=== PATIENT | female | born 1970 | race Two or more races ===

== ENCOUNTER 2021-06-11 07:43 | Outpatient (REF) | payer OTHER, SELFPAY ==
--- NOTE | 2021-06-11 | EMG_ITS ---
Left tibial and peroneal motor studies were performed. Left superficial, peroneal and sural sensory studies were performed and tibial H-reflex was obtained. Paraspinal muscles were tested with a needle. IMPRESSION: Mild peripheral neuropathy affecting sensory nerves. MD MUNA Valentine/BETO / [id number]
== END 2021-06-11 07:44 | disposition home or self-care (01) ==
LOC: HO.NEURO 07:43
PROVIDERS: Visit Provider Emergency Medicine
DX: G62.9 Polyneuropathy, unspecified (principal)
CPT/HCPCS: 95860; 95886; 95909

== ENCOUNTER 2021-08-11 07:55 | Outpatient (REF) | payer OTHER, SELFPAY ==
--- NOTE | ~2021-08-11 | MM_ITS ---
EXAMINATION: MM SCREENING DIGITAL BREAST TOMOSYNTHESIS, BILATERAL CLINICAL INFORMATION: Screening. Asymptomatic. The lifetime risk of breast cancer based on the Tyrer-Cuzick Model is 4.3%. COMPARISON: Mammography: April 03, 2019 and studies dating back to September 26, 2012 TECHNIQUE: Digital breast tomosynthesis is performed in both the craniocaudal and mediolateral oblique views along with computer-aided detection (CAD). Synthesized 2D images are generated from the tomosynthesis. FINDINGS: The breasts are heterogeneously dense, which may obscure small masses (ACR BI-RADS breast composition Category c). There are no significant masses, abnormal calcifications, or other abnormalities. MM/MM tomosynthesis screening BI IMPRESSION: There are no significant changes from prior study. ASSESSMENT: BI-RADS 1: Negative RECOMMENDATION: Routine annual mammography screening. This patient's information was entered into a reminder system with a target due date for their next mammogram.
== END 2021-08-11 07:56 | disposition home or self-care (01) ==
LOC: HO.MAMMO 07:55
PROVIDERS: PCP Family Medicine; Visit Provider Family Medicine
DX: Z12.31 Encounter for screening mammogram for malignant neoplasm of breast (principal)
CPT/HCPCS: 77063; 77067

== ENCOUNTER 2022-08-16 07:49 | Outpatient (REF) | payer OTHER, SELFPAY ==
--- NOTE | ~2022-08-16 | MM_ITS ---
EXAMINATION: MM SCREENING DIGITAL BREAST TOMOSYNTHESIS, BILATERAL CLINICAL INFORMATION: Screening. Asymptomatic. The lifetime risk of breast cancer based on the Tyrer-Cuzick Model is 4%. COMPARISON: Mammography: 08/11/2021, 04/03/2019, 03/21/2018 TECHNIQUE: Digital breast tomosynthesis is performed in both the craniocaudal and mediolateral oblique views along with computer-aided detection (CAD). Synthesized 2D images are generated from the tomosynthesis. FINDINGS: The breasts are heterogeneously dense, which may obscure small masses (ACR BI-RADS breast composition Category c). There is a fibronodular parenchymal pattern is similar to prior studies. No interval mass or developing density or architectural abnormality. Numerous bilateral round and some rim calcifications are present. The axilla and skin contours are unremarkable. There are no significant changes. MM/MM tomosynthesis screening BI IMPRESSION: No mammographic evidence of malignancy. ASSESSMENT: BI-RADS 2: Benign RECOMMENDATION: Routine annual mammography screening. This patient's information was entered into a reminder system with a target due date for their next mammogram.
== END 2022-08-16 07:50 | disposition home or self-care (01) ==
LOC: HO.MAMMO 07:49
PROVIDERS: PCP Family Medicine; Visit Provider Family Medicine
DX: Z12.31 Encounter for screening mammogram for malignant neoplasm of breast (principal)
CPT/HCPCS: 77063; 77067

== ENCOUNTER 2023-03-07 09:13 | Outpatient (REF) | payer OTHER, SELFPAY ==
[2023-03-09 13:49] LABS: TSpotTB Invalid (Negative)
== END 2023-03-07 09:14 | disposition home or self-care (01) ==
LOC: HO.LAB 09:13
PROVIDERS: PCP Family Medicine; Visit Provider Internal Medicine
DX: Z00.00 Encounter for general adult medical examination without abnormal findings (principal); Z11.1 Encounter for screening for respiratory tuberculosis
CPT/HCPCS: 36415; 86481

== ENCOUNTER 2023-03-11 10:23 | Outpatient (REF) | payer OTHER, SELFPAY ==
[2023-03-13 21:48] LABS: TSpotTB Invalid (Negative)
== END 2023-03-11 10:24 | disposition home or self-care (01) ==
LOC: HO.LAB 10:23
PROVIDERS: PCP Family Medicine; Visit Provider Internal Medicine
DX: Z00.00 Encounter for general adult medical examination without abnormal findings (principal)
CPT/HCPCS: 36415; 86481

== ENCOUNTER 2023-08-01 18:48 | Emergency (ER) | payer OTHER, SELFPAY ==
[2023-08-01 19:23] VITALS: BP 148/73; PULSE 82; RESP 18; TEMP 36.9; O2SAT 98; BMI 30.9
--- NOTE | 2023-08-01 19:24 | ED_ITS ---
HPI - General Adult General Chief complaint: Abdominal Pain Stated complaint: abd pain x1 wk Time Seen by Provider: 08/01/23 21:40 Source: patient and ensemble member Mode of arrival: ambulatory History of Present Illness HPI narrative: 53-year-old female who presents with 1 week of left upper abdominal discomfort that is not been associated with any traumatic injury, no fevers/chills/nausea/vomiting/obstipation patient has continued to have regular bowel movements. She denies any new cough or shortness of breath. Related Data Allergies Allergy/AdvReac Type Severity Reaction Status Date / Time No Known Allergies Allergy Verified 08/01/23 19:27 [No Known Allergies*] Review of Systems 2 Review of Systems: Pertinent positives and negatives as stated in HPI [facility] Past Medical History Source: nursing notes reviewed Social History Social History Alcohol intake: current Alcohol intake frequency: holidays/special occasions only Smoked in Last 30 Days: No Use of substances other than those prescribed or required for medical reasons: No Advance Directives: No Advance Directives Information Provided: No Physical Exam ED Vital Signs: Vital Signs - 24 hr 08/01/23 19:23 08/01/23 22:23 Temperature 98.4 F 98.1 F Pulse Rate 82 68 Respiratory Rate 18 16 Blood Pressure 148/73 H 123/79 Pulse Oximetry 98 99 Oxygen Delivery Method Room Air Room Air BMI result Body Mass Index 30.9 VITAL SIGNS: Reviewed. GENERAL: Well developed, well nourished, in no acute distress. HEAD: Normocephalic/atraumatic EYES: PERRLA, EOMI EARS: Ext canals without abnormality NOSE: Nares patent bilateral OROPHARYNX: no oral lesions noted, posterior pharynx clear NECK: Supple, no adenopathy LUNGS: Normal breath sounds. No adventitious sounds or accessory muscle use. SpO2<99> CARDIOVASCULAR: Regular rate and rhythm without noted murmurs ABDOMEN: Soft, minimal tenderness on palpation over area of concern, non- distended with bowel sounds. MUSCULOSKELETAL: No tenderness, deformities, or effusions noted on gross inspection. EXTREMITIES: No cyanosis, clubbing or edema. SKIN: Inspection of the skin reveals no rashes NEUROLOGIC: Alert and oriented x 4. Strength and sensation to light touch were grossly intact x 4. Course Course Course Narrative: This is a rapid medical exam: Additional HPI, GLADIS, PE not included below will be deferred to primary provider. Patient is a 53-year-old [place]de[place] speaking female presenting to the emergency department with LUQ abdominal pain for the past week. Denies fever. Reports nausea without vomiting. Took ibuprofen yesterday. Plan: labs, UA Medical Decision Making Medical Decision Making [facility] Narrative: 43-year-old female with history and clinical presentation, DDX: Musculoskeletal, gastritis, history and clinical exam not consistent with bowel obstruction/cholecystitis/pancreatitis. I reviewed all investigations and hematologic indices are grossly within normal limits as they do not demonstrate any leukocytosis/left shift, no anemia or thrombocytopenia. Chemistry indices do not demonstrate any electrolyte or liver enzyme abnormalities, no SAMANTHA and lipase is within normal limits. My interpretation is this is either musculoskeletal in nature but possibility of mild gastritis. I discussed all results and findings with the patient at bedside and she was recommended to start taking an antacid that is available [id number]. She does have follow-up appoint with her primary care provider on 08/23. Differential Diagnosis Differential Diagnoses: The differential diagnosis associated with the presentation includes Please see the discussion above Admission/Observation Consideration of admission/observation: Escalation of care including admission/observation considered Please see the discussion above Lab Data [facility] Lab Attestation statement: I reviewed the patient's lab results. Please see the discussion above 08/01/23 20:13 08/01/23 20:13 Labs: Lab Results 08/01/23 08/01/23 08/01/23 Range/Units 20:13 20:13 20:14 WBC 10.5 (4.8-10.8) X10*3/uL RBC 5.17 (4.20-5.50) X10*6/uL Hgb 14.9 (12.0-16.0) g/dl Hct 44.6 (37.0-47.0) % MCV 86.3 (80.0-98.0) fL MCH 28.8 (27.0-33.0) pg MCHC 33.4 (31.0-35.0) g/dl RDW 13.8 (11.0-16.0) % Plt Count 296 (160-400) X10*3/uL MPV 10.0 (9.4-12.3) fL Immature Gran % (Auto) 0.4 (0.0-0.4) % Neut % (Auto) 57.7 (45-73) % Lymph % (Auto) 34.9 (20-40) % Boyle % (Auto) 5.0 (2-11) % Eos % (Auto) 1.5 (0-4) % Baso % (Auto) 0.5 (0-2) % Lymph # (Auto) 3.7 (1.2-4.9) X10*3/uL Boyle # (Auto) 0.5 (0.1-1.2) X10*3/uL Eos # (Auto) 0.2 (0.0-0.4) X10*3/uL Baso # (Auto) 0.1 (0.0-0.2) X10*3/uL Abs Immat Gran (auto) 0.04 H (0.00-0.03) X10*3/uL Absolute Neuts (auto) 6.1 (2.0-8.3) x10*3/uL Absolute Nucleated RBC 0.000 (0.0-0.012) X10*3/uL Nucleated RBC % (auto) 0.0 (0.0-0.2) /100WBC Sodium 138 (135-145) mmol/L Potassium 4.0 (3.3-5.1) mmol/L Chloride 104 (96-108) mmol/L Carbon Dioxide 25 (22-29) mmol/L Anion Gap 13 (12-20) BUN 17 H (9-16) mg/dL Creatinine 1.22 (0.5-1.4) mg/dL Estim Creat Clear Calc 58.5 Estimated GFR 46 Random Glucose 244 H (60-115) mg/dL Calcium 9.8 (8.4-10.2) mg/dL Total Bilirubin 0.3 (0.0-1.0) mg/dL AST 19 (5-31) U/L ALT 19 (0-31) U/L Alkaline Phosphatase 97 (39-117) U/L Total Protein 8.0 (6.5-8.0) g/dL Albumin 4.3 (3.5-5.0) g/dL Lipase 64 (8-78) U/L Urine Color Yellow Urine Appearance Clear Urine pH 6.0 (5.0-9.0) Ur Specific [place] <= 1.005 (1.005-1.025) Urine Protein Negative (Neg-Trace) mg/dL Urine Glucose (UA) Negative (Negative) mg/dL Urine Ketones Negative (Negative) mg/dL Urine Blood Negative (Negative) Urine Nitrite Negative (Negative) Ur Leukocyte Esterase Small (1+) H (Negative) Urine RBC 0-2 (0-2) /HPF Urine WBC 6-10 H (0-5) /HPF Ur Squamous Epith Cells 3-5 (0-2) /HPF Urine Bacteria Trace (None Seen) Hyaline Casts 0-2 (0-2) /LPF External Record Review External record reviewed: Outpatient record and Prior outpatient labs Chronic Conditions Patient?s care impacted by: Diabetes Discharge Plan Discharge Clinical Impression: Abdominal discomfort, Musculoskeletal pain, Gastritis Patient Disposition: Home, Self-Care Instructions: Gastritis (ED), Diet for Stomach Ulcers and Gastritis (ED), Musculoskeletal Pain (ED) Additional Instructions: 1. Reanudar todos los medicamentos caseros seg?n lo recetado. 2. Tylenol 1000 mg, por v?a oral, cada 6 horas seg?n sea necesario para controlar el dolor. No exceda los 4000 mg en 24 horas. 3. Ibuprofeno 400 mg, por v?a oral con leche o comida, cada 6 horas seg?n sea necesario para controlar el dolor. 4. Recomiendo medicamentos para el control del ?cido de venta barbara maris Pepcid/Zantac o puedes usar Tums o Rolaids. 5. Por favor acuda a acosta kadeem programada con acosta m?dico de atenci?n primaria. Regrese a la sepideh de emergencias si los s?ntomas empeoran. 1. Resume all home medications as prescribed. 2. Tylenol 1000 mg, orally, every 6 hours as needed for pain control. Do not exceed 4000 mg within 24 hours. 3. Ibuprofen 400 mg, orally with milk or food, every 6 hours as needed for pain control. 4. I recommend ruxe-pks-hitgzyw acid control medications such as Pepcid/Zantac or you could use Tums or Rolaids. 5. Please keep your scheduled appointment with your primary care doctor. Return to the ER for worsening symptoms. Referrals: [facility] [Primary Care Provider] - Print Language: [place] Verdean
[2023-08-01 20:21] LABS: MANUAL DIFF FLAG NO
[2023-08-01 20:22] LABS: Basophils Absolute Auto 0.1 X10*3/uL (0.0-0.2); Basophils Percent Auto 0.5 % (0-2); Eosinophils Absolute Auto 0.2 X10*3/uL (0.0-0.4); Eosinophils Percent Auto 1.5 % (0-4); Hematocrit 44.6 % (37.0-47.0); Hemoglobin 14.9 g/dl (12.0-16.0); Imm Gran Abs Auto 0.04 X10*3/uL (0.00-0.03); Imm Gran Pct Auto 0.4 % (0.0-0.4); Lymphocytes Absolute Auto 3.7 X10*3/uL (1.2-4.9); Lymphocytes Percent Auto 34.9 % (20-40); Mean Corpuscular HGB Conc 33.4 g/dl (31.0-35.0); Mean Corpuscular Hemoglobin 28.8 pg (27.0-33.0); Mean Corpuscular Volume 86.3 fL (80.0-98.0); Monocytes Absolute Auto 0.5 X10*3/uL (0.1-1.2); Neutrophils Absolute Auto 6.1 x10*3/uL (2.0-8.3); Neutrophils Percent Auto 57.7 % (45-73); Platelet Count 296 X10*3/uL (160-400); Red Blood Count 5.17 X10*6/uL (4.20-5.50); Red Cell Distribution Width 13.8 % (11.0-16.0); White Blood Count 10.5 X10*3/uL (4.8-10.8)
[2023-08-01 20:23] LABS: Appearance Urine Clear; Color Urine Yellow; Glucose Urine UA Negative (Negative); Leukocyte Esterase Urine Small (1+) (Negative); Nitrite Urine Negative (Negative); Specific Gravity - Urine <= 1.005 (1.005-1.025); UMIC TRIGGER UACC YES; Urine Blood Negative (Negative); Urine Ketones Negative (Negative); Urine Protein Negative (Neg-Trace)
[2023-08-01 20:28] LABS: Bacteria Urine Trace (None Seen); Hyaline Casts Urine 0-2 /LPF (0-2); RBC Urine 0-2 /HPF (0-2); UACC Culture Trigger YES
[2023-08-01 20:36] LABS: Alanine Aminotransferase 19 U/L (0-31); Albumin Level 4.3 g/dL (3.5-5.0); Alkaline Phosphatase 97 U/L (39-117); Anion Gap 13 (12-20); Aspartate Amino Transferase 19 U/L (5-31); Bilirubin Total 0.3 mg/dL (0.0-1.0); Blood Urea Nitrogen 17 mg/dL (9-16); Calcium 9.8 mg/dL (8.4-10.2); Carbon Dioxide 25 mmol/L (22-29); Chloride 104 mmol/L (96-108); Creatinine Clr Calc Pharmacy 58.5; Estimated Glomerular Filt Rate 46; Glucose Random 244 mg/dL (60-115); Lipase 64 U/L (8-78); Sodium 138 mmol/L (135-145)
[2023-08-01 22:23] VITALS: BP 123/79; PULSE 68; RESP 16; TEMP 36.7; O2SAT 99
== END 2023-08-02 03:22 | disposition home or self-care (01) ==
PROVIDERS: Registered Nurse Emergency; Emergency Provider Student in an Organized Health Care Education/Training Program
DX: R10.12 Left upper quadrant pain (principal); K29.70 Gastritis, unspecified, without bleeding; M79.10 Myalgia, unspecified site; Z79.899 Other long term (current) drug therapy
CPT/HCPCS: 36415; 80053; 81001; 83690; 85025; 87086; 99283; 99284

== ENCOUNTER 2023-08-22 07:55 | Outpatient (REF) | payer OTHER, SELFPAY ==
--- NOTE | ~2023-08-22 | MM_ITS ---
EXAMINATION: MM SCREENING DIGITAL BREAST TOMOSYNTHESIS, BILATERAL CLINICAL INFORMATION: Screening. Asymptomatic. COMPARISON: Mammography: 08/15/2022, 08/11/2021, 04/03/2019, 03/21/2018 TECHNIQUE: Digital breast tomosynthesis is performed in both the craniocaudal and mediolateral oblique views along with computer-aided detection (CAD). Synthesized 2D images are generated from the tomosynthesis. FINDINGS: The breasts are heterogeneously dense, which may obscure small masses (ACR BI-RADS breast composition Category c). Once again, there are benign type scattered calcifications in both breasts with no aggressive changes. No suspicious grouping noted. They appear unchanged from prior exams. Heterogeneously dense parenchyma once again has a somewhat fibronodular appearance, which is unchanged. The overall pattern is stable. There are no suspicious masses or areas of architectural distortion in either breast. MM/MM tomosynthesis screening BI IMPRESSION: No mammographic evidence of malignancy. Stable examination. Stable benign findings including bilateral breast calcifications without any aggressive changes. ASSESSMENT: BI-RADS BI-RADS 2 - Benign Findings RECOMMENDATION: Routine annual mammography screening. 1 year F/U This examination should not preclude the clinical evaluation of a suspicious palpable abnormality. This patient's information was entered into a reminder system with a target due date for their next mammogram.
== END 2023-08-22 07:56 | disposition home or self-care (01) ==
LOC: HO.MAMMO 07:55
PROVIDERS: PCP Family Medicine; Visit Provider Family Medicine
DX: Z12.31 Encounter for screening mammogram for malignant neoplasm of breast (principal)
CPT/HCPCS: 77063; 77067

== ENCOUNTER → 2023-08-22 08:00 | Outpatient (BNV) | payer OTHER, SELFPAY | PROVIDERS: PCP Family Medicine; Visit Provider Radiology Diagnostic Radiology | DX: Z12.31 Encounter for screening mammogram for malignant neoplasm of breast (principal) | CPT/HCPCS: 77063; 77067 ==

== ENCOUNTER 2023-08-23 12:00 | Outpatient (REF) | payer OTHER, SELFPAY ==
[2023-08-23 13:04] LABS: MANUAL DIFF FLAG NO
[2023-08-23 13:12] LABS: Basophils Percent Auto 0.5 % (0-2); Eosinophils Absolute Auto 0.1 X10*3/uL (0.0-0.4); Eosinophils Percent Auto 1.3 % (0-4); Hemoglobin 15.3 g/dl (12.0-16.0); Imm Gran Abs Auto 0.02 X10*3/uL (0.00-0.03); Imm Gran Pct Auto 0.3 % (0.0-0.4); Lymphocytes Absolute Auto 2.6 X10*3/uL (1.2-4.9); Mean Corpuscular HGB Conc 33.3 g/dl (31.0-35.0); Mean Corpuscular Hemoglobin 28.8 pg (27.0-33.0); Mean Corpuscular Volume 86.6 fL (80.0-98.0); Mean Platelet Volume 9.9 fL (9.4-12.3); Monocytes Absolute Auto 0.5 X10*3/uL (0.1-1.2); Monocytes Percent Auto 6.1 % (2-11); Neutrophils Absolute Auto 4.4 x10*3/uL (2.0-8.3); Neutrophils Percent Auto 57.8 % (45-73); Platelet Count 361 X10*3/uL (160-400); Red Blood Count 5.31 X10*6/uL (4.20-5.50); Red Cell Distribution Width 13.7 % (11.0-16.0); White Blood Count 7.7 X10*3/uL (4.8-10.8)
[2023-08-23 14:05] LABS: Creatinine Urine 184.34 mg/dL; Microalbum/Creatinine Ratio Ur 61.8 ug/mg cr (<30)
[2023-08-23 14:08] LABS: Cholesterol 163 mg/dL (<200); HDL Cholesterol 36 mg/dL (>40); LDL Cholesterol Calculated 86 mg/dL (<100); Triglycerides 208 mg/dL (<150)
[2023-08-23 14:09] LABS: Alanine Aminotransferase 21 U/L (0-31); Albumin Level 4.2 g/dL (3.5-5.0); Alkaline Phosphatase 104 U/L (39-117); Anion Gap 13 (12-20); Aspartate Amino Transferase 23 U/L (5-31); Bilirubin Total 0.3 mg/dL (0.0-1.0); Blood Urea Nitrogen 15 mg/dL (9-16); Calcium 9.2 mg/dL (8.4-10.2); Carbon Dioxide 26 mmol/L (22-29); Chloride 104 mmol/L (96-108); Estimated Glomerular Filt Rate 59; Glucose Random 248 mg/dL (60-115); Potassium 3.9 mmol/L (3.3-5.1); Sodium 139 mmol/L (135-145); Total Protein 8.2 g/dL (6.5-8.0)
[2023-08-23 14:20] LABS: TSH reflex Free T4 2.77 uIU/mL (0.32-4.0)
[2023-08-23 14:28] LABS: Folate 15.4 ng/mL (> or = 4.0); Vitamin B12 549 pg/mL (200-900)
[2023-08-23 14:51] LABS: Reflex LDLD? No
== END 2023-08-23 12:01 | disposition home or self-care (01) ==
LOC: HO.HHCL 12:00
PROVIDERS: Visit Provider Family Medicine
DX: E11.69 Type 2 diabetes mellitus with other specified complication (principal); E03.9 Hypothyroidism, unspecified; R10.12 Left upper quadrant pain
CPT/HCPCS: 36415; 80053; 80061; 82043; 82570; 82607; 82746; 84443; 85025

== ENCOUNTER 2023-09-20 08:19 | Outpatient (REF) | payer OTHER, SELFPAY ==
--- NOTE | ~2023-09-20 | CT_ITS ---
EXAMINATION: CT ABDOMEN WITHOUT CONTRAST CLINICAL INFORMATION: Left upper quadrant pain, hydroureter COMPARISON: From 07/27/2008 TECHNIQUE: Contiguous axial thin section helical images of the abdomen were performed without contrast. The data set was reformatted in the coronal and sagittal planes and reviewed on an independent workstation. This CT examination was performed using dose optimization techniques as appropriate, variously including the following: *Automated exposure control *Adjustment of mA and/or kV according to patient size (this includes techniques or standardized protocols for targeted exams where dose is matched to indication/reason for exam; i.e. extremities or head) *Use of iterative reconstruction technique DLP: 372 mGy-cm FINDINGS: LUNG BASES: Clear LIVER, GALLBLADDER, BILIARY TREE: Liver is of low attenuation due to hepatic steatosis without intrahepatic masses or ductal dilatation gallbladder is unremarkable PANCREAS: There are no pancreatic masses or ductal dilatation. SPLEEN: There is unremarkable ADRENAL GLANDS AND KIDNEYS: Adrenal glands are normal. Right kidney replaced by large cystic mass measured approximately 23 x 20 x 15.3 cm with dilated ureter. BOWEL LOOPS: Visualized loops of bowel and stomach are normal LYMPH NODES: Normal. VASCULAR: Unremarkable. BONES: Unremarkable CT/CT abdomen wo IV con IMPRESSION: No interval change in an appearance of replaced by cystic masses right kidney and hepatic steatosis. No abnormal findings in the left upper outer quadrant, to explain pain Fleischner guidelines were followed.
== END 2023-09-20 08:20 | disposition home or self-care (01) ==
LOC: HO.CT 08:19
PROVIDERS: Visit Provider Family Medicine
DX: R10.12 Left upper quadrant pain (principal); N28.9 Disorder of kidney and ureter, unspecified; N13.4 Hydroureter
CPT/HCPCS: 74150

== ENCOUNTER 2023-10-03 14:52 | Outpatient (AMB) | payer OTHER, SELFPAY ==
--- NOTE | 2023-10-03 15:01 | MHC.OFFVIS ---
Intake Intake Visit Reasons: Hydroureter Intake Note: New Patient presents for initial visit for hydroureter Urology Medications: none Blood Thinner: none Wild Animal Caretaker Required: Yes Wild Animal Caretaker Name: MONE MILLERIKER Accompanied by: Self / Same As Patient Allergies No Known Allergies [No Known Allergies*] Allergy (Verified 10/03/23 15:33) Medication List - Last Reconciled 10/03/23 by KASHIF Elizabeth- calcium carbonate-vitamin D3 600 mg-5 mcg (200 unit) tabs PO dulaglutide (Trulicity) 0.75 mg subcut QWEEK gabapentin mg PO levothyroxine 125 mcg PO DAILY losartan 25 mg PO DAILY metformin ER 1,000 mg PO BID omega 2-qya-ypo-fish oil 300 mg (120 mg- 180mg)-1,000 mg caps PO pioglitazone 45 mg PO DAILY pravastatin 80 mg PO DAILY HPI HPI Comments History of Present Illness Details Luh is a very pleasant 53-year-old Kyrgyz-speaking female patient of Dr. Trevino. She has a past medical history of dyslipidemia, type 2 diabetes, hypothyroidism, hypertension, and nonfunctioning kidney. She presents to the office today as a new patient for right-sided cystic mass on recent CT. In discussion with the patient today she reports to be doing and feeling well. She reports having followed up with her PCP for left upper quadrant pain she had been experiencing at which time a CT of the abdomen and pelvis without contrast was ordered. These results reviewed with the patient today. Adrenal glands are normal. Right kidney replaced by large cystic mass measuring approximately 23 x 20 x 15.3 cm. No interval change in appearance of replaced by cystic masses right kidney and hepatic stenosis. Patient reports having followed up with Urology in the past regarding her nonfunctioning kidney as well as cystic mass however states follow up was many years ago. In review of patient's chart it appears last CT urogram was approximately in 2007. Discussed obtaining more recent imaging for further assessment evaluation. Patient is agreeable. She otherwise denies any bothersome urinary issues or concerns at this time. She denies urinary urgency, urinary frequency, incontinence, nocturia, hematuria, dysuria, foul smelling urine, changes to urinary stream, flank pain, fever, and or chills. She is happy with her current voiding parameters. She discusses left-sided upper quadrant pain she had been experiencing has since subsided. In office urinalysis results reviewed with the patient today. She otherwise offers no other issues or concerns at this time. [facility] Medical History (Updated 10/03/23 @ 20:46 by SALVADOR Elizabeth) Dyslipidemia Type 2 diabetes mellitus Hypothyroidism Non-functioning kidney Hypertension Left upper quadrant pain Social History Alcohol intake: current Alcohol intake frequency: holidays/special occasions only Review of Systems Const Reports as per HPI Eyes Reports no additional complaints ENT Reports no additional complaints Card Reports as per HPI Resp Reports no additional complaints GI Reports as per HPI Reports as per HPI Musc Reports no additional complaints Neuro Reports no additional complaints Psych Reports no additional complaints Endo Reports as per HPI Demond/Lymph Reports no additional complaints Aller/Immun Reports no additional complaints Physical Exam Const General: cooperative, healthy appearing, comfortable, no acute distress, well developed, alert and awake Nutritional Appearance: overweight Orientation/consciousness: patient oriented x3 Limitations: no limitations HEENT Head: Yes normal to inspection, Yes normocephalic and Yes atraumatic Ears: hearing grossly normal bilaterally Eyes General: appearance normal, both eyes and all related structures Neck Neck: Yes normal visual inspection and Yes trachea midline Chest Chest palpation & inspection: normal inspection of the chest Resp Effort & Inspection: normal respiratory effort and able to speak in complete sentences Cardio Rate: regular rate GI Inspection: Yes normal to inspection General: Yes no CVA tenderness Back/Spine/Pelvis Back: no CVA tenderness Skin General skin exam: no rashes or lesions noted Neuro General: patient oriented x3 Extrem General: Yes normal to inspection Psych Appearance: grossly normal and well kempt Mental Status: mental status grossly normal Speech and movement: Normal speech and movement present and Clear speech present Affect: normal affect Attitude: cooperative Thought process: Normal thought process present Thought content: Normal thought content present Insight: Fair insight present (Psych) Judgement: Fair judgement present (Psych) Results AMB Urinalysis, Automated UA Leukoctes 0 He/uL Last Edit by Katelyn Baumann on 10/03/23 15:19 UA Nitrite Negative Last Edit by Katelyn Baumann on 10/03/23 15:19 UA Urobilinogen 0.2 mg/dL Last Edit by Katelyn Baumann on 10/03/23 15:19 UA Protein 0 mg/dL Last Edit by Katelyn Baumann on 10/03/23 15:19 UA pH 6.0 Last Edit by Katelyn Baumann on 10/03/23 15:19 UA Blood 0 Donte/uL Last Edit by Katelyn Baumann on 10/03/23 15:19 UA Specific [place] 1.015 Last Edit by Katelyn Baumann on 10/03/23 15:19 UA Ketone Negative Last Edit by Katelyn Baumann on 10/03/23 15:19 UA Bilirubin 0 mg/dL Last Edit by Katelyn Baumann on 10/03/23 15:19 UA Glucose 0 mg/dL Last Edit by Katelyn Baumann on 10/03/23 15:19 Results Reviewed Results Reviewed: Laboratory Last Values Urine pH (Auto) 6.0 10/03/23 15:18 Specific [place] (Auto) 1.015 10/03/23 15:18 Urine Protein (Auto) 0 mg/dL 10/03/23 15:18 Glucose (UA)(Auto) 0 mg/dL 10/03/23 15:18 Urine Ketones (Auto) Negative 10/03/23 15:18 Urine Blood (Auto) 0 Donte/uL 10/03/23 15:18 Urine Nitrite (Auto) Negative 10/03/23 15:18 Urine Bilirubin (Auto) 0 mg/dL 10/03/23 15:18 Urine Urobilinogen (Auto) 0.2 mg/dL 10/03/23 15:18 Leukocyte Esterase (Auto) 0 He/uL 10/03/23 15:18 Date of Service: 09/20/23 EXAMINATION: CT ABDOMEN WITHOUT CONTRAST FINDINGS: LUNG BASES: Clear LIVER, GALLBLADDER, BILIARY TREE: Liver is of low attenuation due to hepatic steatosis without intrahepatic masses or ductal dilatation gallbladder is unremarkable PANCREAS: There are no pancreatic masses or ductal dilatation. SPLEEN: There is unremarkable ADRENAL GLANDS AND KIDNEYS: Adrenal glands are normal. Right kidney replaced by large cystic mass measured approximately 23 x 20 x 15.3 cm with dilated ureter. BOWEL LOOPS: Visualized loops of bowel and stomach are normal LYMPH NODES: Normal. VASCULAR: Unremarkable. BONES: Unremarkable CT/CT abdomen wo IV con IMPRESSION: No interval change in an appearance of replaced by cystic masses right kidney and hepatic steatosis. No abnormal findings in the left upper outer quadrant, to explain pain. Assessment & Plan Assessment & Plan (1) Right renal mass: Code(s): N28.89 - Other specified disorders of kidney and ureter (2) Non-functioning kidney: Code(s): N28.9 - Disorder of kidney and ureter, unspecified Plan In office urinalysis results reviewed with the patient today; as noted above. Recent CT results reviewed with the patient today; as noted above. Will obtain CT renal mass protocol for further assessment evaluation. BUN and creatinine ordered for imaging Patient denies any bothersome urinary issues at this time. Patient reports be happy with current voiding parameters. Educated and encouraged on the importance of drinking plenty of water daily. Follow-up in 1-2 months with imaging to be completed prior; or sooner with any issues, concerns, and or questions. Orders: Orders Creatinine Today N28.89 - Other specified disorders of kidney and ureter AMB Urinalysis Automated Today Z13.9 - Encounter for screening, unspecified CT abdomen pelvis wo/w IV con Today N28.89 - Other specified disorders of kidney and ureter Blood Urea Nitrogen Today N28.89 - Other specified disorders of kidney and ureter Patient Instructions: The patient had an opportunity to ask questions regarding the treatment plan. All questions were answered. Physical exam, labs, and imaging were discussed and reviewed in detail. As well as risks, benefits, and discussion of treatment choices. No major barriers to understanding were identified. The patient expressed understanding and agreement with the above treatment plan. The patient was made aware they should contact our office by phone for worsening of their current condition, the appearance of new symptoms, or with any questions or concerns. Compliance is encouraged with any medications and follow up testing that is ordered. It is a privilege to be allowed the opportunity to participate in? your urological care.? Again, if you have any questions or concerns If you have any questions or concerns please do not hesitate to contact me. The office is [phone]. This note is constructed using voice recognition software. While every effort has been made to ensure accuracy compact assembler errors may have been included. Yours sincerely, SALVADOR Elizabeth Coding Level of Care Code New Pt Level 3 (88478) Diagnoses Right renal mass N28.89 Non-functioning kidney N28.9
== END 2023-10-03 15:40 | disposition home or self-care (01) ==
PROVIDERS: PCP Family Medicine; Visit Provider Nurse Practitioner Family
DX: N28.89 Other specified disorders of kidney and ureter (principal); N28.9 Disorder of kidney and ureter, unspecified
CPT/HCPCS: 99203

== ENCOUNTER → 2023-10-03 14:52 | Outpatient (BNVA) | payer OTHER, SELFPAY | PROVIDERS: PCP Family Medicine; Visit Provider Nurse Practitioner Family | DX: N28.89 Other specified disorders of kidney and ureter (principal); N28.9 Disorder of kidney and ureter, unspecified | CPT/HCPCS: 81003; 99202 ==

== ENCOUNTER 2023-10-17 11:16 | Outpatient (REF) | payer OTHER, SELFPAY ==
[2023-10-17 14:27] LABS: Blood Urea Nitrogen 15 mg/dL (9-16); Estimated Glomerular Filt Rate > 60
== END 2023-10-17 11:17 | disposition home or self-care (01) ==
LOC: HO.HHCL 11:16
PROVIDERS: Visit Provider Nurse Practitioner Family
DX: N28.89 Other specified disorders of kidney and ureter (principal)
CPT/HCPCS: 36415; 82565; 84520

== ENCOUNTER 2023-10-18 15:42 | Outpatient (REF) | payer OTHER, SELFPAY ==
--- NOTE | ~2023-10-18 | CT_ITS ---
EXAMINATION: CT ABDOMEN AND PELVIS WITHOUT AND WITH CONTRAST CLINICAL INFORMATION: Cystic mass in the right kidney, follow-up COMPARISON: 09/20/2023 TECHNIQUE: Multidetector volumetric imaging was performed of the abdomen and pelvis before and after the IV administration of 85 mL of Omnipaque 300 intravenous contrast. Sagittal and coronal reformatted images were obtained on the technologist's workstation. This CT examination was performed using dose optimization techniques as appropriate, variously including the following: *Automated exposure control *Adjustment of mA and/or kV according to patient size (this includes techniques or standardized protocols for targeted exams where dose is matched to indication/reason for exam; i.e. extremities or head) *Use of iterative reconstruction technique DLP: 864 mGy-cm FINDINGS: LUNG BASES: The visualized lung bases are unremarkable. LIVER, GALLBLADDER, AND BILIARY TREE: The liver is normal in size, shape, and of low attenuation. No focal hepatic lesion or biliary ductal dilatation is present. The gallbladder is unremarkable with no evidence of radiopaque gallstones, gallbladder wall thickening, or obvious pericholecystic inflammatory changes. PANCREAS: Unremarkable SPLEEN: Unremarkable ADRENAL GLANDS: Unremarkable KIDNEYS AND URETERS: Left kidney is unremarkable. Right kidney replaced by cystic mass with thin septations, measured 21 x 21 x 15.4 cm unchanged since previous study. There is mass effect on the liver and right side of the colon. BLADDER: Unremarkable GASTROINTESTINAL TRACT: The small and large bowel are unremarkable. The appendix is unremarkable. ABDOMINAL WALL: No significant hernia is appreciated. LYMPH NODES: Normal VASCULAR: Unremarkable PELVIC VISCERA: Uterus is surgically absent. OSSEOUS STRUCTURES: Unremarkable CT/CT abdomen pelvis wo/w IV con IMPRESSION: No interval change in appearance of massively replaced by fluid right kidney with thin septations. Hepatic steatosis Fleischner guidelines were followed.
[2023-10-18] MEDS: iohexoL 350 MG/ML 100 ML INFUS..BTL IV (16:29)
== END 2023-10-18 15:43 | disposition home or self-care (01) ==
LOC: HO.CT 15:42
PROVIDERS: PCP Family Medicine; Visit Provider Nurse Practitioner Family
DX: N28.89 Other specified disorders of kidney and ureter (principal)
CPT/HCPCS: 74178; Q9967

== ENCOUNTER 2023-11-07 09:39 | Outpatient (AMB) | payer OTHER, SELFPAY ==
--- NOTE | 2023-11-07 09:42 | A.OFFVIS_ITS ---
Intake Intake Visit Reasons: 5w/CT(set) Intake Note: Patient presents for follow up visit for hydroureter/ct scan (imaging 10/18/23) Urology Medications: none Blood Thinner: none Lumber Yard Worker Required: Yes Lumber Yard Worker Name: MONE WADEIKER Accompanied by: Self / Same As Patient Allergies No Known Allergies [No Known Allergies*] Allergy (Verified 11/07/23 19:07) Medication List - Last Reconciled 11/07/23 by KASHIF Elizabeth- calcium carbonate-vitamin D3 600 mg-5 mcg (200 unit) tabs PO dulaglutide (Trulicity) mg subcut dulaglutide (Trulicity) 0.75 mg subcut QWEEK gabapentin mg PO levothyroxine 125 mcg PO DAILY losartan 25 mg PO DAILY metformin ER 1,000 mg PO BID omega 0-upl-zqc-fish oil 300 mg (120 mg- 180mg)-1,000 mg caps PO pioglitazone 45 mg PO DAILY pravastatin 80 mg PO DAILY HPI HPI Comments History of Present Illness Details Luh is a very pleasant 53-year-old [place]wandan-speaking female patient of Dr. Trevino. She has a past medical history of dyslipidemia, type 2 diabetes, hypothyroidism, hypertension, and nonfunctioning kidney. She presents to the office today for a follow up. Of note, patient was seen approximately 1 month ago as a new patient for right-sided cystic mass on recent as a new patient for right-sided cystic mass on recent CT KUB thus a CT urogram was ordered for further assessment evaluation. These results were reviewed with the patient today. Left kidney is unremarkable. Right kidney replaced by cystic mass with thin septations measuring 21 x 21 x 15.4 cm unchanged since previous studies. There is mass effect on the liver and right side of the colon. The bladder is unremarkable. In discussion with the patient today she reports to be doing and feeling well. Discussed CT findings as noted above as well as reviewed previous imaging dating back to 2018. It appears cystic mass has been stable. Discussed obtaining nuclear renal scan for further assessment evaluation. However, patient reports previously undergoing this exam and is already aware that she has a right nonfunctioning kidney. Discussed at length affects of nonfunctioning kidney she otherwise denies any bothersome urinary issues. She otherwise denies any bothersome urinary issues or concerns at this time. She denies urinary urgency, urinary frequency, incontinence, nocturia, hematuria, dysuria, foul smelling urine, changes to urinary stream, flank pain, fever, and or chills. She is happy with her current voiding parameters. In office urinalysis results reviewed with the patient today. She otherwise offers no o ther issues or concerns at this time. BUN: 08/20--17, 08/20--15, and 10/20--15 CREATNINE: 08/20--1.22, 08/20--0.98, and 10/20 0.87 PFSH Medical History Dyslipidemia Type 2 diabetes mellitus Hypothyroidism Non-functioning kidney Hypertension Left upper quadrant pain Social History Alcohol intake: current Alcohol intake frequency: holidays/special occasions only Review of Systems Const Reports as per HPI Eyes Reports no additional complaints ENT Reports no additional complaints Card Reports as per HPI Resp Reports no additional complaints GI Reports as per HPI Reports as per HPI Musc Reports no additional complaints Neuro Reports no additional complaints Psych Reports no additional complaints Endo Reports as per HPI Demond/Lymph Reports no additional complaints Aller/Immun Reports no additional complaints Physical Exam Const General: cooperative, healthy appearing, comfortable, no acute distress, well developed, alert and awake Nutritional Appearance: overweight Orientation/consciousness: patient oriented x3 Limitations: no limitations HEENT Head: Yes normal to inspection, Yes normocephalic and Yes atraumatic Ears: hearing grossly normal bilaterally Eyes General: appearance normal, both eyes and all related structures Neck Neck: Yes normal visual inspection and Yes trachea midline Chest Chest palpation & inspection: normal inspection of the chest Resp Effort & Inspection: normal respiratory effort and able to speak in complete sentences Cardio Rate: regular rate GI Inspection: Yes normal to inspection General: Yes no CVA tenderness Back/Spine/Pelvis Back: no CVA tenderness Skin General skin exam: no rashes or lesions noted Neuro General: patient oriented x3 Extrem General: Yes normal to inspection Psych Appearance: grossly normal and well kempt Mental Status: mental status grossly normal Speech and movement: Normal speech and movement present and Clear speech present Affect: normal affect Attitude: cooperative Thought process: Normal thought process present Thought content: Normal thought content present Insight: Fair insight present (Psych) Judgement: Fair judgement present (Psych) Results AMB Urinalysis, Automated UA Leukoctes 0 He/uL Last Edit by [employer] on 11/07/23 10:01 UA Nitrite Negative Last Edit by [employer] on 11/07/23 10:01 UA Urobilinogen 0.2 mg/dL Last Edit by [employer] on 11/07/23 10:01 UA Protein 15 mg/dL Last Edit by [employer] on 11/07/23 10:01 UA pH 6.0 Last Edit by [employer] on 11/07/23 10:01 UA Blood 0 Donte/uL Last Edit by [employer] on 11/07/23 10:01 UA Specific [place] 1.020 Last Edit by [employer] on 11/07/23 10:01 UA Ketone Negative Last Edit by [employer] on 11/07/23 10:01 UA Bilirubin 0 mg/dL Last Edit by [employer] on 11/07/23 10:01 UA Glucose 100 mg/dL Last Edit by [employer] on 11/07/23 10:01 Results Reviewed Results Reviewed: Laboratory Last Values Urine pH (Auto) 6.0 11/07/23 09:43 Specific [place] (Auto) 1.020 11/07/23 09:43 Urine Protein (Auto) 15 mg/dL 11/07/23 09:43 Glucose (UA)(Auto) 100 mg/dL 11/07/23 09:43 Urine Ketones (Auto) Negative 11/07/23 09:43 Urine Blood (Auto) 0 Donte/uL 11/07/23 09:43 Urine Nitrite (Auto) Negative 11/07/23 09:43 Urine Bilirubin (Auto) 0 mg/dL 11/07/23 09:43 Urine Urobilinogen (Auto) 0.2 mg/dL 11/07/23 09:43 Leukocyte Esterase (Auto) 0 He/uL 11/07/23 09:43 Date of Service: 10/18/23 EXAMINATION: CT ABDOMEN AND PELVIS WITHOUT AND WITH CONTRAST FINDINGS: LUNG BASES: The visualized lung bases are unremarkable. LIVER, GALLBLADDER, AND BILIARY TREE: The liver is normal in size, shape, and of low attenuation. No focal hepatic lesion or biliary ductal dilatation is present. The gallbladder is unremarkable with no evidence of radiopaque gallstones, gallbladder wall thickening, or obvious pericholecystic inflammatory changes. PANCREAS: Unremarkable SPLEEN: Unremarkable ADRENAL GLANDS: Unremarkable KIDNEYS AND URETERS: Left kidney is unremarkable. Right kidney replaced by cystic mass with thin septations, measured 21 x 21 x 15.4 cm unchanged since previous study. There is mass effect on the liver and right side of the colon. BLADDER: Unremarkable GASTROINTESTINAL TRACT: The small and large bowel are unremarkable. The appendix is unremarkable. ABDOMINAL WALL: No significant hernia is appreciated. LYMPH NODES: Normal VASCULAR: Unremarkable PELVIC VISCERA: Uterus is surgically absent. OSSEOUS STRUCTURES: Unremarkable IMPRESSION: No interval change in appearance of massively replaced by fluid right kidney with thin septations. Hepatic steatosis Fleischner guidelines were followed. Assessment & Plan Assessment & Plan (1) Right renal mass: Code(s): N28.89 - Other specified disorders of kidney and ureter (2) Non-functioning kidney: Code(s): N28.9 - Disorder of kidney and ureter, unspecified Plan In office urinalysis results reviewed with the patient today; as noted above. Recent CT urogram results reviewed with the patient today; as noted above. Patient denies any bothersome urinary issues at this time. Patient reports be happy with current voiding parameters. Educated and encouraged on the importance of drinking plenty of water daily. Discussed surveillance monitoring Discussed and stressed the importance of avoiding NSAIDs as well as managing diabetes as patient only has 1 functioning kidney as well as for overall health and well-being. Will obtain renal ultrasound in 1 year. Follow-up in 1 year with imaging to be completed prior; or sooner with any issues, concerns, and or questions. Orders: Orders AMB Urinalysis Automated Today Z13.9 - Encounter for screening, unspecified Patient Instructions: The patient had an opportunity to ask questions regarding the treatment plan. All questions were answered. Physical exam, labs, and imaging were discussed and reviewed in detail. As well as risks, benefits, and discussion of treatment choices. No major barriers to understanding were identified. The patient expressed understanding and agreement with the above treatment plan. The patient was made aware they should contact our office by phone for worsening of their current condition, the appearance of new symptoms, or with any questions or concerns. Compliance is encouraged with any medications and follow up testing that is ordered. It is a privilege to be allowed the opportunity to participate in? your urological care.? Again, if you have any questions or concerns If you have any questions or concerns please do not hesitate to contact me. The office is [phone]. This note is constructed using voice recognition software. While every effort has been made to ensure accuracy airplane flight attendant errors may have been included. Yours sincerely, SALVADOR Elizabeth Coding Level of Care Code Est Pt Level 3 (89017) Diagnoses Right renal mass N28.89 Non-functioning kidney N28.9
== END 2023-11-07 10:16 | disposition home or self-care (01) ==
PROVIDERS: PCP Family Medicine; Visit Provider Nurse Practitioner Family
DX: N28.89 Other specified disorders of kidney and ureter (principal); N28.9 Disorder of kidney and ureter, unspecified; Z13.9 Encounter for screening, unspecified
CPT/HCPCS: 99213

== ENCOUNTER → 2023-11-07 09:39 | Outpatient (BNVA) | payer OTHER, SELFPAY | PROVIDERS: PCP Family Medicine; Visit Provider Nurse Practitioner Family | DX: N28.89 Other specified disorders of kidney and ureter (principal); N28.9 Disorder of kidney and ureter, unspecified | CPT/HCPCS: 81003; 99212 ==

== ENCOUNTER 2024-08-13 12:27 | Outpatient (REF) | payer OTHER, SELFPAY ==
[2024-08-13 14:42] LABS: Creatinine Urine 81.79 mg/dL; Microalbum/Creatinine Ratio Ur 23.2 ug/mg cr (<30)
[2024-08-13 15:05] LABS: Folate 12.7 ng/mL (> or = 4.0); Vitamin B12 318 pg/mL (200-900)
[2024-08-13 15:19] LABS: Alanine Aminotransferase 12 U/L (0-31); Albumin Level 4.2 g/dL (3.5-5.0); Alkaline Phosphatase 106 U/L (39-117); Anion Gap 14 (12-20); Aspartate Amino Transferase 17 U/L (5-31); Bilirubin Total 0.3 mg/dL (0.0-1.0); Blood Urea Nitrogen 18 mg/dL (9-16); Calcium 9.5 mg/dL (8.4-10.2); Carbon Dioxide 23 mmol/L (22-29); Chloride 107 mmol/L (96-108); Cholesterol 158 mg/dL (<200); Estimated Glomerular Filt Rate > 60; Glucose Random 144 mg/dL (60-115); HDL Cholesterol 38 mg/dL (>40); LDL Cholesterol Calculated 66 mg/dL (<100); Potassium 4.2 mmol/L (3.3-5.1); Sodium 140 mmol/L (135-145); Total Protein 7.6 g/dL (6.5-8.0); Triglycerides 273 mg/dL (<150)
[2024-08-13 15:21] LABS: Reflex LDLD? No
[2024-08-13 15:32] LABS: Free T4 (Free Thyroxine) 0.93 ng/dL (0.71-1.85); Thyroid Stimulating Hormone 3.26 uIU/mL (0.32-4.0); Vitamin D 25-OH Total 16.8 ng/mL (>30)
== END 2024-08-13 12:28 | disposition home or self-care (01) ==
LOC: HO.HHCL 12:27
PROVIDERS: Visit Provider Family Medicine
DX: E11.69 Type 2 diabetes mellitus with other specified complication (principal)
CPT/HCPCS: 36415; 80053; 80061; 82043; 82306; 82570; 82607; 82746; 84439; 84443

== ENCOUNTER 2024-08-27 07:30 | Outpatient (REF) | payer OTHER, SELFPAY ==
--- NOTE | ~2024-08-27 | MM_ITS ---
EXAMINATION: MM SCREENING DIGITAL BREAST TOMOSYNTHESIS, BILATERAL CLINICAL INFORMATION: Screening. Asymptomatic. COMPARISON: Mammography: Comparison is made with available priors TECHNIQUE: Digital breast mammography with tomosynthesis is performed in both the craniocaudal and mediolateral oblique views along with computer-aided detection (CAD). FINDINGS: The breasts are heterogeneously dense, which may obscure small masses (ACR BI-RADS breast composition Category c). There are no significant masses, abnormal calcifications, or other abnormalities. MM/MM tomosynthesis screening BI IMPRESSION: No mammographic evidence of malignancy. ASSESSMENT: BI-RADS BI-RADS 1 - Negative RECOMMENDATION: Routine annual mammography screening. 1 year F/U This examination should not preclude the clinical evaluation of a suspicious palpable abnormality. This patient's information was entered into a reminder system with a target due date for their next mammogram. Electronically signed by: Eli Chandra DO 09/06/2024 06:35 PM EDT
== END 2024-08-27 07:31 | disposition home or self-care (01) ==
LOC: HO.MAMMO 07:30
PROVIDERS: PCP Family Medicine; Visit Provider Family Medicine
DX: Z12.31 Encounter for screening mammogram for malignant neoplasm of breast (principal)
CPT/HCPCS: 77063; 77067

== ENCOUNTER → 2024-08-27 07:45 | Outpatient (BNV) | payer OTHER, SELFPAY | PROVIDERS: PCP Family Medicine; Visit Provider Internal Medicine | DX: Z12.31 Encounter for screening mammogram for malignant neoplasm of breast (principal) | CPT/HCPCS: 77063; 77067 ==

== ENCOUNTER 2024-11-19 09:21 | Outpatient (REF) | payer OTHER, SELFPAY ==
[2024-11-19 12:19] LABS: Alanine Aminotransferase 16 U/L (0-31); Albumin Level 4.3 g/dL (3.5-5.0); Alkaline Phosphatase 87 U/L (39-117); Aspartate Amino Transferase 31 U/L (5-31); Bilirubin Direct 0.1 mg/dL (0.0-0.5); Bilirubin Total 0.3 mg/dL (0.0-1.0); Cholesterol 156 mg/dL (<200); HDL Cholesterol 42 mg/dL (>40); LDL Cholesterol Calculated 55 mg/dL (<100); Total Protein 8.1 g/dL (6.5-8.0); Triglycerides 296 mg/dL (<150)
[2024-11-19 12:36] LABS: Estimated Average Glucose 166 mg/dL; Hemoglobin A1C 220.9425 umol/L; Hemoglobin A1c % 7.4 % (<6.0); Total Hemoglobin (HGBA1C) 3828.0542 umol/L
== END 2024-11-19 09:22 | disposition home or self-care (01) ==
LOC: HO.HHCL 09:21
PROVIDERS: Visit Provider Family Medicine
DX: E11.69 Type 2 diabetes mellitus with other specified complication (principal)
CPT/HCPCS: 36415; 80061; 80076; 83036

== ENCOUNTER 2024-12-10 12:37 | Outpatient (REF) | payer OTHER, SELFPAY ==
--- NOTE | ~2024-12-10 | US_ITS ---
CLINICAL HISTORY: N28.9 - Disorder of kidney and ureter, unspecified US Renal Comparison: None Findings: Right kidney : 30.1 cm length. Diffuse cystic replacement Left kidney: normal in size and echotexture, 12.7 cm length. No hydronephrosis of either kidney. Normal color Doppler IMPRESSION: Diffuse cystic replacement and enlargement of the right kidney. Left kidney appears within normal limits. This document has been electronically signed by: Timi Nieves MD on 12/11/2024 13:06:36
== END 2024-12-10 12:38 | disposition home or self-care (01) ==
LOC: HO.US 12:37
PROVIDERS: PCP Family Medicine; Visit Provider Nurse Practitioner Family
DX: N28.9 Disorder of kidney and ureter, unspecified (principal); N28.89 Other specified disorders of kidney and ureter
CPT/HCPCS: 76775

== ENCOUNTER → 2024-12-10 12:39 | Outpatient (BNV) | payer OTHER, SELFPAY | PROVIDERS: PCP Family Medicine; Visit Provider Radiology Vascular & Interventional Radiology | DX: N28.9 Disorder of kidney and ureter, unspecified (principal) | CPT/HCPCS: 76775 ==

== ENCOUNTER 2025-04-15 10:27 | Outpatient (REF) | payer OTHER, SELFPAY ==
--- NOTE | ~2025-04-15 | XR_ITS ---
EXAMINATION: XR KNEE, RIGHT CLINICAL INFORMATION: bilateral knee pain, fell few months ago COMPARISON: None available. TECHNIQUE: Four views of the right knee. FINDINGS: No fracture, dislocation, or suspicious bone lesion. Normal bone mineralization. Normal alignment. Minimal osteoarthrosis noted in the medial and patellofemoral compartments. Minimal spurring of the tibial spines. No significant joint effusion. Soft tissues appear normal. XR/XR knee RT 3V IMPRESSION: 1. No acute bony abnormalities. 2. Minimal osteoarthrosis medial and patellofemoral compartments. Electronically signed by: Srikanth Don MD 04/15/2025 01:23 PM EDT
--- NOTE | ~2025-04-15 | XR_ITS ---
EXAMINATION: XR KNEE, LEFT CLINICAL INFORMATION: bilateral knee pain, left worse than right, fell few months ago COMPARISON: None available. TECHNIQUE: Four views of the left knee. FINDINGS: No fracture, dislocation, or suspicious bone lesion. Normal bone mineralization. Normal alignment. Minimal osteoarthrosis noted in the medial and patellofemoral compartments. Minimal spurring of the tibial spines. No significant joint effusion. Soft tissues appear normal. XR/XR knee LT 3V IMPRESSION: 1. No acute bony abnormalities. 2. Minimal osteoarthrosis medial and patellofemoral compartments. Electronically signed by: Srikanth Don MD 04/15/2025 01:24 PM EDT
--- OUTSIDE RECORDS SUMMARY | 2025-04-15 11:02 | XMS_ITS | Encounter Summary ---
Author Organization [employer] Address [address] [facility] [address] [place] [address] Care Team Providers Care Manual Winder Name Role Phone Mariluz Trevino MD Primary Care Provider [phone] Samy Baez PharmD Unavailable [phone] Encounter Details Date Type Department Care Team (Late st Contact Info) Description 05/10/2024 Abstract [facility] [address] [place], [place] [phone] Mariluz Trevino MD [address] [place], [place] [phone] Social History Tobacco Use Types Packs/Day Years Used Date Smoking Tobacco: Never Smokeless Tobacco: Never Depression Answer Date Recorded Patient Health Questionnaire-9 Score 0 11/08/2023 Patient Health Questionnaire-9 Score 0 11/08/2023 Last PHQ-9: Questionnaire Data Not on file 1 01/09/2023 Housing Stability Answer Date Recorded What is your housing situation today? I have caio simms 02/07/[address] you li ve. Do you have problems with any of the following? I am not sure 02/07/2024 Food Insecurity Answer Date Recorded Within the past 12 months, y ou worried that your food would run out before you got money to buy more: Never True 11/08/2023 Within the past 12 months,th e food you bought just didn't last and you didn't have enough money to get more: Never True 10/2023 Transportation Answer Date Recorded In the past 12 months, has l ack of transportation kept you from medical appts, meetings, work or from getting things needed for daily living? No 11/08/2023 Utilities Answer Date Recorded In the past 12 months, has t he electric, gas, oil or water company threatened to shut off services in your home? No 11/08/2023 Depression Answer Date Recorded Patient Health Questionnaire-2 Score 0 11/08/2023 Comments Unknown Sex and Gender Information Value Date Recorded Sex Assigned at Female 09/27/2022 10:16 AM EDT Legal Sex Female 10:16 AM EDT Gender Identity Female 09/27/2022 10:16 AM EDT Sexual Orientation Straight 09/27/2022 10 :16 AM EDT documented as of this encounter Plan of Treatment Upcoming Encounters Date Type Department Care Team (Late st Contact Info) Description 07/01/2025 9:00 AM EDT Medication Management [facility] [address] [place], [place] [phone] Samy Baez, Eulogio [address] [place] [address] documented as of this encounter Procedures Procedure Name Priority Date/Time Associated Diagnosis Comments COLONOSCOPY Routine 06/05/2019 documented in this encounter Results * Colonoscopy (06/05/2019) Colonoscopy Normal Normal 06/05/2019 Historical Provider HEALTH MAINTENANCE Final Result documented in this encounter Visit Diagnoses Not on filedocumented in this encounter Additional Health Concerns Assessment Noted Time PHQ-9 Depression Total Score: 0 11/08/20 23 1:24 PM EST documented as of this encounter Care Teams Manual Winder Relationship Specialty Start Date End Date Mariluz Trevino MD [address] [place] [address] [phone] PCP - General Family Medicine 11/09/12 Samy Baez, PharmD [address] [place] [address] [phone] Pharmacist Internal Medicine 07/20/24 documented as of this encounter
--- OUTSIDE RECORDS SUMMARY | 2025-04-15 11:02 | XMS_ITS | Encounter Summary ---
Author Organization [employer] Address [address] [facility] 7[address] [place] [address] Care Team Providers Care Loader Unloader Name Role Phone Mariluz Trevino MD Primary Care Provider [phone] Samy Baez PharmD Unavailable [phone] Encounter Details Date Type Department Care Team (Latest Contact Info) Description 01/11/2022 Abstract [facility] CONVERSIONS Dental, Provider, DDS Social History Tobacco Use Types Packs/Day Years Used Date Smoking Tobacco: Never Assessed Comments Unknown Sex and Gender Information Value Date Recorded Sex Assigned at Female 09/27/2022 10:16 AM EDT Legal Sex Female 10:16 AM EDT Gender Identity Female 09/27/2022 10:16 AM EDT Sexual Orientation Straight 09/27/2022 10 :16 AM EDT documented as of this encounter Plan of Treatment Upcoming Encounters Date Type Department Care Team ( st Contact Info) Description 07/01/2025 9:00 AM EDT Medication Management [facility] [address] [place] [address] Samy Baez, PharmD [address] [place] [address] documented as of this encounter Visit Diagnoses Not on filedocumented in this encounter Care Teams Loader Unloader Relationship Specialty Start Date End Date Mariluz Trevino MD [address] [place] [address] PCP - General Family Medicine 11/09/12 Samy Baez, PharmD [address] [place] [phone] Pharmacist Internal Medicine 07/20/24 documented as of this encounter
--- OUTSIDE RECORDS SUMMARY | 2025-04-15 11:02 | XMS_ITS | Encounter Summary ---
Author Organization [employer] Address [address] [facility] 7t [place] [address] Care Team Providers Care Hr Analyst Name Role Phone Mariluz Trevino MD Primary Care Provider [phone] Samy Baez PharmD Unavailable [phone] Encounter Details Date Type Department Care Team (Late st Contact Info) Description 01/24/2023 Orders Only [facility] MED & PEDS [address] [place], [place] [phone] Allyssa Jefferson LPN Social History Tobacco Use Types Packs/Day Years [...] Description 07/01/2025 9:00 AM EDT Medication Management [facility] MEDICINE [address] [place] [address] Samy Baez, PharmD [address] [place] [address] documented as of this encounter Visit Diagnoses Not on filedocumented in this encounter Care Teams Hr Analyst Relationship Specialty Start Date End Date Mariluz Trevino MD [address] [place] [address] PCP - General Family Medicine 11/09/12 BaezSamy PharmD [address] [place] [phone] Pharmacist Internal Medicine 07/20/24 documented as of this encounter
--- OUTSIDE RECORDS SUMMARY | 2025-04-15 11:02 | XMS_ITS | Encounter Summary ---
Author Organization [employer] Address [address] [facility] [address] [place] [address] Care Team Providers Care Events Manager Name Role Phone Mariluz Trevino MD Primary Care Provider [phone] Samy Baez PharmD Unavailable [phone] Encounter Details Date Type Department Care Team (Late st Contact Info) Description 02/21/2023 Orders Only [facility] MED [facility] PEDS [address] [place], [place] [phone] Allyssa Jefferson LPN Social History Tobacco Use [...] Description 07/01/2025 9:00 AM EDT Medication Management [facility] [address] [place] [address] Samy Baez, PharmD [address] [place] [address] documented as of this encounter Visit Diagnoses Not on filedocumented in this encounter Care Teams Events Manager Relationship Specialty Start Date End Date Mariluz Trevino MD [address] [place] [address] PCP - General Family Medicine 11/09/12 BaezSamy PharmD [address] [place] [phone] Pharmacist Internal Medicine 07/20/24 documented as of this encounter
--- OUTSIDE RECORDS SUMMARY | 2025-04-15 11:02 | XMS_ITS | Encounter Summary ---
Author Organization [employer] Address [address] [facility] [address] [place] [address] Care Team Providers Care Cotton Grader Name Role Phone Mariluz Trevino MD Primary Care Provider [phone] Samy Baez PharmD Unavailable [phone] Encounter Details Date Type Department Care Team (Latest Contact Info) Description 08/24/2019 Abstract [facility] CONVERSIONS Dental, Provider, DDS Social History Tobacco [...] Description 07/01/2025 9:00 AM EDT Medication Management [facility] MEDICINE [address] [place] [address] Samy Baez, PharmD [address] [place] [address] documented as of this encounter Visit Diagnoses Not on filedocumented in this encounter Care Teams Cotton Grader Relationship Specialty Start Date End Date Mariluz Trevino MD [address] [place] [address] PCP - General Family Medicine 11/09/12 Samy Baez, PharmD [address] [place] [phone] Pharmacist Internal Medicine 07/20/24 documented as of this encounter
--- OUTSIDE RECORDS SUMMARY | 2025-04-15 11:02 | XMS_ITS | Encounter Summary ---
Author Organization [employer] Address [address] [facility] [address] [place] [address] Care Team Providers Care Barrel Stave Inspector Name Role Phone Mariluz Trevino MD Primary Care Provider [phone] Samy Baez PharmD Unavailable [phone] Reason for Referral * Consultation (Routine) - Pending Review Specialty Diagnoses / Procedures Referred By Contac t Referred To Contact Pharmacy Diagnoses Type 2 diabetes mellitus with other specified complication, without long-term current use of insulin (CMS/HCC) Primary hypertension Mariluz Trevino MD [address] [place] [address] Phone: tel: fax: Referral ID Status Reason Start Date Expiration Date Visits Requested Visits Authorized [id number] Pending Review Consult and Treat 05/14/2024 05/14/2025 1 1 Encounter Details Date Type Department Care Team (Late st Contact Info) Description 05/14/2024 Orders Only [facility] [address] [place], [place] [phone] Mariluz Trevino MD [address] [place], [place] [phone] Type 2 diabetes mellitus with other specified complication, without long-term current use of insulin (CMS/HCC) (Primary Dx); Primary hypertension Social History Tobacco Use Types Packs/Day Years [...] Description 07/01/2025 9:00 AM EDT Medication Management [facility] [address] [place] [address] Samy Baez, PharmD [address] [place] [address] Scheduled Referrals Name Type Priority Associated Diagnoses Orde r Schedule Referral to Pharmacy CDTM Outpatient Referral Routine Type 2 diabetes mellitus with other specified complication, without long-term current use of insulin (CMS/HCC) Primary hypertension Ordered: 05/14/2024 documented as of this encounter Visit Diagnoses Diagnosis Type 2 diabetes mellitus with other specified complication, without long-term current use of insulin (CMS/HCC)- Primary Primary hypertension Unspecified essential hypertension documented in this encounter Additional Health Concerns Assessment Noted Time PHQ-9 Depression Total Score: 0 11/08/20 23 1:24 PM EST documented as of this encounter Care Teams Barrel Stave Inspector Relationship Specialty Start Date End Date Mariluz Trevino MD [address] [place] [address] PCP - General Family Medicine 11/09/12 Samy Baez, Eulogio [address] [place] [address] Pharmacist Internal Medicine 07/20/24 documented as of this encounter
--- OUTSIDE RECORDS SUMMARY | 2025-04-15 11:02 | XMS_ITS | Encounter Summary ---
Author Organization [employer] Address [address] [facility] 7t [place] [address] Care Team Providers Care Cardiac Nurse Practitioner Name Role Phone Mariluz Trevino MD Primary Care Provider [phone] Samy Baez PharmD Unavailable [phone] Encounter Details Date Type Department Care Team (Late Contact Info) Description 03/22/[address] [facility] MEDICINE [address] [place] [address] [phone] Mariluz Trevino MD [address] [place] [address] [phone] Type 2 diabetes mellitus with other specified complication, without long-term current use of insulin ([facility]) (Primary Dx); Acquired hypothyroidism; Dyslipidemia; Primary hypertension Social History Tobacco Use Types [...] Encounters Date Type Department Care Team (Late Contact Info) Description 07/01/2025 9:00 AM EDT Medication Management [facility] MEDICINE [address] [place] [address] [phone] Samy Baez, PharmD [address] [place], [place] [phone] Scheduled Orders Name Type Priority Associated Diagnoses Orde r Schedule Vitamin B12/Folate, Serum Panel Lab Routine Type 2 diabetes mellitus with other specified complication, without long-term current use of insulin ([facility]) Acquired hypothyroidism Dyslipidemia Primary hypertension Expected: 03/22/2023 (Approximate), Expires: 03/22/2024 Albumin, Random Urine W/Creatinine Lab Routine Type 2 diabetes mellitus with other specified complication, without long-term current use of insulin (CMS/HCC) Acquired hypothyroidism Dyslipidemia Primary hypertension Expected: 03/22/2023 (Approximate), Expires: 03/22/2024 Hemoglobin A1c Lab Routine Type 2 diabetes mellitus with other specified complication, without long-term current use of insulin ([facility]) Acquired hypothyroidism Dyslipidemia Primary hypertension Expected: 03/22/2023 (Approximate), Expires: 03/22/2024 Comprehensive Metabolic Panel Lab Routine Type 2 diabetes mellitus with other specified complication, without long-term current use of insulin ([facility]) Acquired hypothyroidism Dyslipidemia Primary hypertension Expected: 03/22/2023 (Approximate), Expires: 03/22/2024 Lipid Panel with Reflex to Direct LDL Lab Routine Type 2 diabetes mellitus with other specified complication, without long-term current use of insulin ([facility]) Acquired hypothyroidism Dyslipidemia Primary hypertension Expected: 03/22/2023 (Approximate), Expires: 03/22/2024 TSH W/Reflex to FT4 Lab Routine Type 2 diabetes mellitus with other specified complication, without long-term current use of insulin ([facility]) Acquired hypothyroidism Dyslipidemia Primary hypertension Expected: 03/22/2023 (Approximate), Expires: 03/22/2024 documented as of this encounter Visit Diagnoses Diagnosis Type 2 diabetes mellitus with other specified complication, without long-term current use of insulin ([facility])- Primary Acquired hypothyroidism Unspecified hypothyroidism Dyslipidemia Other and unspecified hyperlipidemia Primary hypertension Unspecified essential hypertension documented in this encounter Care Teams Cardiac Nurse Practitioner Relationship Specialty Start Date End Date Mariluz Trevino MD [address] [place] [address] PCP - General Family Medicine 11/09/12 Samy Baez PharmD [address] [place] [address] Pharmacist Internal Medicine 07/20/24 documented as of this encounter
--- OUTSIDE RECORDS SUMMARY | 2025-04-15 11:03 | XMS_ITS | Encounter Summary ---
Author Organization [employer] Address [address] [facility] 7[address] [place] [address] Care Team Providers Care Turpentine Distiller Name Role Phone Mariluz Trevino MD Primary Care Provider [phone] Samy Baez PharmD Unavailable [phone] Reason for Visit * Reason Onset Date Comments Appointment Request 02/06/2025 Encounter Details Date Type Department Care Team ([facility] st Contact Info) Description 02/06/2025 Telephone [facility] MEDICINE [address] [place], [place] [phone] Mariluz Trevino MD [address] [place], [place] [phone] Appointment Request Social History Tobacco Use Types Packs/Day Years Used Date Smoking Tobacco: Never Passive Smoke Exposure: Never Smokeless Tobacco: Never Depression Answer Date [...] AM EDT documented as of this encounter Miscellaneous Notes * Telephone Encounter - Lashonda Sanderson - 02/06/2025 3:13 PM EDT Tc from pt requesting reschedule 01/28 appt. Appt notes: RV med / dm2 / htn documented in this encounter Plan of Treatment Upcoming Encounters Date Type Department Care Team (Late st Contact Info) Description 07/01/2025 9:00 AM EDT Medication Management [facility] MEDICINE [address] [place] [address] Samy Baez PharmD [address] [place] [address] documented as of this encounter Goals Goal Patient Goal Type Associated Problems Recent Progress Patient-Stated? Author Blood Pressure < 140/90 Blood Pressure 140/86(2024 9:36 AM EDT) No Samy Baez, PharmElzbieta Hemoglobin A1c < 7 Result Component 7.4( 9:24 AM EDT) No Samy Baez PharmD documented as of this encounter Visit Diagnoses Not on filedocumented in this encounter Additional Health Concerns Assessment Noted Time PHQ-9 Depression Total Score: 0 11/08/20 23 1:24 PM EST documented as of this encounter Care Teams Turpentine Distiller Relationship Specialty Start Date End Date Mariluz Trevino MD [address] [place] [address] PCP - General Family Medicine 11/09/12 Samy Baez, PharmD [address] [place] [address] [place] [address] Pharmacist Internal Medicine 07/20/24 documented as of this encounter
--- OUTSIDE RECORDS SUMMARY | 2025-04-15 11:03 | XMS_ITS | Encounter Summary ---
Author Organization [employer] Address [address] [facility] 7t [place] [address] Care Team Providers Care Route Sales Driver Name Role Phone Mariluz Trevino MD Primary Care Provider [phone] Samy Baez PharmD Unavailable [phone] Encounter Details Date Type Department Care Team (Latest Contact Info) Description 04/15/2025 Travel Social History Tobacco Use Types Packs/Day Years Used Date Smoking Tobacco: Never Passive Smoke Exposure: Never Smokeless Tobacco: Never Depression Answer Date Recorded Patient Health Questionnaire-9 Score 0 04/15/2025 Patient Health Questionnaire-9 Score 0 04/15/2025 Last PHQ-9: Questionnaire Data Not on file 0 04/15/2025 Housing Stability Answer Date Recorded What is your housing situation today? I have caio simms 04/08/[address] you li ve. Do you have problems with any of the following? None of the above 04/08/2025 Food Insecurity Answer Date Recorded Within the past 12 months, y ou worried that your food would run out before you got money to buy more: Never True 04/08/2025 Within the past 12 months,th e food you bought just didn't last and you didn't have enough money to get more: Never True 10/2025 Transportation Answer Date Recorded In the past 12 months, has l ack of transportation kept you from medical appts, meetings, work or from getting things needed for daily living? No 04/08/2025 Utilities Answer Date Recorded In the past 12 months, has t he electric, gas, oil or water company threatened to shut off services in your home? No 04/08/2025 Depression Answer Date Recorded Patient Health Questionnaire-2 Score 0 04/15/2025 Internet Access Answer Date Recorded Internet Access Q1 Yes 04/08/2025 Internet Access Q2 Not on file 04/08/2025 Comments Unknown Sex and Gender Information Value Date Recorded Sex Assigned at Female 09/27/2022 10:16 AM EDT Legal Sex Female 10:16 AM EDT Gender Identity Female 09/27/2022 10:16 AM EDT Sexual Orientation Straight 09/27/2022 10 :16 AM EDT documented as of this encounter Functional Status * Over the past 2 weeks, how often have you been bothered by any of the following problems? Question Answer Date of Assessment Author Patient Health Questionnaire -2 Score 0 04/15/2025 9:36 AM Miroslava Epperson [place] * Little interest or pleasure in doing things Answer Date of Assessment Author Not at all 04/15/2025 9:36 AM Love Epperson [place] * Feeling down, depressed, or hopeless Answer Date of Assessment Author Not at all 04/15/2025 9:36 AM Love Epperson [place] * Trouble falling or staying asleep, or sleeping too much Answer Date of Assessment Author Not at all 04/15/2025 9:36 AM Love Epperson MA * Feeling tired or having little energy Answer Date of Assessment Author Not at all 04/15/2025 9:36 AM Love Epperson [place] * Poor appetite or overeating Answer Date of Assessment Author Not at all 04/15/2025 9:36 AM Love Epperson MA * Feeling bad about yourself - or that you are a failure or have let yourself or your family down Answer Date of Assessment Author Not at all 04/15/2025 9:36 AM Love Epperson [place] * Trouble concentrating on things, such as reading the newspaper or watching television Answer Date of Assessment Author Not at all 04/15/2025 9:36 AM Love Epperson [place] * Moving or speaking so slowly that other people could have noticed? Or the opposite - being so fidgety or restless that you have been moving around a lot more than usual. Answer Date of Assessment Author Not at all 04/15/2025 9:36 AM Love Epperson MA * Thoughts that you would be better off or hurting yourself in some way Answer Date of Assessment Author Not at all 04/15/2025 9:36 AM Love Epperson MA * Patient Health Questionnaire-9 Score Answer Date of Assessment Author 0 04/15/2025 9:36 AM Love Epperson MA * Over the last 2 weeks, how often have you been bothered by any of the following problems? Question Answer Date of Assessment Author Feeling nervous, anxious, or on edge 0 04/15/2025 9:36 AM EDT Miroslava Robert MA Not being able to stop or control worrying 0 04/15/2025 9:36 AM GARYT Miroslava Robert MA Worrying too much about different things 0 04/15/2025 9:36 AM EDT Miroslava Robert MA Trouble relaxing 0 04/15/2025 9:36 AM EDT Love Gordon MA Being so restless that it is hard to sit still 0 04/15/2025 9:36 AM GARYT Miroslava Robert MA Becoming easily annoyed or irritable 0 04/15/2025 9:36 AM GARYT Miroslava Robert MA Feeling afraid as if somethi ng awful might happen 0 04/15/2025 9:36 AM GARYT Miroslava Robert MA MARIELOS-7 Total Score 0 04/15/2025 9:36 AM Love Epperson MA documented as of this encounter Plan of Treatment Upcoming Encounters Date Type Department Care Team (Late st Contact Info) Description 07/01/2025 9:00 AM EDT Medication Management [facility] MEDICINE [address] [place] [address] Samy Baez PharmD [address] [place] [address] documented as of this encounter Goals Goal Patient Goal Type Associated Problems Recent Progress Patient-Stated? Author Blood Pressure < 140/90 Blood Pressure 140/86(2024 9:36 AM EDT) No Samy Baez PharmD Hemoglobin A1c < 7 Result Component 7.4( 9:24 AM EDT) No Baez, Samy, PharmD documented as of this encounter Visit Diagnoses Not on filedocumented in this encounter Additional Health Concerns Assessment Noted Time PHQ-9 Depression Total Score: 0 04/15/20 25 9:36 AM EDT documented as of this encounter Care Teams Route Sales Driver Relationship Specialty Start Date End Date Mariluz Trevino MD [address] [place] [address] PCP - General Family Medicine 11/09/12 Samy Baez, PharmD [address] [place] [address] Pharmacist Internal Medicine 07/20/24 documented as of this encounter
--- OUTSIDE RECORDS SUMMARY | 2025-04-15 11:03 | XMS_ITS | Encounter Summary ---
Author Organization [employer] Address [address] [facility] [address] [place] [address] Care Team Providers Care Radio Script Writer Name Role Phone Marliuz Trevino MD Primary Care Provider [phone] Samy Baez PharmD Unavailable Reason for Referral * Consultation (Routine) - Pending Review Specialty Diagnoses / Procedures Referred By Contac t Referred To Contact Pharmacy Diagnoses Type 2 diabetes mellitus with other specified complication, without long-term current use of insulin (CMS/HCC) Primary hypertension Mariluz Trevino MD [address] [place] [address] Phone: tel: fax: Referral ID Status Reason Start Date Expiration Date Visits Requested Visits Authorized [id number] Pending Review Consult and Treat 4 10/09/2025 6 6 Encounter Details Date Type Department Care Team (Late st Contact Info) Description 10/09/2024 Orders Only [facility] MEDICINE [address] [place], [place] [phone] Mariluz Trevino MD [address] [place], [place] [phone] Type 2 diabetes mellitus with other specified [...] Description 07/01/2025 9:00 AM EDT Medication Management [facility] MEDICINE [address] [place] [address] Samy Baez, PharmD [address] [place] [address] Scheduled Referrals Name Type Priority Associated Diagnoses Orde r Schedule Referral to Pharmacy CDTM Outpatient Referral Routine Type 2 diabetes mellitus with other specified complication, without long-term current use of insulin ([facility]) Primary hypertension Ordered: 10/09/2024 documented as of this encounter Goals Goal Patient Goal Type Associated Problems Recent Progress Patient-Stated? Author Blood Pressure < 140/90 Blood Pressure 140/86(2024 9:36 AM EDT) No Samy Baez, PharmD Hemoglobin A1c < 7 Result Component 7.4( 5 9:24 AM EDT) No Samy Baez PharmD documented as of this encounter Visit Diagnoses Diagnosis Type 2 diabetes mellitus with other specified complication, without long-term current use of insulin ([facility])- Primary Primary hypertension Unspecified essential hypertension documented in this encounter Additional Health Concerns Assessment Noted Time PHQ-9 Depression Total Score: 0 11/08/20 23 1:24 PM EST documented as of this encounter Care Teams Radio Script Writer Relationship Specialty Start Date End Date Mariluz Trevino MD [address] [place] [address] PCP - General Family Medicine 11/09/12 Samy Baez, Eulogio [address] [place] [id number] Pharmacist Internal Medicine 07/20/24 documented as of this encounter
--- OUTSIDE RECORDS SUMMARY | 2025-04-15 11:03 | XMS_ITS | Clinical Summary ---
Author Organization [employer] Address [address] [place] [address] Care Team Providers Care Director Data Name Role Phone Mariluz Trevino MD Primary Care Provider [phone] Samy Baez PharmD Unavailable [phone] Allergies No known active allergies Medications Blood Glucose Monitoring Suppl (FreeStyle Lite) w/Device kit 1 Dose in the morning. 1 kit 1 02/07/20 24 Active atorvastatin (Lipitor) 10 MG tablet Take 1 tablet (10 mg) by mouth Once per day. 30 tablet 11 08/20/20 24 025 Active cholecalcifero l (Vitamin D-3) 25 MCG (1000 UT) tablet Take 1 tablet (25 mcg) by mouth Once per day. 90 tablet 3 08/26/20 24 Active Calcium + Vitamin D3 600-5 MG-MCG tablet TAKE 1 TABLET BY MOUTH TWICE DAILY IN THE MORNING AND IN THE EVENING 180 tablet 3 10/31/20 24 Active aspirin (Aspirin Adult Low Dose) 81 MG EC tabletIndicati ons:Type 2 diabetes mellitus with other specified complication, without long-term current use of insulin (CMS/HCC) Take 1 tablet by mouth daily 90 tablet 1 11/05/20 24 Active losartan (Cozaar) 25 MG tablet TAKE 1 TABLET BY MOUTH EVERY MORNING 90 tablet 1 11/22/20 24 Active metFORMIN XR (Glucophage-XR ) 500 MG 24 hr tabletIndicati ons:Type 2 diabetes mellitus with hyperglycemia, with long-term current use of insulin (CMS/HCC) TAKE 2 TABLETS BY MOUTH TWICE DAILY IN THE MORNING AND EVENING 360 tablet 1 11/22/20 24 Active levothyroxine (Synthroid, Levoxyl) 125 MCG tablet TAKE 1 TABLET BY MOUTH EVERY MORNING 90 tablet 1 11/22/20 24 Active gabapentin (Neurontin) 100 MG capsuleIndicat ions:Neuropath ic pain TAKE 1 CAPSULE BY MOUTH TWICE DAILY IN THE MORNING AND AT BEDTIME 60 capsule 5 01/31/20 25 Active pioglitazone (Actos) 45 MG tabletIndicati ons:Type 2 diabetes mellitus with other specified complication, without long-term current use of insulin (CMS/HCC) TAKE 1 TABLET BY MOUTH EVERY MORNING 90 tablet 1 02/28/20 25 Active glucose blood (FREESTYLE LITE) test stripIndicatio ns:Type 2 diabetes mellitus with other specified complication, without long-term current use of insulin (CMS/HCC) Use to check blood sugar once daily 50 each 11 04/01/20 25 Active FreeStyle lancetsIndicat ions:Type 2 diabetes mellitus with other specified complication, without long-term current use of insulin (CMS/HCC) 1 each by Other route Once per day. 100 each 3 04/01/20 25 Active Tirzepatide (Mounjaro) 5 MG/0.5ML solution auto-injectorI ndications:Typ e 2 diabetes mellitus with other specified complication, without long-term current use of insulin (CMS/HCC) Inject 5 mg under the skin 1 (one) time per week. 2 mL 04/01/20 25 Active FreeStyle lancets 1 each by Other route in the morning. Check blood glucose 100 each 02/07/20 24 025 Discontinued(Re order (will not trigger notification to Pharmacy)) FREESTYLE LITE test strip Check blood glucose 100 each 02/07/20 24 025 Discontinued(Re order (will not trigger notification to Pharmacy)) Semaglutide, 2 MG/DOSE, (Ozempic, 2 MG/DOSE,) 8 MG/3ML solution pen-injectorIn dications:Type 2 diabetes mellitus with other specified complication, without long-term current use of insulin (CMS/[facility]) Inject 0.75 mL (2 mg) under the skin 1 (one) time per week. 3 mL 5 11/26/20 24 025 Discontinued(Al ternate therapy) Active Problems Problem Noted Date Diagnosed Date Metabolic dysfunction-associ ated steatotic liver disease (MASLD) 08/19/2024 Assessment & Plan (08/19/2024 7:00 AM EDT): - CT scan in Oct 2023 showed hepatic steatosis - Last liver test: 08/13/24 - FIB4 index 0.75, cirrhosis less likely - Last US / elastography - not ordered since low FIB4 index - GI: [facility] seen for colonoscopy only - continue working on lifestyle modifications - continue surveillance study (currently periodic lab, consider when FIB4 index > 1.44 Disorder of kidney and ureter 05/29/2018 Vitamin D deficiency 05/29/2018 Assessment & Plan (08/26/2024 11:25 AM EDT): - currently vitamin D and calcium supplementation - will check lab Hydroureter 04/05/2017 Assessment & Plan (08/25/2023 8:23 AM EDT): - Previously seen by Urologist, Dr. Winchester, pt requests a new referral to a new urologist - Refer to Urology for follow-up evaluation and a h/o Hydroureter - Most recent renal US 04/10/19 showed an enlarged R kidney essentially replaced with cysts Non-functioning kidney 04/05/2017 Assessment & Plan (05/08/2024 12:23 PM EDT): - following with [facility] urology, last seen on 11/07/23 - right side is replaced with cysts and non-functional - compensated by left kidney - protect left kidney - consider SGLT-2 inhibitor Assessment & Plan (02/07/2024 5:44 AM EDT): - following with [facility] urology, last seen on 11/07/23 - right side is replaced with cysts and non-functional - compensated by left kidney - protect left kidney Assessment & Plan (11/13/2023 5:54 PM EST): - following with [facility] urology, last seen on 10/14/23 - right side is replaced with cysts and non-functional - compensated by left kidney - protect left kidney Assessment & Plan (08/25/2023 8:23 AM EDT): - right side is likely non-functional per urologist - compensated by left kidney Type 2 diabetes mellitus 04/05/2017 Assessment & Plan (08/26/2024 11:20 AM EDT): - A1C 8.0% improving, with some hypoglycemic episodes. - Continue metformin (ER)1000 mg twice daily. - Continue Actos 45 mg daily. Plan to taper off. - Continue Semaglutide 1 mg weekly. Consider increasing as we taper down Actos. - Consider SGLT-2 inhibitor, and/or increase semaglutide and lower pioglitazone - Treatment Hx: Switched dulaglutide to semaglutide in April 2024 - Improve adherence with medications and SMBG - Work on lifestyle modifications. DM Health Care Maintenance: - Last eye exam: 01/09/24 [facility]. No diabetes mellitus retniopathy. 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 - Last foot exam: 08/23/23 High-risk. Impaired sensation. - Last microalbumin test: 08/13/24 UACR 23.2, known microalbuminuria, improved from 61.8 in 2022 - Last lipid profile: 08/13/24 - Last dental exam: Assessment & Plan (05/08/2024 12:26 PM EDT): - A1C 10.7%, worsening glycemic control, 9.8% on 02/07/24 - Continue metformin (ER)1000 mg twice daily. - Continue Actos 45 mg daily. Plan to taper off. - Increased Trulicity 4.5 mg wkly, but she has not been able to get it for last 1 month due to shortage. - Switch to Semaglutide 1 mg weekly - Consider SGLT-2 inhibitor - Improve adherence with medbox. - Work on lifestyle modifications. DM Health Care Maintenance: - Last eye exam: 01/09/24 [facility]. No diabetes mellitus retniopathy. 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 - Last foot exam: 08/23/23 High-risk. Impaired sensation. - Last microalbumin test: 08/23/23 UACR 61.8 microalbuminuria - Last lipid profile: 08/23/23 TC 163; TG 208; HDL 36; LDL 86 - Last dental exam: Assessment & Plan (02/08/2024 10:57 PM EDT): - A1C 9.8% on 02/07/24, no improvement from 9.7% on 11/08/23 - Continue metformin (ER)1000 mg twice daily. - Continue Actos 45 mg daily. - Increase Trulicity 4.5 mg wkly - Consider SGLT-2 inhibitor - Improve adherence with medbox. - Work on lifestyle modifications. DM Health Care Maintenance: - Last eye exam: 09/04/19. Mild nonproliferative diabetic retinopathy of R eye. No retinopathy on L eye. Sent referral to update eye exam. - Last foot exam: 08/23/23 High-risk. Impaired sensation. - Last microalbumin test: 08/23/23 UACR 61.8 microalbuminuria - Last lipid profile: 08/23/23 TC 163; TG 208; HDL 36; LDL 86 - Last dental exam: 2014 Immunizations: - Influenza - she declined for this season - Pneumovax Oct 2015 - Hep B - Completed Assessment & Plan (11/13/2023 5:52 PM EST): - A1C 9.7% on 11/08/23, no improvement from 9.6% on 07/30/23 - Continue metformin (ER)1000 mg twice daily. - Continue Actos 45 mg daily. - Increase Trulicity to 3.0 mg wkly - Consider SGLT-2 inhibitor - Improve adherence with medbox. - Work on lifestyle modifications. DM Health Care Maintenance: - Last eye exam: 09/04/19. Mild nonproliferative diabetic retinopathy of R eye. No retinopathy on L eye. Sent referral to update eye exam. - Last foot exam: 08/23/23 High-risk. Impaired sensation. - Last microalbumin test: 08/23/23 UACR 61.8 microalbuminuria - Last lipid profile: 08/23/23 TC 163; TG 208; HDL 36; LDL 86 - Last dental exam: 2014 Immunizations: - Influenza - she declined for this season - Pneumovax - Oct 2015 - Hep B - Completed Assessment & Plan (08/25/2023 8:24 AM EDT): - A1C 9.6% on 07/30/23, increased from 6.3% in March 2021. - Continue metformin (ER)1000 mg twice daily. - Continue Actos 45 mg daily. - Increase Trulicity to 1.5 mg wkly - Consider SGLT-2 inhibitor - Improve adherence with medbox. - Work on lifestyle modifications. DM Health Care Maintenance: - Last eye exam: 09/04/19. Mild nonproliferative diabetic retinopathy of R eye. No retinopathy on L eye. Sent referral to update eye exam. - Last foot exam: 08/23/23 High-risk. Impaired sensation. - Last microalbumin test: 09/23/20 UACR 45 microalbuminuria - Last lipid profile: 09/23/20, marked hypertriglyceridemia - Last dental exam: 2014 Immunizations: - Influenza - Dec 2014, she declined for this season - Pneumovax - Oct 2015 - Hep B - Completed Hypertension 10/30/2015 Assessment & Plan (08/19/2024 7:27 AM EDT): -Goal BP < 140/90 per JNC-8 and < 130/80 per ACC/AHA guideline (Treatment threshold >= 130/80) -BP borderline, questionable medication adherence and on-going pain -Continue working on lifestyle modifications -Recommended self-monitoring BP. -Continue current medications: Losartan 25 mg daily -Microalbuminuria and non-functioning R kidney -Follow up in 3 mo, sooner if any problem arises Assessment & Plan (05/08/2024 12:23 PM EDT): -Goal BP < 140/90 per JNC-8 and < 130/80 per ACC/AHA guideline (Treatment threshold >= 130/80) -BP borderline, questionable medication adherence and on-going pain -Continue working on lifestyle modifications -Recommended self-monitoring BP. -Continue current medications: Losartan 25 mg daily -Microalbuminuria and non-functioning R kidney -Follow up in 3 mo, sooner if any problem arises Assessment & Plan (02/08/2024 10:44 PM EDT): -Goal BP < 140/90 per JNC-8 and < 130/80 per ACC/AHA guideline (Treatment threshold >= 130/80) -BP not at goal, questionable medication adherence and on-going pain -Continue working on lifestyle modifications -Recommended self-monitoring BP. -Continue current medications: Losartan 25 mg daily -Microalbuminuria and non-functioning R kidney -Follow up in 3 mo, sooner if any problem arises Assessment & Plan (11/13/2023 5:55 PM EST): -Goal BP < 140/90 per JNC-8 and < 130/80 per ACC/AHA guideline (Treatment threshold >= 130/80) -BP not at goal, questionable medication adherence and on-going pain -Continue working on lifestyle modifications -Recommended self-monitoring BP. -Continue current medications: Losartan 25 mg daily -Microalbuminuria and non-functioning R kidney -Follow up in 3 mo, sooner if any problem arises Assessment & Plan (08/25/2023 8:21 AM EDT): -Goal BP < 140/90 per JNC-8 and < 130/80 per ACC/AHA guideline (Treatment threshold >= 130/80) -BP not at goal, questionable medication adherence and on-going pain -Continue working on lifestyle modifications -Recommended self-monitoring BP. -Continue current medications: Losartan 25 mg daily -Treatment Hx: May need to consider about pt's severe hydroureter -Follow up in 3 mo, sooner if any problem arises Hypothyroidism 10/30/2015 Assessment & Plan (08/19/2024 7:27 AM EDT): - Most recent thyroid function test: 08/13/24 TSH 3.26 - Current replacement: levothyroxine 125 mcg daily - Emphasized the importance of adherence and being honest about her adherence for safety. Assessment & Plan (05/08/2024 5:56 AM EDT): - Most recent thyroid function test: 08/23/23 TSH 2.77 - Current replacement: levothyroxine 125 mcg daily - Emphasized the importance of adherence and being honest about her adherence for safety. Assessment & Plan (02/08/2024 10:58 PM EDT): - Most recent thyroid function test: 08/23/23 TSH 2.77 - Current replacement: levothyroxine 125 mcg daily - Emphasized the importance of adherence and being honest about her adherence for safety. Assessment & Plan (11/13/2023 5:52 PM EST): - Most recent thyroid function test: 08/23/23 TSH 2.77 - Current replacement: levothyroxine 125 mcg daily - Emphasized the importance of adherence and being honest about her adherence for safety. Assessment & Plan (08/23/2023 12:11 PM EDT): Most recent thyroid function test: 04/20/21 TSH 2.53 - Current replacement: levothyroxine 125 mcg daily - Emphasized the importance of adherence and being honest about her adherence for safety. Dyslipidemia 04/29/2015 Assessment & Plan (08/20/2024 12:22 PM EDT): - Last lipid profile: 08/13/24, elevated Triglyceride and low HDL. - Current medication: pravastatin 80 mg at bedtime, will switch to atorvastatin and increase its intensity as tolerated - Treatment history: Previously taking fish oil, but patient reported nausea and it was stopped - Emphasized the importance of lifestyle modification. - Repeat fasting lipid profile in and hepatic panel in 3 mo. Assessment & Plan (05/08/2024 5:57 AM EDT): - Last lipid profile: 08/23/23 TC 163; TG 208; HDL 36; LDL 86 - Current medication: pravastatin 80 mg qhs, Pt is prescribed fish oil for hypertriglyceridemia, pt reports nausea with fish oil, will hold at this time - According to 2013 ACC/AHA guideline, 10-year ASCVD risk is 6 % and moderate -intensity statin therapy is recommended. - According to ATPIII guideline, pt's goal LDL is < 100. - Emphasized the importance of lifestyle modification. - Repeat fasting lipid profile in 1 year. Assessment & Plan (02/07/2024 5:43 AM EDT): - Last lipid profile: 08/23/23 TC 163; TG 208; HDL 36; LDL 86 - Current medication: pravastatin 80 mg qhs, Pt is prescribed fish oil for hypertriglyceridemia, pt reports nausea with fish oil, will hold at this time - According to 2013 ACC/AHA guideline, 10-year ASCVD risk is 6 % and moderate -intensity statin therapy is recommended. - According to ATPIII guideline, pt's goal LDL is < 100. - Emphasized the importance of lifestyle modification. - Repeat fasting lipid profile in 1 year. Assessment & Plan (11/13/2023 5:53 PM EST): - Last lipid profile: 08/23/23 TC 163; TG 208; HDL 36; LDL 86 - Current medication: pravastatin 80 mg qhs, Pt is prescribed fish oil for hypertriglyceridemia, pt reports nausea with fish oil, will hold at this time - According to 2013 ACC/AHA guideline, 10-year ASCVD risk is 6 % and moderate -intensity statin therapy is recommended. - According to ATPIII guideline, pt's goal LDL is < 100. - Emphasized the importance of lifestyle modification. - Repeat fasting lipid profile in 1 year. Assessment & Plan (08/25/2023 8:25 AM EDT): - Last lipid profile: 04/20/21 Total Cholesterol 181, TG 241, HDL 47, LDL 97 - Current medication: pravastatin 80 mg qhs, Pt is prescribed fish oil for hypertriglyceridemia, pt reports nausea with fish oil, will hold at this time - According to 2013 ACC/AHA guideline, 10-year ASCVD risk is 6 % and moderate -intensity statin therapy is recommended. - According to ATPIII guideline, pt's goal LDL is < 100. - Emphasized the importance of lifestyle modification. - Repeat fasting lipid profile in 1 year. Resolved Problems Problem Noted Date Diagnosed Date Resolved Date Left upper quadrant pain 08/23/202309/2024 Assessment & Plan (02/08/2024 11:02 PM EDT): - h/o Hydroureter - Improved from last visit. Will continue to monitor. Assessment & Plan (08/25/2023 8:19 AM EDT): - h/o Hydroureter - physical exam shows swelling and tenderness - will evaluate with a CT Scan History of 12/10/2013 023 Encounters Date Type Department Care Team Description 04/15/2025 9:30 AM EDT Office Visit [address] [phone] Mariluz Trevino MD Routine general medical examination at a health care facility (Primary Dx); Primary hypertension; Dyslipidemia; Vitamin D deficiency; Type 2 diabetes mellitus with other specified complication, without long-term current use of insulin (CMS/HCC); Acquired hypothyroidism; Metabolic dysfunction-associat ed steatotic liver disease (MASLD); Non-functioning kidney; Hydroureter; Disorder of kidney and ureter; Chronic pain of both knees 04/15/2025 Travel 04/12/[address] [address] Mariluz Trevino MD Chart Prep 04/08/2025 Patient Outreach [facility] [address] [place], [place] [phone] Mariluz Trevino MD Pre-visit Planning (SDOH negative, Tobacco screening negative. ) 04/01/2025 Travel 03/01/[address] [address] Mariluz Trevino MD 02/27/[address] [address] Mariluz Trevino MD Type 2 diabetes mellitus with other specified complication, without long-term current use of insulin ([facility]/HCC) 02/06/[address] [address] Mariluz Trevino MD Appointment Request 01/30/[address] [phone] Mariluz Trevino MD Neuropathic pain 01/28/[address] [phone] Mariluz Trevino MD No Show 01/25/2025 Travel 01/23/[address] [phone] Love Robert MA chart prep from Last 3 Months Immunizations Immunization Administration Dates Next Due Hep B, adult 08/10/2010,05/18/2009,05/12/2009 Influenza injectable quadriv alent preservative free 01/23/2015 Influenza, Split (incl. yovany fied surface antigen) 12/10/2013 MMR 05/27/2000 Moderna Covid-19 Vaccine 12+ 12/11/2021,02/21/20 21,01/23/2021 Pneumococcal Polysaccharide PPSV23 10/30/2015 TD (adult), 2 Lf tetanus tox oid, preservative free, adsorbed 12/30/2003 Tdap 12/10/2013 Varicella 04/28/2000 Social History Tobacco Use Types Packs/Day Years Used Date Smoking Tobacco: Never Passive Smoke Exposure: Never Smokeless Tobacco: Never Tobacco Cessation:Counseling Given: Not Answered Depression Answer Date Recorded Patient Health Questionnaire-9 Score 0 04/15/2025 Patient Health Questionnaire-9 Score 0 04/15/2025 Last PHQ-9: Questionnaire Data Not on file 0 04/15/2025 Housing Stability Answer Date Recorded What is your housing situation today? I have caio demi 04/08/[address] you li [...] Orientation Straight 09/27/2022 10 :16 AM EDT Last Filed Vital Signs Vital Sign Reading Time Taken Comments Blood Pressure 140/86 04/15/2025 9:36 AM EDT Pulse 80 04/15/2025 9:36 AM EDT Temperature 36.2 ??C (97.1 ??F) 04/15/2025 9:36 AM ED T Respiratory Rate 16 04/15/2025 9:36 AM EDT Oxygen Saturation 99% 08/20/2024 10:16 AM EDT Inhaled Oxygen Concentration - - Weight 82.7 kg (182 lb 6.4 oz) 04/15/2025 9:36 A M EDT Height 164.1 cm (5' 4.61 ) 04/15/2025 9:36 AM E DT Body Mass Index 30.72 04/15/2025 9:36 AM EDT Plan of Treatment Upcoming Encounters Date Type Department Care Team (Late st Contact Info) Description 07/01/2025 9:00 AM EDT Medication Management [facility] [address] [place] [address] Samy Baez, PharmD [address] [place], [place] [phone] Health Maintenance Due Date Last Done Comments CT Colonography 1969 FIT DNA/Cologuard 1969 FIT 1969 FOBT 1969 HIV Screening 1969 Sigmoidoscopy 1969 Hepatitis C Screening 1987 Hepatitis A Vaccines (1 of 2 - Risk 2-dose series) 1988 Pap Smear 1990 HPV/Cotest 1999 Hepatitis B Vaccines (3 of 3 - 19+ 3-dose series) 10/05/2010 08/10/2010, 05/18/2009, 05/12/2009 Pneumococcal Vaccine: 50+ Years (2 of 2 - PCV) 10/30/2016 10/30/2015 Zoster Vaccines (1 of 2) 2019 Dental Oral Exam 07/12/2022 01/11/2022, , 06/28/2017, Additional history exists Dental Prophylaxis 07/12/2022 01/11/2022, 0 08/24/2019, 01/22/2019, Additional history exists Dental X-Ray: Full Mouth 08/25/2022 08/24/2019, 11/29 Dental X-Ray: Bitewings 01/12/2023 01/11/20 22, 08/24/2019, 07/21/2018, Additional history exists DTaP/Tdap/Td Vaccines (2 - Td or Tdap) 12/10/2023 12/10/2013, 12/30/2003 Colonoscopy 06/05/2024 06/05/2019 Colorectal Cancer Screening 06/05/2024 COVID-19 Vaccine ( season) 2024 12/11/2021, 02/20/2021, 01/23/2021 Influenza Vaccine (#1) 2024 01/23/2015, 2013 Diabetes: Foot Exam 11/08/2024 11/08/2023, 11/08/2023, 11/08/2023, Additional history exists Eye Exam 01/09/2025 01/09/2024 Alcohol/Substance Use Screening 05/08/2025 05/08/2024 Diabetes: Hemoglobin A1C 07/02/2025 025, 11/19/2024, 08/20/2024, Additional history exists Diabetes: Urine Protein Screening 08/13/2025 08/13/2024, 08/23/2023, 09/23/2020 Lipid Panel 11/19/2025 11/19/2024, 07/29, 08/23/2023, Additional history exists SDOH Screening 04/08/2026 04/08/2025 Depression Screening 04/15/2026 04/15/2025, 04/15/20 25 Disability Screening 04/15/2026 04/15/2025 Tobacco Screening 04/15/2026 04/15/2025 Mammogram 08/27/2026 08/27/2024, 07/30, 08/16/2022, Additional history exists RSV Patients and Patients Aged 60 years or older (1 - 1-dose 75+ series) 2044 Cervical Cancer Screening Discontinued HIB Vaccines Aged Out No longer eligi ble based on patient's age to complete this topic HPV Vaccines Aged Out No longer eligi ble based on patient's age to complete this topic IPV Vaccines Aged Out No longer eligi ble based on patient's age to complete this topic Meningococcal B Vaccine Aged Out No l onger eligible based on patient's age to complete this topic Meningococcal Vaccine Aged Out No bruce ning eligible based on patient's age to complete this topic RSV under 20 months Aged Out No longe r eligible based on patient's age to complete this topic Rotavirus Vaccines Aged Out No longer eligible based on patient's age to complete this topic Goals Goal Patient Goal Type Associated Problems Recent Progress Patient-Stated? Author Blood Pressure < 140/90 Blood Pressure 140/86(2024 9:36 AM EDT) No Samy Baez PharmD Hemoglobin A1c < 7 Result Component 7.4( 9:24 AM EDT) No Samy Baez PharmD Procedures Procedure Name Priority Date/Time Associated Diagnosis Comments POCT GLYCATED HEMOGLOBIN, TOTAL Routine 04/01/2025 9:24 AM EDT Type 2 diabetes mellitus with other specified complication, without long-term current use of insulin ([facility]) LIPID PANEL, STANDARD Routine 11/19/2024 9:22 AM EST BI MAMMOGRAM SCREENING TOMOSYNTHESIS BILATERAL Routine 08/27/2024 7:45 AM EDT ALBUMIN, RANDOM URINE W/CREATININE Routine 08/13/2024 12:34 PM EDT Type 2 diabetes mellitus with other specified complication, without long-term current use of insulin ([facility]) DIABETES EYE EXAM Routine 01/09/2024 PROPHYLAXIS - ADULT Routine 01/11/2022 1 2:00 AM EST BITEWINGS - 4 RADIOGRAPHIC IMAGES Routine 01/11/2022 12:00 AM EST PERIODIC ORAL EVALUATION - ESTABLISHED PATIENT Routine 01/11/2022 12:00 AM EST INTRAORAL - COMPLETE SERIES OF RADIOGRAPHIC IMAGES Routine 08/24/2019 12:00 AM EDT COLONOSCOPY Routine 06/05/2019 from Last 3 Months or Most Recently Relevant to Health Maintenance Results * (ABNORMAL) POCT HGB A1C (04/01/2025 9:24 AM EDT) Hemoglobin A1C 7.4(A) 4.0 - 6.0 % QC Media Lot # [id number] Lot# Expiration Date [id number] Blood 04/01/2025 9:24 AM EDT us Mariluz Trevino MD POINT OF CARE TEST ENTER/EDIT OR DERABLES Final Result * (ABNORMAL) Lipid Panel, Standard (11/19/2024 9:22 AM EST) Triglycerides 296(H) <150 mg/dL [facility] Comment:Desirable Triglyceri de: less than 150 mg/dLBorderline High Triglyceride 150-199 mg/dLHigh Triglyceride: 200-499 mg/dLVery High Triglyceride: greater than or equal to 5OO mg/dL Cholesterol 156 <200 mg/dL [facility] Comment:Desirable Cholestero l: less than 200 mg/dLBorderline High Cholesterol: 200-239 mg/dLHigh Cholesterol: greater than 239 mg/dL LDL Cholesterol Calculated 55 <100 mg/dL [facility] Comment:Desirable LDL: less than 100 mg/dLNear Optimal/Above Optimal LDL: 110- 129 mg/dLBorderline High LDL: 130-159 mg/dLHigh LDL: 160-189 mg/dLVery High LDL: greater than or equal to 190 mg/dL HDL Cholesterol 42 >40 mg/dL [facility] Comment:Desirable HDL: great er than 40 mg/dL Note: This HDL assay may give artificially low results in patients with liver disease. 11/19/2024 9:22 AM EST 11/19/2024 11:40 AM EST us Mariluz Trevino MD LAB BLOOD ORDERABLES Final Resul t [facility] [address] [place] [phone] * BI Mammogram Screening Tomosynthesis Bilateral (08/27/2024 7:45 AM EDT) Anatomical Region Laterality Modality Breast Bilateral Mammography 08/27/2024 7:45 AM EDT Narrative 09/06/2024 6:39 PM EDT ? [facility] ? [address] ?[place], [place] [address] ? Mammography Report ? Signed ? Patient: Livingston Mayo,Luh ?MR#: [id number] ?? [id number] ? : 1970 ?Acct:[id number] ? Age/Sex: 54 / F ?ADM Date: 08/27/24 ? Loc: HO.MAMMO ? Attending Dr: Mariluz Trevino MD ? Ordering Physician: Mariluz Trevino MD ?Results: 1Negative ? Date of Service: 08/27/24 ?Follow Up: 1 Year From Orig ?? inal Mammogram ? Procedure(s): MM tomosynthesis screening BI ?? Accession Number(s): [id number] ? cc: Mariluz Trevino MD ? EXAMINATION: ?? MM SCREENING DIGITAL BREAST TOMOSYNTHESIS, BILATERAL ? CLINICAL INFORMATION: ? Screening. Asymptomatic. ? COMPARISON: ?? Mammography: Comparison is made with available priors ? TECHNIQUE: ?? Digital breast mammography with tomosynthesis is performed in both the ?? craniocaudal and mediolateral oblique views along with computer-aided ?? detection (CAD). ? FINDINGS: ?? The breasts are heterogeneously dense, which may obscure small masses ?? (ACR BI-RADS breast composition Category c). ? There are no significant masses, abnormal calcifications, or other ?? abnormalities. ? MM/MM tomosynthesis screening BI ?? IMPRESSION: ?? No mammographic evidence of malignancy. ? ASSESSMENT: ? BI-RADS BI-RADS 1 - Negative ? RECOMMENDATION: ?? Routine annual mammography screening. ? 1 year F/U ? This examination should not preclude the clinical evaluation of a ?? suspicious palpable abnormality. ? This patient's information was entered into a reminder system with a ?? target due date for their next mammogram. ? Electronically signed by: ??Eli Chandra DO ??09/06/2024 06:35 PM EDT ? Dictated By: ?Eli Chandra DO ? Signed By: ?<Electronically signed by Eli Chandra, DO in OV> ? 09/06/24 1835 ? DD/ 0745 ? TD/TT: 08/27/24 0810 ? Applications Administrator: ? Procedure Note Pranay, Image - 09/06/2024 [facility] [address] [place] [address] Mammography Report Signed Patient: Codie Bennett#: [id number] : 1970Acct:[id number] Age/Sex: 54 / FADM Date: 08/27/24 Loc: [facility] Attending Dr: Mariluz Trevino MD Ordering Physician: Mariluz Trevino MDResults: 1Negative Date of Service: 08/27/24Follow Up: 1 Year From Orig inal Mammogram Procedure(s): MM tomosynthesis screening BI Accession Number(s): [id number] cc: Mariluz Trevino MD EXAMINATION: MM SCREENING DIGITAL BREAST TOMOSYNTHESIS, BILATERAL CLINICAL INFORMATION: Screening. Asymptomatic. COMPARISON: Mammography: Comparison is made with available priors TECHNIQUE: Digital breast mammography with tomosynthesis is performed in both the craniocaudal and mediolateral oblique views along with computer-aided detection (CAD). FINDINGS: The breasts are heterogeneously dense, which may obscure small masses (ACR BI-RADS breast composition Category c). There are no significant masses, abnormal calcifications, or other abnormalities. MM/MM tomosynthesis screening BI IMPRESSION: No mammographic evidence of malignancy. ASSESSMENT: BI-RADS BI-RADS 1 - Negative RECOMMENDATION: Routine annual mammography screening. 1 year F/U This examination should not preclude the clinical evaluation of a suspicious palpable abnormality. This patient's information was entered into a reminder system with a target due date for their next mammogram. Electronically signed by: Eli Chandra DO 09/06/2024 06:35 PM EDT RP Dictated By: Eli Chandra DO Signed By: <Electronically signed by Eli Chandra DO in OV> 09/06/24 1835 DD/ 0745 TD/TT: 08/27/24 0810 Applications Administrator: Mariluz Trevino MD IMG BI PROCEDURES Edited Result - Final * Albumin, Random Urine W/Creatinine (08/13/2024 12:34 PM EDT) Creatinine, Urine 81.79 mg/dL [facility] Microalbumin Urine 19.0 mg/L [facility] Microalbum Creatinine Ratio Ur 23.2 <30 ug/mg cr [facility] Comment:Albumin/Creatinine R atio Reference Ranges: Normal: < 30 ug/mg creatinine Microalbuminuria: 30 - 300 ug/mg creatinineClinical Albuminuria: > 300 ug/mg creatinine Urine 08/13/2024 12:3 4 PM EDT 08/13/2024 1:24 PM EDT Mariluz Trevino MD LAB URINE ORDERABLES Final Resul t [facility] [address] [place] [address] [phone] * Diabetes Eye Exam (01/09/2024) Eye Exam Normal Normal, BIRADS 0 , BIRADS 1 , BIRADS 2, BIRADS 3 , BIRADS 4+ us Historical Provider HEALTH MAINTENANCE Final Result * Hm Colonoscopy (06/05/2019) Colonoscopy Normal Normal 06/05/2019 Historical Provider HEALTH MAINTENANCE Final Result from Last 3 Months or Most Recently Relevant to Health Maintenance [facility] Care Teams Director Data Relationship Specialty Start Date End Date Mariluz Trevino MD [address] [place] [address] PCP - General Family Medicine 11/09/12 Samy Baez, PharmD [address] [place] [phone] Pharmacist Internal Medicine 07/20/24
--- OUTSIDE RECORDS SUMMARY | 2025-04-15 11:03 | XMS_ITS | Encounter Summary ---
Author Organization [employer] Address [address] [facility] 7t [place] [address] Care Team Providers Care Wealth Management Director Name Role Phone Mariluz Trevino MD Primary Care Provider [phone] Samy Baez PharmD Unavailable Reason for Visit * Reason Comments Med Refill Encounter Details Date Type Department Care Team ([facility] st Contact Info) Description 11/07/2023 Refill [facility] [address] [place], [place] [phone] Mamta Ramires MD [address] [place] [address] Type 2 diabetes mellitus with hyperglycemia, with long-term current use of insulin ([facility]) Social History Tobacco Use Types Packs/Day Years Used Date Smoking Tobacco: Never Assessed Depression Answer Date Recorded Patient Health Questionnaire-9 Score 0 11/08/2023 Patient Health Questionnaire-9 Score 0 11/08/2023 Last PHQ-9: Questionnaire Data Not on file 1 01/09/2023 Housing Stability Answer Date Recorded What is your housing situation today? I have caio simms 11/08/[address] you li ve. Do you have problems with any of the following? None of the above 11/08/2023 Food Insecurity Answer Date Recorded Within the [...] Author Patient Health Questionnaire -2 Score 0 11/08/2023 1:24 PM Miroslava Hernandez MA * Over the past 2 weeks, how often have you been bothered by any of the following problems? Question Answer Date of Assessment Author Little interest or pleasure in doing things Not at all 11/08/2023 1:24 PM Miroslava Hernandez MA Feeling down, depressed, or hopeless Not at all 11/08/2023 1:24 PM Miroslava Hernandez MA Trouble falling or staying asleep, or sleeping too much Not at all 11/08/2023 1:24 PM Love Hernandez MA Feeling tired or having little energy Not at all 11/08/2023 1:24 PM Miroslava Hernandez MA Poor appetite or overeating Not at all 11/08/2023 1: 24 PM Love Hernandez MA Feeling bad about yourself - or that you are a failure or have let yourself or your family down Not at all 11/08/2023 1:24 PM Miroslava Hernandez MA Trouble concentrating on things, such as reading the newspaper or watching television Not at all 11/08/2023 1:24 PM Miroslava Hernandez MA Moving or speaking so slowly that other people could have noticed? Or the opposite - being so fidgety or restless that you have been moving around a lot more than usual. Not at all 11/08/2023 1:24 PM Love Hernandez MA Thoughts that you would be better off or hurting yourself in some way Not at all 11/08/2023 1:24 PM Kati Hernandez MA Patient Health Questionnaire-9 Score 0 11/08/2023 1:24 PM Alexa Hernandez MA documented as of this encounter Plan of Treatment Upcoming Encounters Date Type Department Care Team (Late st Contact Info) Description 07/01/2025 9:00 AM EDT Medication Management [facility] [address] [place] [address] Samy Baez, PharmD [address] [place] [address] documented as of this encounter Visit Diagnoses Diagnosis Type 2 diabetes mellitus with hyperglycemia, with long-term current use of insulin ([facility]) documented in this encounter Care Teams Wealth Management Director Relationship Specialty Start Date End Date Mariluz Trevino MD [address] [place] [phone] PCP - General Family Medicine 11/09/12 Samy Baez, PharmD [address] [place] [phone] Pharmacist Internal Medicine 07/20/24 documented as of this encounter
--- OUTSIDE RECORDS SUMMARY | 2025-04-15 11:03 | XMS_ITS | Encounter Summary ---
Author Organization [employer] Address [address] [facility] 7t [place] [address] Care Team Providers Care Waterway Traffic Checker Name Role Phone Mariluz Trevino MD Primary Care Provider [phone] Samy Baez PharmD Unavailable [phone] Reason for Visit * Reason Onset Date Comments Chart Prep 04/12/2025 Encounter Details Date Type Department Care Team ([facility] st Contact Info) Description 04/12/2025 Telephone [facility] [address] [place], [place] [phone] Mariluz Trevino MD [address] [place], [place] [phone] Chart Prep Social History Tobacco Use Types Packs/Day Years [...] Recorded Patient Health Questionnaire-2 Score 0 11/08/2023 Internet Access Answer Date Recorded Internet Access [...] encounter Miscellaneous Notes * Telephone Encounter - Jenn Chaparro MA - 04/12/2025 1:31 PM EDT Chart Prep Labs: done Images: done Vaccines due: Covid Due, Tdap Due, Hep A Due, Hep B Due, PCV20 Due, Flu Due, and Shingles in pharmacy Due Referrals: Radiology Completed; CT Abdomen completed. Screenings: Colonoscopy , Eye Exam, Foot Exam, and HIV screening Overdue care gaps: Glucose, PQ9, GAD7, and Disability documented in this encounter Plan of Treatment Upcoming Encounters Date Type Department Care Team (Late st Contact Info) Description 07/01/2025 9:00 AM EDT Medication Management [facility] [address] [place] [address] Samy Baez PharmD [address] [place] [address] documented as of this encounter Goals Goal Patient Goal Type Associated Problems Recent Progress Patient-Stated? Author Blood Pressure < 140/90 Blood Pressure 140/86(2024 9:36 AM EDT) No Samy Baez, Eulogio Hemoglobin A1c < 7 Result Component 7.4( 9:24 AM EDT) No Samy Baez, Eulogio documented as of this encounter Visit Diagnoses Not on filedocumented in this encounter Additional Health Concerns Assessment Noted Time PHQ-9 Depression Total Score: 0 11/08/20 23 1:24 PM EST documented as of this encounter Care Teams Waterway Traffic Checker Relationship Specialty Start Date End Date Mariluz Trevino MD [address] [place] [address] PCP - General Family Medicine 11/09/12 Samy Baez, KenD [address] [place] [address] Pharmacist Internal Medicine 07/20/24 documented as of this encounter
--- OUTSIDE RECORDS SUMMARY | 2025-04-15 11:03 | XMS_ITS | Encounter Summary ---
Author Organization [employer] Address 75 [facility] 7t [place] [address] Care Team Providers Care Metal Leaf Layer Name Role Phone Mariluz Trevino MD Primary Care Provider [phone] Samy Baez PharmD Unavailable [phone] Encounter Details Date Type Department Care Team (Late st Contact Info) Description 04/15/2025 9:30 AM EDT Office Visit [facility] [address] [place], [place] [phone] Mariluz Trevino MD [address] [place], [place] [phone] Routine general medical examination at a health care facility (Primary Dx); Primary hypertension; Dyslipidemia; Vitamin D deficiency; Type 2 diabetes mellitus with other specified complication, without long-term current use of insulin (CMS/HCC); Acquired hypothyroidism; Metabolic dysfunction-associate d steatotic liver disease (MASLD); Non-functioning kidney; Hydroureter; Disorder of kidney and ureter; Chronic pain of both knees Social History Tobacco Use Types Packs/Day Years [...] AM EDT documented as of this encounter Last Filed Vital Signs Vital Sign Reading Time Taken Comments Blood Pressure 140/86 04/15/2025 9:36 AM EDT Pulse 80 04/15/2025 9:36 AM EDT Temperature 36.2 ??C (97.1 ??F) 04/15/2025 9:36 AM ED T Respiratory Rate 16 04/15/2025 9:36 AM EDT Oxygen Saturation - - Inhaled Oxygen Concentration - - Weight 82.7 kg (182 lb 6.4 oz) 04/15/2025 9:36 A M EDT Height 164.1 cm (5' 4.61 ) 04/15/2025 9:36 AM ED T Body Mass Index 30.72 04/15/2025 9:36 AM EDT documented in this encounter Functional Status * Over the past 2 weeks, how often have you been bothered by any of the following problems? Question Answer Date of Assessment Author Patient Health Questionnaire -2 Score 0 04/15/2025 9:36 AM EDT Miroslava Robert MA * Little interest or pleasure in doing things Answer Date of Assessment Author Not at all 04/15/2025 9:36 AM EDT Love Robert MA * Feeling down, depressed, or hopeless [...] or on edge 0 04/15/2025 9:36 AM Miroslava Epperson MA Not being able to stop or control worrying 0 04/15/2025 9:36 AM Miroslava Epperson MA Worrying too much about different things 0 04/15/2025 9:36 AM Miroslava Epperson MA Trouble relaxing 0 04/15/2025 9:36 AM EDT Love Gordon MA Being so restless that it is hard to sit still 0 04/15/2025 9:36 AM EDT Miroslava Robert MA Becoming easily annoyed or irritable 0 04/15/2025 9:36 AM EDT Miroslava Robert MA Feeling afraid as if somethi ng awful might happen 0 04/15/2025 9:36 AM EDT Miroslava Robert MA MARIELOS-7 Total Score 0 04/15/2025 9:36 AM EDT Love Robert MA documented as of this encounter Plan of Treatment Upcoming Encounters Date Type Department Care Team (Late st Contact Info) Description 07/01/2025 9:00 AM EDT Medication Management [facility] [address] [place] [address] Samy Baez PharmD [address] [place] [address] Scheduled Orders Name Type Priority Associated Diagnoses Orde r Schedule XR Knee 3 Views Right Imaging Routine Chronic pain of both knees Expected: 04/15/2025, Expires: 04/15/2026 XR Knee 3 Views Left Imaging Routine Chronic pain of both knees Expected: 04/15/2025, Expires: 04/15/2026 documented as of this encounter Goals Goal Patient Goal Type Associated Problems Recent Progress Patient-Stated? Author Blood Pressure < 140/90 Blood Pressure 140/86(2024 9:36 AM EDT) No Samy Baez PharmD Hemoglobin A1c < 7 Result Component 7.4( 9:24 AM EDT) No Samy Baez PharmD documented as of this encounter Visit Diagnoses Diagnosis Routine general medical examination at a health care facility- Primary Primary hypertension Unspecified essential hypertension Dyslipidemia Other and unspecified hyperlipidemia Vitamin D deficiency Type 2 diabetes mellitus with other specified complication, without long-term current use of insulin ([facility]) Acquired hypothyroidism Unspecified hypothyroidism Metabolic dysfunction-associated steatotic liver disease (MASLD) Non-functioning kidney Unspecified disorder of kidney and ureter Hydroureter Disorder of kidney and ureter Unspecified disorder of kidney and ureter Chronic pain of both knees documented in this encounter Additional Health Concerns Assessment Noted Time PHQ-9 Depression Total Score: 0 04/15/20 25 9:36 AM EDT documented as of this encounter Care Teams Metal Leaf Layer Relationship Specialty Start Date End Date Mariluz Trevino MD [address] [place] [address] PCP - General Family Medicine 11/09/12 Samy Baez PharmD [address] [place] [address] Pharmacist Internal Medicine 07/20/24 documented as of this encounter
--- OUTSIDE RECORDS SUMMARY | 2025-04-15 11:03 | XMS_ITS | Encounter Summary ---
Author Organization [employer] Address [address] [facility] 7t [place] [address] Care Team Providers Care Browning Processor Name Role Phone Mariluz Trevino MD Primary Care Provider [phone] Samy Baez PharmD Unavailable [phone] Reason for Visit * Reason Comments Med Refill Encounter Details Date Type Department Care Team (Late Contact Info) Description 06/27/2023 Refill [facility] [address] [place], [place] [phone] Mariluz Trevino MD [address] [place], [place] [phone] Type 2 diabetes mellitus with other specified complication, without long-term current use of insulin (CMS/HCC); Hypertriglyceridemia Social History Tobacco Use Types Packs/Day Years [...] 9:00 AM EDT Medication Management [facility] [address] [place], [place] [phone] Samy Baez, PharmD [address] [place], [place] [phone] documented as of this encounter Visit Diagnoses Diagnosis Type 2 diabetes mellitus with other specified complication, without long-term current use of insulin (CMS/HCC) Hypertriglyceridemia Pure hyperglyceridemia documented in this encounter Care Teams Browning Processor Relationship Specialty Start Date End Date Mariluz Trevino MD [address] [place], [place] [phone] PCP - General Family Medicine 11/09/12 Samy Baez, KenD [address] [place] [address] Pharmacist Internal Medicine 07/20/24 documented as of this encounter
== END 2025-04-15 10:28 | disposition home or self-care (01) ==
LOC: HO.HHCX 10:27
PROVIDERS: Visit Provider Family Medicine
DX: M25.561 Pain in right knee (principal); M25.562 Pain in left knee; G89.29 Other chronic pain
CPT/HCPCS: 73562

== ENCOUNTER → 2025-04-15 10:27 | Outpatient (BNV) | payer OTHER, SELFPAY | PROVIDERS: Visit Provider Radiology Diagnostic Radiology | DX: M25.562 Pain in left knee (principal); M25.561 Pain in right knee | CPT/HCPCS: 73562 ==

== ENCOUNTER 2025-07-22 11:03 | Outpatient (REF) | payer OTHER, SELFPAY ==
--- NOTE | ~2025-07-22 | XR_ITS ---
EXAMINATION: XR SHOULDER, RIGHT CLINICAL INFORMATION: right shoulder pain, posterior. Limited internal rotation. COMPARISON: None available. TECHNIQUE: AP external rotation, Grashey, scapular Y, and axillary views of the right shoulder. FINDINGS: Normal bone mineralization. No fracture, dislocation, or suspicious bone lesion. Normal alignment. The glenohumeral joint is normal. The AC joint is normal. There is a neutral lateral acromion. No undersurface spurring. The subacromial space is preserved. Remainder of the soft tissue and bony structures appear normal. XR/XR shoulder RT min 2V IMPRESSION: Normal right shoulder. Electronically signed by: Srikanth Don MD 07/22/2025 12:10 PM EDT
--- OUTSIDE RECORDS SUMMARY | 2025-07-22 12:25 | XMS_ITS | Encounter Summary ---
Author Organization [employer] Address [address] [place] [address] 7t [place] [address] Care Team Providers Care Director Marketing Analytics Name Role Phone Mariluz Trevino MD Primary Care Provider [phone] Samy Baez PharmD Unavailable [phone] Encounter Details Date Type Department Care Team (Late st Contact Info) Description 02/21/2023 Orders Only [facility] [address] [place], [place] [phone] Allyssa Jefferson LPN Social History Tobacco Use Types Packs/Day Years Used Date Smoking Tobacco: Never Assessed Comments Unknown Sex and Gender Information Value Date Recorded Sex Assigned at Female 09/27/2022 10:16 AM EDT Legal Sex Female 10:16 AM EDT Gender Identity Female 09/27/2022 10:16 AM EDT Sexual Orientation Straight 09/27/2022 10 :16 AM EDT documented as of this encounter Plan of Treatment Not on file documented as of this encounter Visit Diagnoses Not on filedocumented in this encounter Care Teams Director Marketing Analytics Relationship Specialty Start Date End Date Mariluz Trevino MD [address] [place] [phone] PCP - General Family Medicine 11/09/12 Samy Baez, PharmD [address] [place], [place] [phone] Pharmacist Internal Medicine 07/20/24 documented as of this encounter
[2025-07-22 13:59] LABS: Microalbum/Creatinine Ratio Ur 18.3 ug/mg cr (<30)
[2025-07-22 14:32] LABS: Alanine Aminotransferase 19 U/L (0-31); Albumin Level 4.6 g/dL (3.5-5.0); Alkaline Phosphatase 102 U/L (39-117); Anion Gap 14 (12-20); Aspartate Amino Transferase 26 U/L (5-31); Blood Urea Nitrogen 17 mg/dL (9-16); Calcium 9.6 mg/dL (8.4-10.2); Carbon Dioxide 24 mmol/L (22-29); Chloride 104 mmol/L (96-108); Cholesterol 172 mg/dL (<200); Estimated Glomerular Filt Rate > 60; HDL Cholesterol 39 mg/dL (>40); Potassium 4.1 mmol/L (3.3-5.1); Sodium 138 mmol/L (135-145); Total Protein 8.0 g/dL (6.5-8.0); Triglycerides 196 mg/dL (<150)
[2025-07-22 14:41] LABS: Folate 10.3 ng/mL (> or = 4.0); Vitamin B12 452 pg/mL (200-900)
[2025-07-22 14:54] LABS: Reflex LDLD? No
== END 2025-07-22 11:04 | disposition home or self-care (01) ==
LOC: HO.HHCL 11:03
PROVIDERS: PCP Family Medicine; Visit Provider Family Medicine
DX: M25.511 Pain in right shoulder (principal); E11.69 Type 2 diabetes mellitus with other specified complication; E55.9 Vitamin D deficiency, unspecified; E03.9 Hypothyroidism, unspecified; E78.5 Hyperlipidemia, unspecified
CPT/HCPCS: 36415; 73030; 80053; 80061; 82043; 82306; 82570; 82607; 82746; 84443

== ENCOUNTER → 2025-07-22 11:28 | Outpatient (BNV) | payer OTHER, SELFPAY | PROVIDERS: PCP Family Medicine; Visit Provider Radiology Diagnostic Radiology | DX: M25.511 Pain in right shoulder (principal) | CPT/HCPCS: 73030 ==

== ENCOUNTER 2025-08-19 10:51 | Outpatient (AMB) | payer OTHER, SELFPAY ==
--- NOTE | 2025-08-19 10:54 | MHC.OFFVIS ---
Vital Signs 08/19/25 11:02 Height 5 ft 6 in Weight 176 lb BMI 28.4 BP 116/80 Blood Pressure Location Rt brachial Position Sitting Pulse 80 Pulse Source Pulse Oximeter Pulse Oximetry (%) 100 Oxygen Delivery Method Room Air Intake Visit Reasons: colo screening Intake Note: New pt for recall colo screening. Last colo 2018 w/ Dr. Roberts. Normal but poor prep. CC: Pt denies any GI sx or concerns at this time. Civil Engineering Professional requested for provider only for medical terminology interpretation purposes. Pt also mentions that she would like to discuss having potential cologuard instead. Civil Engineering Professional Required: Yes Civil Engineering Professional Services: Civil Engineering Professional Present Civil Engineering Professional Name: Opal (GI LM) Information Interpreted: clinical only Accompanied by: Self / Same As Patient Allergies No Known Allergies (No Known Allergies*) Allergy (Verified 11/07/23 19:07) HPI HPI colo screening: Details: 55 year old? female with past medical history of hypothyroidism, hypertension, diabetes, hyperlipidemia is here today for pre colonoscopy screening.? Patient was sent to us by her PCP.? Patient had colonoscopy in 2019, however suboptimal prep.? Patient denies any gastrointestinal symptoms in the past or at present.? Patient reports that she is moving her bowels without any issues. Denies any personal or family history of gastrointestinal disease, colon polyps, or CRC.? Denies history of difficulty with sedation or anesthesia in the past.? Negative for history of sleep apnea.? Denies any history of cardiac, renal, pulmonary, or hepatic disease.?? No history of infectious? diseases like hepatitis A, B, C, HIV or tuberculosis.? Patient is not on any anticoagulation [facility] Medical History Dyslipidemia Type 2 diabetes mellitus Hypothyroidism Non-functioning kidney Hypertension Left upper quadrant pain Social History Alcohol intake: current Alcohol intake frequency: holidays/special occasions only Review of Systems Const Denies weight gain and Denies weight loss ENT Reports no additional complaints, Denies dysphagia and Denies odynophagia Card Reports no additional complaints Resp Reports no additional complaints GI Denies abdominal pain, Denies belching, Denies melena, Denies bloating, Denies change in bowel habits, Denies dysphagia, Denies excessive flatus, Denies dyspepsia, Denies heartburn, Denies diarrhea, Denies loose stools, Denies nausea, Denies odynophagia and Denies vomiting Reports no additional complaints Musc Reports no additional complaints Neuro Reports no additional complaints Psych Reports no additional complaints Endo Reports no additional complaints Physical Exam Vital Signs: Last Vital Signs Pulse 80 08/19/25 11:02 BP 116/80 08/19/25 11:02 Pulse Ox 100 08/19/25 11:02 Oxygen Delivery Method Room Air 08/19/25 11:02 BMI result Body Mass Index 28.4 Const General: healthy appearing, no acute distress and well developed Nutritional Appearance: well nourished Orientation/consciousness: patient oriented x3 Resp Effort & Inspection: normal respiratory effort, able to speak in complete sentences, no tracheal deviation and symmetric chest movement Auscultation: clear to auscultation bilaterally Cardio Rate: regular rate GI Inspection: Yes normal to inspection and No distended Palpation (GI): Soft to palpation, not firm, nontender and No hepatosplenomegaly present Auscultation: normal bowel sounds General: Yes no CVA tenderness Back/Spine/Pelvis Back: no CVA tenderness Skin General skin exam: elasticity normal, turgor normal and dry skin Neuro General: patient oriented x3 Psych Appearance: grossly normal Mental Status: mental status grossly normal Assessment & Plan Assessment & Plan (1) Screen for colon cancer: Code(s): Z12.11 - Encounter for screening for malignant neoplasm of colon Plan Patient denies any GI, cardiac or respiratory symptoms.? Denies any issues with anesthesia in the past.? Denies any history of sleep apnea.? No history infectious diseases in the past or present.? Not on any anticoagulation therapy.? No family or personal history of colon cancer or polyps.? Patient denies melena, hematochezia, unintentional weight loss or ribbon like stools.? Discussed at length the pre-procedure,? prep, diet & medications as well as what to expect prior, during and after the procedure.?? Stressed the importance of good bowel prep.? Recommended the use of Vaseline or Calmoseptine OTC & baby wipes with bowel movements to promote comfort.? ?Patient verbalizes understanding and agrees to plan of care.? She was given the opportunity to ask questions and all questions answered.? We will see her after the procedure.? Orders: Referrals GI Procedure Notification Z12.11 - Encounter for screening for malignant neoplasm of colon Medications: New bisacodyl (Dulcolax (bisacodyl)) Start taking 2 tablet every night 7 days before the procedure and 1 day before procedure take 4 tablets at noon time followed by MiraLax prep 10 mg (2 x 5 mg) PO BEDTIME 16 tabs 0RF Z12.11 - Encounter for screening for malignant neoplasm of colon polyethylene glycol 3350 (Miralax) As directed by gastroenterology department at [facility] 238 grams PO ONCE 238 grams 0RF Z12.11 - Encounter for screening for malignant neoplasm of colon Coding Level of Care Code New Pt Level 3 (83527) Diagnoses Screen for colon cancer Z12.11 Time Spent (min) 40 Comment 30 minutes spent with patient and additional 10 minutes spent reviewing her records
[2025-08-19 11:02] VITALS: BP 116/80; PULSE 80; O2SAT 100; BMI 28.4
--- OUTSIDE RECORDS SUMMARY | 2025-08-19 13:27 | XMS_ITS | Encounter Summary ---
Author Organization [facility] Address [address] [place] [address] [address] [place] [address] Care Team Providers Care Nailer Hand Name Role Phone Mariluz Trevino MD Primary Care Provider [phone] Samy Baez PharmD Unavailable [phone] Encounter Details Date Type Department Care Team (Latest Contact Info) Description 01/11/2022 Abstract [facility] CONVERSIONS Dental, Provider, DDS Social History [...] Care Team ( st Contact Info) Description 08/26/2025 9:30 AM EDT Medication Management [facility] [address] [place] [phone] Samy Baez, PharmD [address] [place] [address] 10/22/2025 9:15 AM EST Office Visit [facility] [address] [place] [phone] Mariluz Trevino MD [address] [place] [address] documented as of this encounter Visit Diagnoses Not on filedocumented in this encounter Care Teams Nailer Hand Relationship Specialty Start Date End Date Mariluz Trevino MD [address] [place] [phone] PCP - General Family Medicine 11/09/12 Samy Baez, KenD [address] [place] [phone] Pharmacist Internal Medicine 07/20/24 documented as of this encounter
--- OUTSIDE RECORDS SUMMARY | 2025-08-19 13:27 | XMS_ITS | Encounter Summary ---
Author Organization [employer] Address [address] [facility] 7t [place] [address] Care Team Providers Care Professor Sculpture Name Role Phone Mariluz Trevino MD Primary Care Provider [phone] Samy Baez PharmD Unavailable [phone] Reason for Referral * Consultation (Routine) - Pending Review Specialty Diagnoses / Procedures Referred By Contac t Referred To Contact Pharmacy Diagnoses Type 2 diabetes mellitus with other specified complication, without long-term current use of insulin (CMS/HCC) Primary hypertension Mariluz Trevino MD [address] [place] [address] Phone: tel: fax: Referral ID Status Reason Start Date Expiration Date Visits Requested Visits Authorized [id number] Pending Review Consult and Treat 4 10/09/2025 6 6 Encounter Details Date Type Department Care Team (Late st Contact Info) Description 10/09/2024 Orders Only [facility] [address] [place], [place] [phone] Mariluz Trevino MD [address] [place], [place] [phone] Type 2 diabetes mellitus with other specified [...] Care Team (Late st Contact Info) Description 08/26/2025 9:30 AM EDT Medication Management [facility] [address] [place] [phone] Samy Baez, KenD [address] [place] [phone] 10/22/2025 9:15 AM EST Office Visit [facility] [address] [place] [phone] Mariluz Trevino MD [address] [place] [address] Scheduled Referrals Name Type Priority Associated Diagnoses Orde r Schedule Referral to Pharmacy CDTM Outpatient Referral Routine Type 2 diabetes mellitus with other specified complication, without long-term current use of insulin ([facility]) Primary hypertension Ordered: 10/09/2024 documented as of this encounter Goals Goal Patient Goal Type Associated Problems Recent Progress Patient-Stated? Author Blood Pressure < 140/90 Blood Pressure 136/80(2024 10:34 AM EDT) No Samy Baez PharmD Hemoglobin A1c < 7 Result Component 8.1( 10:36 AM EDT) No Samy Baez PharmD documented as of this encounter Visit Diagnoses Diagnosis Type 2 diabetes mellitus with other specified complication, without long-term current use of insulin ([facility])- Primary Primary hypertension Unspecified essential hypertension documented in this encounter Additional Health Concerns Assessment Noted Time PHQ-9 Depression Total Score: 0 11/08/20 23 1:24 PM EST documented as of this encounter Care Teams Professor Sculpture Relationship Specialty Start Date End Date Mariluz Trevino MD [address] [place] [address] PCP - General Family Medicine 11/09/12 Samy Baez PharmD [address] [place] [address] Pharmacist Internal Medicine 07/20/24 documented as of this encounter
--- OUTSIDE RECORDS SUMMARY | 2025-08-19 13:27 | XMS_ITS | Encounter Summary ---
Author Organization [employer] Address [address] [facility] 7t [place] [address] Care Team Providers Care Shipfitter Name Role Phone Mariluz Trevino MD Primary Care Provider [phone] Samy Baez PharmD Unavailable [phone] Encounter Details Date Type Department Care Team (Late st Contact Info) Description 07/22/2025 Results Follow-Up [facility] [address] [place] [address] Mariluz Trevino MD [address] [place] [address] XR Shoulder 2+ Views Right Social History Tobacco Use Types Packs/Day Years [...] Description 08/26/2025 9:30 AM EDT Medication Management [facility] [address] [place] [phone] Samy Baez PharmD [address] [place] [phone] 10/22/2025 9:15 AM EST Office Visit [facility] [address] [place] [phone] Mariluz Trevino MD [address] [place] [phone] documented as of this encounter Goals Goal Patient Goal Type Associated Problems Recent Progress Patient-Stated? Author Blood Pressure < 140/90 Blood Pressure 136/80(2024 10:34 AM EDT) No Samy Baez PharmElzbieta Hemoglobin A1c < 7 Result Component 8.1( 10:36 AM EDT) No Samy Baez PharmD documented as of this encounter Visit Diagnoses Not on filedocumented in this encounter Additional Health Concerns Assessment Noted Time PHQ-9 Depression Total Score: 0 04/15/20 9:36 AM EDT documented as of this encounter Care Teams Shipfitter Relationship Specialty Start Date End Date Mariluz Trevino MD [address] [place] [phone] PCP - General Family Medicine 11/09/12 Samy Baez, KenD [address] [place] [phone] Pharmacist Internal Medicine 07/20/24 documented as of this encounter
--- OUTSIDE RECORDS SUMMARY | 2025-08-19 13:27 | XMS_ITS | Encounter Summary ---
Author Organization [employer] Address [address] [facility] 7t [place] [address] Care Team Providers Care Packaging Supervisor Name Role Phone Mariluz Trevino MD Primary Care Provider [phone] Samy Baez PharmD Unavailable Encounter Details Date Type Department Care Team (Late st Contact Info) Description 05/10/2024 Abstract [facility] [address] [place], [place] [phone] Mariluz Trevino MD [address] [place], [place] [phone] Social History Tobacco Use Types Packs/Day Years [...] Description 08/26/2025 9:30 AM EDT Medication Management [address] [address] Samy Baez, Eulogio [address] [place] [phone] 10/22/2025 9:15 AM EST Office Visit [address] [address] Mariluz Trevino MD [address] [place] [phone] documented as of this encounter Procedures Procedure [...] documented as of this encounter Care Teams Packaging Supervisor Relationship Specialty Start Date End Date Mariluz Trevino MD [address] [place] [phone] PCP - General Family Medicine 11/09/12 Samy Baez, PharmD [address] [place] [address] Pharmacist Internal Medicine 07/20/24 documented as of this encounter
--- OUTSIDE RECORDS SUMMARY | 2025-08-19 13:27 | XMS_ITS | Clinical Summary ---
Author Organization [employer] Address [address] [facility] [address] [place] [address] Care Team Providers Care Hide Buffer Name Role Phone Mariluz Trevino MD Primary Care Provider [phone] Samy Baez PharmD Unavailable Allergies No known active allergies Medications Blood Glucose Monitoring Suppl (FreeStyle Lite) w/Device kit 1 Dose in the morning. 1 kit 1 02/07/20 24 Active atorvastatin (Lipitor) 10 MG tablet Take 1 tablet (10 mg) by mouth Once per day. 30 tablet 11 08/20/20 24 025 Active cholecalciferol (Vitamin D-3) 25 MCG (1000 UT) tablet Take 1 tablet (25 mcg) by mouth Once per day. 90 tablet 3 08/26/20 24 Active Calcium + Vitamin D3 600-5 MG-MCG tablet TAKE 1 TABLET BY MOUTH TWICE DAILY IN THE MORNING AND IN THE EVENING 180 tablet 3 10/31/20 24 Active pioglitazone (Actos) 45 MG tabletIndication s:Type 2 diabetes mellitus with other specified complication, without long-term current use of insulin (CMS/HCC) TAKE 1 TABLET BY MOUTH EVERY MORNING 90 tablet 1 02/28/20 25 Active glucose blood (FREESTYLE LITE) test stripIndications :Type 2 diabetes mellitus with other specified complication, without long-term current use of insulin (CMS/HCC) Use to check blood sugar once daily 50 each 11 04/01/20 25 Active FreeStyle lancetsIndicatio ns:Type 2 diabetes mellitus with other specified complication, without long-term current use of insulin (CMS/HCC) 1 each by Other route Once per day. 100 each 3 04/01/20 25 Active acetaminophen (Tylenol Extra Strength) 500 MG tabletIndication s:Chronic pain of both knees Take one or two tablets by mouth every 8 hours as needed for pain or fever. Maximum 6 tablets per day. 90 tablet 1 04/19/20 25 Active losartan (Cozaar) 50 MG tabletIndication s:Primary hypertension Take 1 tablet (50 mg) by mouth in the morning. 90 tablet 3 04/19/20 25 Active aspirin (Aspirin Low Dose) 81 MG EC tabletIndication s:Type 2 diabetes mellitus with other specified complication, without long-term current use of insulin (CMS/HCC) TAKE 1 TABLET BY MOUTH EVERY EVENING 90 tablet 3 05/03/20 25 Active Tirzepatide (Mounjaro) 7.5 MG/0.5ML solution auto-injectorInd ications:Type 2 diabetes mellitus with other specified complication, without long-term current use of insulin (CMS/HCC) Inject 7.5 mg under the skin 1 (one) time per week. 2 mL 3 05/17/20 25 Active metFORMIN XR (Glucophage-XR) 500 MG 24 hr tabletIndication s:Type 2 diabetes mellitus with hyperglycemia, with long-term current use of insulin (CMS/HCC) TAKE 2 TABLETS BY MOUTH TWICE DAILY IN THE MORNING AND EVENING 360 tablet 1 07/01/20 25 Active levothyroxine (Synthroid, Levoxyl) 125 MCG tablet TAKE 1 TABLET BY MOUTH EVERY MORNING 90 tablet 1 07/01/20 25 Active gabapentin (Neurontin) 100 MG capsuleIndicatio ns:Neuropathic pain TAKE 1 CAPSULE BY MOUTH TWICE DAILY IN THE MORNING AND AT BEDTIME 60 capsule 5 08/08/20 25 Active gabapentin (Neurontin) 100 MG capsuleIndicatio ns:Neuropathic pain TAKE 1 CAPSULE BY MOUTH TWICE DAILY IN THE MORNING AND AT BEDTIME 60 capsule 5 01/31/20 25 025 Discontinued Active Problems Problem Noted Date Diagnosed Date Chronic pain of both knees 07/29/2025 Assessment & Plan (07/29/2025 5:37 PM EDT): - 04/15/2025 bilateral knee x-rays showed minimal osteoarthrosis medial and patellofemoral compartments. - Continue judicious use of NSAIDs/APAP - Consider topical medications - Referred to physical therapy Acute pain of right shoulder 07/29/2025 Health care maintenance 04/19/2025 Assessment & Plan (04/19/2025 5:29 PM EDT): - physical exam 04/15/25 - IZ overdue for Hep A, B, Tdap, PCV, Covid, Shingles. Patient declined all. - Cancer screening: --Colon: colonoscopy in 2019, referring to GI --Breast: Mammo 09/06/24 BIRADS 1 --Cervix: s/p hysterectomy for non-malignant indication - Dental: - Bone: DEXA start at age 65 Metabolic dysfunction-associ ated steatotic liver disease (MASLD) 08/19/2024 Assessment & Plan (07/29/2025 5:35 PM EDT): - CT scan in Oct 2023 showed hepatic steatosis - Last liver test: 08/13/24 - FIB4 index 0.75, cirrhosis less likely - Last US / elastography - not ordered since low FIB4 index - GI: [facility] seen for colonoscopy only - continue working on lifestyle modifications - continue surveillance study (currently periodic lab, consider when FIB4 index > 1.44 Assessment & Plan (04/15/2025 4:42 PM EDT): - CT scan in Oct 2023 showed hepatic steatosis - Last liver test: 08/13/24 - FIB4 index 0.75, cirrhosis less likely - Last US / elastography - not ordered since low FIB4 index - GI: [facility] seen for colonoscopy only - continue working on lifestyle modifications - continue surveillance study (currently periodic lab, consider when FIB4 index > 1.44 Assessment & Plan (08/19/2024 7:00 AM EDT): - CT scan in Oct 2023 showed hepatic steatosis - Last liver test: 08/13/24 - FIB4 index 0.75, cirrhosis less likely - Last US / elastography - not ordered since low FIB4 index - GI: [facility] seen for colonoscopy only - continue working on lifestyle modifications - continue surveillance study (currently periodic lab, consider when FIB4 index > 1.44 Disorder of kidney and ureter 05/29/2018 Vitamin D deficiency 05/29/2018 Assessment & Plan (04/15/2025 4:42 PM EDT): - currently vitamin D and calcium supplementation - will check lab Assessment & Plan (08/26/2024 11:25 AM EDT): - currently vitamin D and calcium supplementation - will check lab Hydroureter 04/05/2017 Assessment & Plan (04/19/2025 5:25 PM EDT): - Followed by [facility], last seen in Oct 2023 - Most recent renal US in Nov 2024 showed an enlarged R kidney essentially replaced with cysts and normal left kidney. Assessment & Plan (08/25/2023 8:23 AM EDT): - Previously seen by Urologist, Dr. Winchester, pt requests a new referral to a new urologist - Refer to Urology for follow-up evaluation and a h/o Hydroureter - Most recent renal US 04/10/19 showed an enlarged R kidney essentially replaced with cysts Non-functioning kidney 04/05/2017 Assessment & Plan (04/19/2025 5:25 PM EDT): - following with [facility], last seen on 11/07/23 - last renal US in Nov 2024: Diffuse cystic replacement and enlargement of the right kidney. Left kidney appears within normal limits. - right side is replaced with cysts and non-functional - compensated by left kidney - protect left kidney - consider SGLT-2 inhibitor Assessment & Plan (05/08/2024 12:23 PM EDT): - following with [facility], last seen on 11/07/23 - right side is replaced with cysts and non-functional - compensated by left kidney - protect left kidney - consider SGLT-2 inhibitor Assessment & Plan (02/07/2024 5:44 AM EDT): - following with [facility], last seen on 11/07/23 - right side is replaced with cysts and non-functional - compensated by left kidney - protect left kidney Assessment & Plan (11/13/2023 5:54 PM EST): - following with [facility], last seen on 10/14/23 - right side is replaced with cysts and non-functional - compensated by left kidney - protect left kidney Assessment & Plan (08/25/2023 8:23 AM EDT): - right side is likely non-functional per urologist - compensated by left kidney Type 2 diabetes mellitus 04/05/2017 Assessment & Plan (07/29/2025 5:33 PM EDT): - A1C 8.1% on 07/22/25, increase from 7.4% on 04/01/2025 - Continue metformin (ER)1000 mg twice daily. - Continue Actos 45 mg daily. Plan to taper off. - Continue tirzepatide 5 mg weekly. - Consider SGLT-2 inhibitor, and/or increase tirzepatide and lower pioglitazone - Treatment Hx: Switched dulaglutide to semaglutide in April 2024. Switched semaglutide to tirzepatide in March 2025 - Improve adherence with medications and SMBG - Work on lifestyle modifications. DM Health Care Maintenance: - Last eye exam: 01/09/24 [facility]. No diabetes mellitus retniopathy. 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 - Last foot exam: 04/15/25 Intermediate to high-risk. Impaired sensation. - Last microalbumin test: 07/22/2025 UACR 18.3, history of microalbuminuria, 61.8 in 2022 - Last lipid profile: 07/22/25 TRIG 196; CHOL 172; LDL 94; HDL 39 - Last dental exam: Assessment & Plan (04/19/2025 5:22 PM EDT): - A1C 7.4% on 04/01/2025, improving. - Continue metformin (ER)1000 mg twice daily. - Continue Actos 45 mg daily. Plan to taper off. - Continue tirzepatide 5 mg weekly. - Consider SGLT-2 inhibitor, and/or increase tirzepatide and lower pioglitazone - Treatment Hx: Switched dulaglutide to semaglutide in April 2024. Switched semaglutide to tirzepatide in March 2025 - Improve adherence with medications and SMBG - Work on lifestyle modifications. DM Health Care Maintenance: - Last eye exam: 01/09/24 [facility]. No diabetes mellitus retniopathy. Hx Mild nonproliferative diabetic retinopathy of R eye in 2019. - Last foot exam: 04/15/25 Intermediate to high-risk. Impaired sensation. - Last microalbumin test: 08/13/24 UACR 23.2, known microalbuminuria, improved from 61.8 in 2022 - Last lipid profile: 08/13/24 - Last dental exam: Assessment & Plan (08/26/2024 11:20 AM EDT): [...] Care Maintenance: - Last eye exam: 01/09/24 [facility]. No diabetes mellitus retniopathy. Hx Mild nonproliferative diabetic retinopathy of R eye in 2019. - Last foot exam: 08/23/23 High-risk. Impaired [...] Care Maintenance: - Last eye exam: 01/09/24 [facility]. No diabetes mellitus retniopathy. Hx Mild nonproliferative diabetic retinopathy of R eye in 2019. - Last foot exam: 08/23/23 High-risk. Impaired [...] - Completed Hypertension 10/30/2015 Assessment & Plan (07/21/2025 6:10 PM EDT): -Goal BP < 130/80 per ACC/AHA guideline (Treatment threshold >= 130/80) -BP borderline, questionable medication adherence and on-going pain -Continue working on lifestyle modifications -Recommended self-monitoring BP. -Continue current medications: Losartan 50 mg daily -Microalbuminuria and non-functioning R kidney Assessment & Plan (04/19/2025 5:12 PM EDT): -Goal BP < 140/90 per JNC-8 and < 130/80 per ACC/AHA guideline (Treatment threshold >= 130/80) -BP borderline, questionable medication adherence and on-going pain -Continue working on lifestyle modifications -Recommended self-monitoring BP. -Continue current medications: Losartan 25 mg daily, increase to 50 mg daily -Microalbuminuria and non-functioning R kidney Assessment & Plan (08/19/2024 7:27 AM EDT): [...] problem arises Hypothyroidism 10/30/2015 Assessment & Plan (07/29/2025 5:35 PM EDT): - Most recent thyroid function test: 07/22/2025 TSH 3.94 - Current replacement: levothyroxine 125 mcg daily - Emphasized the importance of adherence and being honest about her adherence for safety. Assessment & Plan (04/15/2025 4:41 PM EDT): - Most recent thyroid function test: 08/13/24 TSH 3.26 - Current replacement: levothyroxine 125 mcg daily - Emphasized the importance of adherence and being honest about her adherence for safety. Assessment & Plan (08/19/2024 7:27 AM EDT): [...] for safety. Dyslipidemia 04/29/2015 Assessment & Plan (07/23/2025 9:27 PM EDT): - Last lipid profile: 07/22/25 TRIG 196; CHOL 172; LDL 94; HDL 39 - Current medication: Atorvastatin 10 mg nightly. Will intensify its dose in the near future. - Treatment history: Previously taking fish oil, but patient reported nausea and it was stopped. Previously taking pravastatin, which was a change related to atorvastatin in 2024. - Emphasized the importance of lifestyle modification. - Repeat fasting lipid profile in and hepatic panel in 3 mo. Assessment & Plan (04/19/2025 5:14 PM EDT): - Last lipid profile: 08/13/24, elevated Triglyceride and low HDL. - Current medication: Atorvastatin 10 mg nightly. Will intensify its dose in the near future. - Treatment history: Previously taking fish oil, but patient reported nausea and it was stopped. Previously taking pravastatin, which was a change related to atorvastatin in 2024. - Emphasized the importance of lifestyle modification. - Repeat fasting lipid profile in and hepatic panel in 3 mo. Assessment & Plan (08/20/2024 12:22 PM EDT): [...] Encounters Date Type Department Care Team Description 08/08/2025 Refill [facility] [place] [address] Mariluz Trevino MD Neuropathic pain 07/29/2025 Results Follow-Up [address] [place] [address] Mariluz Trevino MD Vitamin B12 (Cobalamin) and Folate Panel, Serum, Lipid Panel with Reflex to Direct LDL, Albumin, Random Urine W/Creatinine, Additional followed-up results: 3 07/23/2025 Telephone [facility] [place] [address] Mariluz Trevino MD eye 07/22/2025 10:15 AM EDT Office Visit [address] [place] [address] Mariluz Trevino MD Primary hypertension (Primary Dx); Dyslipidemia; Type 2 diabetes mellitus with other specified complication, without long-term current use of insulin (CMS/HCC); Acute pain of right shoulder; Screening for colon cancer; Chronic pain of both knees; Acquired hypothyroidism; Metabolic dysfunction-associate d steatotic liver disease (MASLD) 07/22/2025 Telephone [facility] [place] [address] Mariluz Trevino MD xray results 07/22/2025 Results Follow-Up [address] [place] [address] Mariluz Trevino MD XR Shoulder 2+ Views Right 07/22/2025 Travel 07/19/2025 Telephone [facility] [address] [place] [address] Mariluz Trevino MD CHART PREP 07/10/2025 Telephone [facility] [address] [place], [place] [phone] Mariluz Trevino MD 06/30/2025 Refill [facility] [address] [place], [place] [phone] Mariluz Trevino MD Type 2 diabetes mellitus with hyperglycemia, with long-term current use of insulin ([facility]) from Last 3 Months Immunizations Immunization Administration Dates Next Due Hep B, adult 08/10/2010,05/18/2009,05/12/2009 Influenza injectable quadriv alent preservative free 01/23/2015 Influenza, Split (incl. yovany fied surface antigen) 12/10/2013 MMR 05/27/2000 Moderna Covid-19 Vaccine 12+ 12/11/2021,02/21/20 21,01/23/2021 Pneumococcal Polysaccharide PPSV23 10/30/2015 TD (adult), 2 Lf tetanus tox oid, preservative free, adsorbed 12/30/2003 Tdap 12/10/2013 Varicella 04/28/2000 Family History Medical History Relation Name Comments Diabetes type II Sister 1 Hypothyroidism Sister 1 Cancer Sister 2 Relation Name Status Comments Father Alive Sister 1 Sister 2 Social History Tobacco Use Types Packs/Day Years [...] Sign Reading Time Taken Comments Blood Pressure 136/80 07/22/2025 10:34 AM EDT Pulse 80 07/22/2025 10:34 AM EDT Temperature 35.9 C (96.6 F) 07/22/2025 10:34 AM EDT Respiratory Rate 15 07/22/2025 10:34 AM EDT Oxygen Saturation 100% 07/22/2025 10:34 AM EDT Inhaled Oxygen Concentration - - Weight 82.2 kg (181 lb 3.2 oz) 07/22/2025 10:34 AM EDT Height 162.6 cm (5' 4 ) 07/22/2025 10:34 AM EDT Body Mass Index 31.1 07/22/2025 10:34 AM EDT Plan of Treatment Upcoming Encounters Date Type Department Care Team (Late st Contact Info) Description 08/26/2025 9:30 AM EDT Medication Management [facility] [address] [place] [phone] Samy Baez, KenD [address] [place] [address] 10/22/2025 9:15 AM EST Office Visit [facility] [address] [place] [phone] Mariluz Trevino MD [address] [place] [phone] Health Maintenance Due Date Last Done Comments CT Colonography 1969 FIT DNA/Cologuard 1969 FIT 1969 FOBT 1969 Sigmoidoscopy 1969 Pap Smear 1990 HPV/Cotest 1999 Hepatitis B [...] 08/25/2022 08/24/2019, 11/29 Dental X-Ray: Bitewings 01/12/2023 01/11/20, 08/24/2019, 07/21/2018, Additional history exists DTaP/Tdap/Td Vaccines (2 - Td or Tdap) 12/10/2023 12/10/2013, 12/30/2003 Colonoscopy 06/05/2024 06/05/2019 Colorectal Cancer Screening 06/05/2024 Eye Exam 01/09/2025 01/09/2024 COVID-19 Vaccine ( season) 2025 12/11/2021, 02/20/2021, 01/23/2021 Influenza Vaccine (#1) 2025 01/23/2015, 2013 Diabetes: Hemoglobin A1C 10/22/2025 025, 04/01/2025, 11/19/2024, Additional history exists SDOH Screening 04/08/2026 04/08/2025 Depression Screening 04/15/2026 04/15/2025, 04/15/20 25 Diabetes: Foot Exam 04/15/2026 04/15/2025, 04/15/2025, 04/15/2025, Additional history exists Disability Screening 04/15/2026 04/15/2025 Alcohol/Substance Use Screening 07/22/2026 07/22/2025 Diabetes: Urine Protein Screening 07/22/2026 07/22/2025, 08/13/2024, 08/23/2023, Additional history exists Lipid Panel 07/22/2026 07/22/2025, 10/29, 08/13/2024, Additional history exists Tobacco Screening 07/29/2026 07/29/2025 Mammogram 08/27/2026 08/27/2024, 07/30, 08/16/2022, Additional history exists RSV Patients and Patients Aged 60 years or older (1 - 1-dose 75+ series) 2044 Cervical Cancer Screening Discontinued HIB Vaccines Aged Out No longer eligi ble based on patient's age to complete this topic HIV Screening Discontinued HPV Vaccines Aged Out No longer eligi ble based on patient's age to complete this topic Hepatitis A Vaccines Discontinued Hepatitis C Screening Discontinued IPV Vaccines Aged Out No longer eligi [...] Pressure 136/80(2024 10:34 AM EDT) No Samy Baez, Eulogio Hemoglobin A1c < 7 Result Component 8.1( 10:36 AM EDT) No Samy Baez PharmD Procedures Procedure Name Priority Date/Time Associated Diagnosis Comments VITAMIN D,25-OH,TOTAL,IA Routine 07/22/2025 11:08 AM EDT Vitamin D deficiency TSH W/REFLEX TO FT4 Routine 07/22/2025 1 1:08 AM EDT Acquired hypothyroidism COMPREHENSIVE METABOLIC PANEL Routine 07/22/2025 11:08 AM EDT Type 2 diabetes mellitus with other specified complication, without long-term current use of insulin ([facility]/HCC) ALBUMIN, RANDOM URINE W/CREATININE Routine 07/22/2025 11:08 AM EDT Type 2 diabetes mellitus with other specified complication, without long-term current use of insulin (CMS/HCC) LIPID PANEL WITH REFLEX TO DIRECT LDL Routine 07/22/2025 11:08 AM EDT Dyslipidemia VITAMIN B12/FOLATE, SERUM PANEL Routine 07/22/2025 11:08 AM EDT Type 2 diabetes mellitus with other specified complication, without long-term current use of insulin ([facility]/HCC) XR SHOULDER 2+ VIEWS RIGHT Routine 07/22/2025 10:50 AM EDT Acute pain of right shoulder POCT GLYCOSYLATED HEMOGLOBIN (HGB A1C) Routine 07/22/2025 10:36 AM EDT Type 2 diabetes mellitus with other specified complication, without long-term current use of insulin ([facility]) POCT GLUCOSE Routine 07/22/2025 10:35 AM EDT Type 2 diabetes mellitus with other specified complication, without long-term current use of insulin ([facility]/HCC) BI MAMMOGRAM SCREENING TOMOSYNTHESIS BILATERAL Routine 08/27/2024 7:45 AM EDT HM DIABETES EYE EXAM Routine 01/09/2024 PROPHYLAXIS - ADULT Routine 01/11/2022 1 2:00 AM EST BITEWINGS - 4 RADIOGRAPHIC IMAGES Routine 01/11/2022 12:00 AM EST PERIODIC ORAL EVALUATION - ESTABLISHED PATIENT Routine 01/11/2022 12:00 AM EST INTRAORAL - COMPLETE SERIES OF RADIOGRAPHIC IMAGES Routine 08/24/2019 12:00 AM EDT HM COLONOSCOPY Routine 06/05/2019 from Last 3 Months or Most Recently Relevant to Health Maintenance Results * Vitamin D, 25-Hydroxy, Total, Immunoassay (07/22/2025 11:08 AM EDT) Vitamin D 25-OH Total 40.8 >30 ng/mL [facility] Comment: Health Based Reference Values*< 20 ng/mL Tcmayuokx44-31 ng/mL Insufficient> 30 ng/mL Sufficient*Rea COVARRUBIAS. N Engl J Med. 2007;357:266-280There is no well-established upper level of normal vitamin Dlevels. Some laboratories use 50 ng/mL as an upper limit ofnormal. However, toxicity is patient-dependent and may occurat any level. Careful correlation with the patient'spresentation is necessary and, if there is concern forvitamin D toxicity, treatment should be consideredirrespective of the serum level.Care must be taken in interpreting Vitamin D results fromdifferent laboratories and methodologies. Published datademonstrated that results from patients undergoinghemodialysis may show a negative bias when tested withvarious automated 25-OH vitamin D assays when compared toLC-MS/MS.When testing samples from patients whose predominant form ofVitamin D is Vitamin D2, such as patients receiving VitaminD2 supplementation, results that are subtherapeutic shouldbe confirmed with another method such as LC-MS/MS. Blood Venous blood specimen / Unknown 07/22/2025 11:08 AM EDT 07/22/2025 1:28 PM EDT us Mariluz Trevino MD LAB BLOOD ORDERABLES Final Resul t [facility] [address] [place] [address] [phone] * Vitamin B12 (Cobalamin) and Folate Panel, Serum (07/22/2025 11:08 AM EDT) Vitamin B12 452 200 - 900 pg/mL [facility] Comment:NORMAL 200-900 PG/ML INDETERMINATE 160-199 PG/ML DEFICIENT < 160 PG/ML Folate 10.3 > or = 4.0 ng/mL [facility] Comment:Reference Values:> o r = 4.0 ng/mL< 4.0 ng/mL suggests folate deficiency Methotrexate, aminopterin and folinic acid(leucovorin) are chemotherapeutic agents whose molecularstructures are similar to folate; therefore, the Architectfolate assay cannot be used for patients using these drugs. Blood 07/22/2025 11:0 8 AM EDT 07/22/2025 1:28 PM EDT Mariluz Trevino MD LAB BLOOD ORDERABLES Final Resul t Performing Organization Address City/[facility] Co de Phone Number [facility] [address] [place] [phone] * TSH with Reflex to Free T4 (07/22/2025 11:08 AM EDT) TSH reflex Free T4 3.94 0.32 - 4.0 uIU/mL [facility] Blood 07/22/2025 11:0 8 AM EDT 07/22/2025 1:28 PM EDT Mariluz Trevino MD LAB BLOOD ORDERABLES Final Resul t Performing Organization Address [facility] Co de Phone Number [facility] [address] [place] [phone] * (ABNORMAL) Lipid Panel with Reflex to Direct LDL (07/22/2025 11:08 AM EDT) Triglycerides 196(H) <150 mg/dL [facility] Comment:Desirable Triglyceri de: less than 150 mg/dLBorderline High Triglyceride 150-199 mg/dLHigh Triglyceride: 200-499 mg/dLVery High Triglyceride: greater than or equal to 5OO mg/dL Cholesterol 172 <200 mg/dL [facility] Comment:Desirable Cholestero l: less than 200 mg/dLBorderline High Cholesterol: 200-239 mg/dLHigh Cholesterol: greater than 239 mg/dL LDL Cholesterol Calculated 94 <100 mg/dL [facility] Comment:Desirable LDL: less than 100 mg/dLNear Optimal/Above Optimal LDL: 110- 129 mg/dLBorderline High LDL: 130-159 mg/dLHigh LDL: 160-189 mg/dLVery High LDL: greater than or equal to 190 mg/dL HDL Cholesterol 39(L) >40 mg/dL [facility] Comment:Desirable HDL: great er than 40 mg/dL Note: This HDL assay may give artificially low results in patients with liver disease. Blood 07/22/2025 11:0 8 AM EDT 07/22/2025 1:28 PM EDT Mariluz Trevino MD LAB BLOOD ORDERABLES Final Resul t Performing Organization Address City/[facility]/ZIP Co de Phone Number [facility] [address] [place] [phone] * Albumin, Random Urine W/Creatinine (07/22/2025 11:08 AM EDT) Creatinine, Urine 76.35 mg/dL [facility] Microalbumin Urine 14.0 mg/L [facility] Microalbum Creatinine Ratio Ur 18.3 <30 ug/mg cr [facility] Comment:Albumin/Creatinine R atio Reference Ranges: Normal: < 30 ug/mg creatinine Microalbuminuria: 30 - 300 ug/mg creatinineClinical Albuminuria: > 300 ug/mg creatinine Urine 07/22/2025 11:0 8 AM EDT 07/22/2025 12:58 PM EDT Mariluz Trevino MD LAB URINE ORDERABLES Final Resul t Performing Organization Address [facility]/ZIP Co de Phone Number [facility] [address] [place] [phone] * (ABNORMAL) Comprehensive Metabolic Panel (07/22/2025 11:08 AM EDT) Sodium 138 135 - 145 mmol/L [facility] Potassium 4.1 3.3 - 5.1 mmol/L [facility] Chloride 104 96 - 108 mmol/L [facility] Carbon Dioxide 24 22 - 29 mmol/L [facility] Anion Gap 14 12 - 20 [facility] Urea Nitrogen (BUN) 17(H) 9 - 16 mg/dL [facility] Creatinine, Serum 0.86 0.5 - 1.4 mg/dL [facility] Estimated Glomerular Filt Rate >60 [facility] Comment:Chronic Kidney Disea se: Estimated GFR < 60 mL/min/1.44x7Udkhtd Kidney Disease: Estimated GFR < 15 mL/min/1.73m2 Glucose 166(H) 60 - 115 mg/dL [facility] Calcium 9.6 8.4 - 10.2 mg/dL [facility] Bilirubin, Total 0.4 0.0 - 1.0 mg/dL [facility] Aspartate Amino Transferase 26 5 - 31 U/L [facility] Alanine Aminotransferase 19 0 - 31 U/L [facility] Total Protein 8.0 6.5 - 8.0 g/dL [facility] Albumin Level 4.6 3.5 - 5.0 g/dL [facility] Alkaline Phosphatase 102 39 - 117 U/L [facility] Blood Venous blood specimen / Unknown 07/22/2025 11:08 AM EDT 07/22/2025 1:28 PM EDT us Mariluz Trevino MD LAB BLOOD ORDERABLES Final Resul t [facility] [address] [place] [phone] * XR Shoulder 2+ Views Right (07/22/2025 10:50 AM EDT) Anatomical Region Laterality Modality Upper Extremities, Shoulder Right Radi ographic Imaging 07/22/2025 10:5 0 AM EDT Narrative 07/22/2025 12:13 PM EDT [address] [address] XRay Report Signed Patient: Luh Bennett MR#: [id number] : 1970 Acct:[id number] Age/Sex: 55 / F ADM Date: 07/22/25 [facility]: Mariluz Trevino MD Ordering Physician: Mariluz Trevino MD Date of Service: 07/22/25 Procedure(s): XR shoulder RT min 2V Accession Number(s): [id number] cc: Mariluz Trevino MD EXAMINATION: XR SHOULDER, RIGHT CLINICAL INFORMATION: right shoulder pain, posterior. Limited internal rotation. COMPARISON: None available. TECHNIQUE: AP external rotation, Grashey, scapular Y, and axillary views of the right shoulder. FINDINGS: Normal bone mineralization. No fracture, dislocation, or suspicious bone lesion. Normal alignment. The glenohumeral joint is normal. The AC joint is normal. There is a neutral lateral acromion. No undersurface spurring. The subacromial space is preserved. Remainder of the soft tissue and bony structures appear normal. XR/XR shoulder RT min 2V IMPRESSION: Normal right shoulder. Electronically signed by: Srikanth Don MD 07/22/2025 12:10 PM EDT Dictated By: Srikanth Don MD Signed By: <Electronically signed by Srikanth Don MD in OV> 07/22/25 1210 DD/ 1050 TD/TT: 07/22/25 1100 Stacker Operator: Procedure Note Donotuseinterpreter, Image - 07/22/2025 [place] [address] XRay Report Signed Patient: Luh Bennett#: [id number] : 1970Acct:[id number] Age/Sex: 55 / FADM Date: 07/22/25 Loc: [facility] Attending Dr: Mariluz Trevino MD Ordering Physician: Mariluz Trevino MD Date of Service: 07/22/25 Procedure(s): XR shoulder RT min 2V Accession Number(s): [id number] cc: Mariluz Trevino MD EXAMINATION: XR SHOULDER, RIGHT CLINICAL INFORMATION: right shoulder pain, posterior. Limited internal rotation. COMPARISON: None available. TECHNIQUE: AP external rotation, Grashey, scapular Y, and axillary views of the right shoulder. FINDINGS: Normal bone mineralization. No fracture, dislocation, or suspicious bone lesion. Normal alignment. The glenohumeral joint is normal. The AC joint is normal. There is a neutral lateral acromion. No undersurface spurring. The subacromial space is preserved. Remainder of the soft tissue and bony structures appear normal. XR/XR shoulder RT min 2V IMPRESSION: Normal right shoulder. Electronically signed by: Srikanth Don MD 07/22/2025 12:10 PM EDT RP Workstation: [id number] Dictated By: Srikanth Don MD Signed By: <Electronically signed by Srikanth Don MD in OV> 07/22/25 1210 DD/ 1050 TD/TT: 07/22/25 1100 Stacker Operator: Mariluz Trevino MD IMG XR PROCEDURES Final Result * (ABNORMAL) POCT glycosylated hemoglobin (Hgb A1c) (07/22/2025 10:36 AM EDT) Hemoglobin A1C 8.1(A) 4.0 - 5.7 % QC Media Lot # [id number] Lot# Expiration Date , Blood Capillary blood specimen / Unknown 07/22/2025 10:36 AM EDT Mariluz Trevino MD POINT OF CARE TEST ENTER/EDIT OR DERABLES Final Result * POCT glucose manually resulted (07/22/2025 10:35 AM EDT) Glucose Blood, POC 169 60 - 200 mg/dL QC Media Lot # [id number] Lot# Expiration Date 505 Blood Capillary blood specimen / Unknown 07/22/2025 10:35 AM EDT us Mariluz Trevino MD POINT OF CARE TEST ENTER/EDIT OR DERABLES Final Result * BI Mammogram Screening Tomosynthesis Bilateral (08/27/2024 7:45 AM EDT) Anatomical Region Laterality Modality Breast Bilateral Mammography 08/27/2024 7:45 AM EDT Narrative 09/06/2024 6:39 PM EDT [facility] [address] [place] [address] Mammography Report Signed Patient: Luh Bennett MR#: [id number] : 1970 Acct:[id number] Age/Sex: 54 / F ADM Date: 08/27/24 Loc: HO.MAMMO Attending Dr: Mariluz Trevino MD Ordering Physician: Mariluz Trevino MD Results: 1Negative Date of Service: 08/27/24 Follow Up: 1 Year From Orig inal Mammogram Procedure(s): MM tomosynthesis screening BI Accession Number(s): [id number] cc: Mariluz Trevino MD EXAMINATION: MM SCREENING [...] Eli Chandra DO 09/06/2024 06:35 PM EDT Dictated By: Eli Chandra DO Signed By: <Electronically signed by Eli Chandra DO in OV> 09/06/24 1835 DD/ 0745 TD/TT: 08/27/24 0810 Stacker Operator: Procedure Note Donotuseinterpreter, Image - 09/06/2024 [facility] [address] [place], [place] [address] Mammography Report Signed Patient: Codie Bennett#: [id number] : 1970Acct:[id number] Age/Sex: 54 / FADM Date: 08/27/24 Loc: HO.MAMMO Attending Dr: Mariluz Trevino MD Ordering Physician: Mariluz Trevino MDResults: 1Negative Date of Service: 08/27/24Follow Up: 1 Year From Orig ina Mammogram Procedure(s): MM tomosynthesis screening BI Accession Number(s): [id number] cc: Mariluz Trevino MD EXAMINATION: MM SCREENING [...] Eli Chandra DO 09/06/2024 06:35 PM EDT Dictated By: Eli Chandra DO Signed By: <Electronically signed by Eli Chandra DO in OV> 09/06/24 1835 DD/ 0745 TD/TT: 08/27/24 0810 Stacker Operator: Mariluz Trevino MD IMG BI PROCEDURES Edited Result - Final * Hm Diabetes Eye Exam (01/09/2024) Eye Exam Normal Normal, BIRADS 0 , BIRADS 1 , BIRADS 2, BIRADS 3 , BIRADS 4+ Historical Provider HEALTH MAINTENANCE Final Result * Colonoscopy (06/05/2019) Colonoscopy Normal Normal 06/05/2019 Historical Provider HEALTH MAINTENANCE Final Result from Last 3 Months or Most Recently Relevant to Health Maintenance [place] [place] [address] [employer] 3 Care Teams Hide Buffer Relationship Specialty Start Date End Date Mariluz Trevino MD [address] [place] [address] PCP - General Family Medicine 11/09/12 Samy Baez, KenD [address] [place] [address] Pharmacist Internal Medicine 07/20/24
--- OUTSIDE RECORDS SUMMARY | 2025-08-19 13:27 | XMS_ITS | Encounter Summary ---
Author Organization [employer] Address [address] [facility] 7t [place] [address] Care Team Providers Care Sand Blaster Name Role Phone Mariluz Trevino MD Primary Care Provider [phone] Samy Baez PharmD Unavailable [phone] Reason for Referral * Consultation (Routine) - Closed Specialty Diagnoses / Procedures Referred By Contac t Referred To Contact Pharmacy Diagnoses Type 2 diabetes mellitus with other specified complication, without long-term current use of insulin (CMS/HCC) Primary hypertension Mariluz Trevino MD [address] [place] [address] Phone: tel: fax: Referral ID Status Reason Start Date Expiration Date V isits Requested Visits Authorized [id number] Closed Consult and Treat 05/14/2024 05/14/2025 1 1 Encounter Details Date Type Department Care Team (Late st Contact Info) Description 05/14/2024 Orders Only [facility] [address] [place], [place] [phone] Mariluz Trevino MD [address] [place], [place] [phone] Type 2 diabetes mellitus with other specified [...] Description 08/26/2025 9:30 AM EDT Medication Management [facility] [address] [place] [phone] Samy Baez, KenD [address] [place] [phone] 10/22/2025 9:15 AM EST Office Visit [facility] [address] [place] [address] [phone] Mariluz Trevino MD [address] [place] [phone] Scheduled Referrals Name Type Priority Associated Diagnoses Orde r Schedule Referral to Pharmacy CDTM Outpatient Referral Routine Type 2 diabetes mellitus with other specified complication, without long-term current use of insulin ([facility]) Primary hypertension Ordered: 05/14/2024 documented as of this encounter Visit Diagnoses Diagnosis Type 2 diabetes mellitus with other specified complication, without long-term current use of insulin ([facility])- Primary Primary hypertension Unspecified essential hypertension documented in this encounter Additional Health Concerns Assessment Noted Time PHQ-9 Depression Total Score: 0 11/08/20 23 1:24 PM EST documented as of this encounter Care Teams Sand Blaster Relationship Specialty Start Date End Date Mariluz Trevino MD [address] [place] [address] PCP - General Family Medicine 11/09/12 Samy Baez, KenD [address] [place] [address] Pharmacist Internal Medicine 07/20/24 documented as of this encounter
--- OUTSIDE RECORDS SUMMARY | 2025-08-19 13:27 | XMS_ITS | Encounter Summary ---
Author Organization [facility] Address [address] [place] [address] 7t [place] [address] Care Team Providers Care Hr Business Partner Consultant Name Role Phone Mariluz Trevino MD Primary Care Provider [phone] Samy Baez PharmD Unavailable [phone] Encounter Details Date Type Department Care Team (Latest Contact Info) Description 08/24/2019 Abstract [facility] CONVERSIONS Dental, Provider, DDS Social History Tobacco [...] Description 08/26/2025 9:30 AM EDT Medication Management [facility] [address] [place] [phone] Samy Baez, PharmD [address] [place] [address] 10/22/2025 9:15 AM EST Office Visit [facility] [address] [place] [address] Mariluz Trevino MD [address] [place] [address] documented as of this encounter Visit Diagnoses Not on filedocumented in this encounter Care Teams Hr Business Partner Consultant Relationship Specialty Start Date End Date Mariluz Trevino MD [address] [place] [phone] PCP - General Family Medicine 11/09/12 Samy Baez, Eulogio [address] [place] [phone] Pharmacist Internal Medicine 07/20/24 documented as of this encounter
--- OUTSIDE RECORDS SUMMARY | 2025-08-19 13:27 | XMS_ITS | Encounter Summary ---
Author Organization [employer] Address [address] [facility] 7t [place] [address] Care Team Providers Care Cylinder Filler Name Role Phone Mariluz Trevino MD Primary Care Provider [phone] Samy Baez PharmD Unavailable [phone] Reason for Visit * Reason Onset Date Comments Appointment Request 02/06/2025 Encounter Details Date Type Department Care Team ([facility] st Contact Info) Description 02/06/2025 Telephone [facility] [address] [place], [place] [phone] Mariluz Trevino MD [address] [place], [place] [phone] Appointment Request Social History Tobacco Use Types [...] Description 08/26/2025 9:30 AM EDT Medication Management [facility] [address] [place] [phone] Samy Baez PharmD [address] [place] [address] 10/22/2025 9:15 AM EST Office Visit [facility] [address] [place] [address] Mariluz Trevino MD [address] [place] [address] documented as of this encounter Goals Goal Patient Goal Type Associated Problems Recent Progress Patient-Stated? Author Blood Pressure < 140/90 Blood Pressure 136/80(2024 10:34 AM EDT) No Samy Baez, PharmElzbieta Hemoglobin A1c < 7 Result Component 8.1( 10:36 AM EDT) No Samy Baez PharmD documented as of this encounter Visit Diagnoses Not on filedocumented in this encounter Additional Health Concerns Assessment Noted Time PHQ-9 Depression Total Score: 0 11/08/20 23 1:24 PM EST documented as of this encounter Care Teams Cylinder Filler Relationship Specialty Start Date End Date Mariluz Trevino MD [address] [place] [address] PCP - General Family Medicine 11/09/12 Samy Baez, KenD [address] [place] [address] Pharmacist Internal Medicine 07/20/24 documented as of this encounter
--- OUTSIDE RECORDS SUMMARY | 2025-08-19 13:27 | XMS_ITS | Encounter Summary ---
Author Organization [email or web address] Address [address] [place] [address] 7t [place] [address] Care Team Providers Care Share Holder Name Role Phone Mariluz Trevino MD Primary Care Provider [phone] Samy Baez PharmD Unavailable [phone] Encounter Details Date Type Department Care Team (Late Contact Info) Description 03/22/2023 Orders Only [address] [phone] Mariluz Trevino MD [address] [place] [address] [phone] Type 2 diabetes mellitus with other specified complication, without long-term current use of insulin ([facility]) (Primary Dx); Acquired hypothyroidism; Dyslipidemia; Primary hypertension [...] Description 08/26/2025 9:30 AM EDT Medication Management [facility] [address] [place] [address] [phone] Samy Baez, PharmD [address] [place] [address] 10/22/2025 9:15 AM EST Office Visit [facility] [address] [place] [address] Mariluz Trevino MD [address] [place] [address] Scheduled Orders Name Type Priority Associated Diagnoses [...] long-term current use of insulin (CMS/HCC)- Primary Acquired hypothyroidism Unspecified hypothyroidism Dyslipidemia Other and unspecified hyperlipidemia Primary hypertension Unspecified essential hypertension documented in this encounter Care Teams Share Holder Relationship Specialty Start Date End Date Mariluz Trevino MD [address] [place] [address] PCP - General Family Medicine 11/09/12 Samy Baez, PharmD [address] [place] [address] Pharmacist Internal Medicine 07/20/24 documented as of this encounter
--- OUTSIDE RECORDS SUMMARY | 2025-08-19 13:27 | XMS_ITS | Encounter Summary ---
Author Organization [email or web address] Address [address] [place] [address] 7t [place] [address] Care Team Providers Care Direct Support Worker Name Role Phone Mariluz Trevino MD Primary Care Provider [phone] Samy Baez PharmD Unavailable [phone] Encounter Details Date Type Department Care Team (Late st Contact Info) Description 01/24/2023 Orders Only [facility] [address] [place], [place] [phone] Allyssa Jefferson LPN Social History Tobacco Use [...] Description 08/26/2025 9:30 AM EDT Medication Management [facility] [address] [place] [phone] Samy Baez, PharmD [address] [place] [address] 10/22/2025 9:15 AM EST Office Visit [facility] [address] [place] [address] [phone] Mariluz Trevino MD [address] [place] [address] documented as of this encounter Visit Diagnoses Not on filedocumented in this encounter Care Teams Direct Support Worker Relationship Specialty Start Date End Date Mariluz Trevino MD [address] [place], [place] [phone] PCP - General Family Medicine 11/09/12 Samy Baez, Eulogio [address] [place] [address] Pharmacist Internal Medicine 07/20/24 documented as of this encounter
--- OUTSIDE RECORDS SUMMARY | 2025-08-19 13:27 | XMS_ITS | Encounter Summary ---
Author Organization [employer] Address [address] [facility] 7t [place] [address] Care Team Providers Care Planner Chief Name Role Phone Mariluz Trevino MD Primary Care Provider [phone] Samy Baez PharmD Unavailable [phone] Reason for Visit * Reason Comments Med Refill Encounter Details Date Type Department Care Team ([facility] st Contact Info) Description 11/07/2023 Refill [facility] [address] [place], [place] [phone] Mamta Ramires MD [address] [place] [address] Type 2 diabetes mellitus with hyperglycemia, with long-term current use of insulin ([facility]) Social History Tobacco Use Types Packs/Day Years [...] Description 08/26/2025 9:30 AM EDT Medication Management [facility] [address] [place] [phone] Samy Baez, Eulogio [address] [place] [address] 10/22/2025 9:15 AM EST Office Visit [address] [address] Mariluz Trevino MD [address] [place] [address] documented as of this encounter Visit Diagnoses Diagnosis Type 2 diabetes mellitus with hyperglycemia, with long-term current use of insulin ([facility]) documented in this encounter Care Teams Planner Chief Relationship Specialty Start Date End Date Mariluz Trevino MD [address] [place] [address] PCP - General Family Medicine 11/09/12 Samy Baez, PharmD [address] [place] [address] Pharmacist Internal Medicine 07/20/24 documented as of this encounter
--- OUTSIDE RECORDS SUMMARY | 2025-08-19 13:27 | XMS_ITS | Encounter Summary ---
Author Organization [employer] Address [address] [place] [address] 7t [place] [address] Care Team Providers Care Director Data Name Role Phone Mariluz Trevino MD Primary Care Provider [phone] Samy Baez PharmD Unavailable [phone] Encounter Details Date Type Department Care Team (Late st Contact Info) Description 02/21/2023 Orders Only [facility] [address] [place], [place] [phone] Allyssa Jefferson LPN Social History Tobacco Use [...] Description 08/26/2025 9:30 AM EDT Medication Management [facility] [address] [place] [phone] Samy Baez, PharmD [address] [place] [address] 10/22/2025 9:15 AM EST Office Visit [facility] [address] [place] [address] [phone] Mariluz Trevino MD [address] [place] [address] documented as of this encounter Visit Diagnoses Not on filedocumented in this encounter Care Teams Director Data Relationship Specialty Start Date End Date Mariluz Trevino MD [address] [place], [place] [phone] PCP - General Family Medicine 11/09/12 Samy Baez, Eulogio [address] [place] [address] Pharmacist Internal Medicine 07/20/24 documented as of this encounter
--- OUTSIDE RECORDS SUMMARY | 2025-08-19 13:27 | XMS_ITS | Encounter Summary ---
Author Organization [email or web address] Address [address] [place] [address] 7t [place] [address] Care Team Providers Care Surgical Garment Fitter Name Role Phone Mariluz Trevino MD Primary Care Provider [phone] Samy Baez PharmD Unavailable [phone] Reason for Visit * Reason Comments Med Refill Encounter Details Date Type Department Care Team (Late st Contact Info) Description 06/27/2023 Refill [facility] [address] [place] [address] [phone] Mariluz Trevino MD [address] [place] [address] [phone] Type 2 diabetes mellitus with other specified complication, without long-term current use of insulin ([facility]); Hypertriglyceridemia Social History Tobacco Use Types Packs/Day [...] Description 08/26/2025 9:30 AM EDT Medication Management [facility] [address] [place] [address] [phone] Samy Baez, PharmD [address] [place] [address] 10/22/2025 9:15 AM EST Office Visit [facility] [address] [place] [address] [phone] Mariluz Trevino MD [address] [place] [phone] documented as of this encounter Visit Diagnoses Diagnosis Type 2 diabetes mellitus with other specified complication, without long-term current use of insulin ([facility]) Hypertriglyceridemia Pure hyperglyceridemia documented in this encounter Care Teams Surgical Garment Fitter Relationship Specialty Start Date End Date Mariluz Trevino MD [address] [place] [address] PCP - General Family Medicine 11/09/12 Samy Baez, KenD [address] [place] [address] [phone] Pharmacist Internal Medicine 07/20/24 documented as of this encounter
== END 2025-08-19 11:50 | disposition home or self-care (01) ==
PROVIDERS: PCP Family Medicine; Visit Provider Nurse Practitioner Family
DX: Z01.818 Encounter for other preprocedural examination (principal); Z12.11 Encounter for screening for malignant neoplasm of colon
CPT/HCPCS: 99203

== ENCOUNTER → 2025-08-19 10:51 | Outpatient (BNVA) | payer OTHER, SELFPAY | PROVIDERS: PCP Family Medicine; Visit Provider Nurse Practitioner Family | DX: Z01.818 Encounter for other preprocedural examination (principal) | CPT/HCPCS: 99202 ==

== ENCOUNTER 2025-11-04 14:15 | Outpatient (REF) | payer OTHER, SELFPAY ==
--- NOTE | ~2025-11-04 | MM_ITS ---
EXAMINATION: MM SCREENING DIGITAL BREAST TOMOSYNTHESIS, BILATERAL CLINICAL INFORMATION: Screening. Asymptomatic. COMPARISON: Comparison made to multiple prior, most recent August 27, 2024, and most remote February 15, 2017. TECHNIQUE: Digital breast tomosynthesis is performed in mediolateral oblique and craniocaudal views along with computer-aided detection (CAD). Synthesized 2D images are generated from the tomosynthesis. FINDINGS: BREAST COMPOSITION: The breasts are heterogeneously dense, which may obscure small masses. BILATERAL BREASTS: No significant masses, suspicious calcifications or other abnormalities are seen in either breast. MM/MM tomosynthesis screening BI IMPRESSION: BILATERAL BREASTS: Negative, no mammographic evidence of malignancy. Normal interval follow-up is recommended in 12 months. ASSESSMENT: BI-RADS: Category 1: Negative RECOMMENDATION: Routine annual mammography screening. FOLLOW-UP: 1 year F/U This examination should not preclude the clinical evaluation of a suspicious palpable abnormality. This patient's information was entered into a reminder system with a target due date for their next mammogram. Electronically signed by: Michelle Puga MD 11/04/2025 08:30 PM [facility]
--- OUTSIDE RECORDS SUMMARY | 2025-11-04 23:10 | XMS_ITS | Encounter Summary ---
Author Organization [facility] Address [address] [place] [address] [address] [place] [address] Care Team Providers Care Library Circulation Clerk Name Role Phone Mariluz Trevino MD Primary Care Provider [phone] Samy Baez PharmD Unavailable [phone] Encounter Details Date Type Department Care Team (Latest Contact Info) Description 08/24/2019 Abstract [facility] CONVERSIONS Dental, Provider, DDS Social History [...] Care Team (Late st Contact Info) Description 12/02/2025 9:00 AM EST Medication Management [facility] MEDICINE [address] [place] [address] Samy Baez, PharmD [address] [place] [address] documented as of this encounter Visit Diagnoses Not on filedocumented in this encounter Care Teams Library Circulation Clerk Relationship Specialty Start Date End Date Mariluz Trevino MD [address] [place] [address] PCP - General Family Medicine 11/09/12 Samy Baez, PharmD [address] [place] [phone] Pharmacist Internal Medicine 07/20/24 documented as of this encounter
--- OUTSIDE RECORDS SUMMARY | 2025-11-04 23:10 | XMS_ITS | Encounter Summary ---
Author Organization [facility] Address [address] [place] [address] 7[address] [place] [address] Care Team Providers Care [employer] Principal Name Role Phone Mariluz Trevino MD Primary Care Provider [phone] Samy Baez PharmD Unavailable [phone] Encounter Details Date Type Department Care Team [...] Description 12/02/2025 9:00 AM EST Medication Management [facility] MEDICINE [address] [place] [address] Samy Baez, PharmD [address] [place] [address] documented as of this encounter Visit Diagnoses Not on filedocumented in this encounter Care Teams [employer] Principal Relationship Specialty Start Date End Date Mariluz Trevino MD [address] [place], [place] PCP - General Family Medicine 11/09/12 Samy Baez, PharmD [address] [place] [address] Pharmacist Internal Medicine 07/20/24 documented as of this encounter
--- OUTSIDE RECORDS SUMMARY | 2025-11-04 23:10 | XMS_ITS | Encounter Summary ---
Author Organization [employer] Address [address] [place] [address] 7t [place] [address] Care Team Providers Care Commissary Assistant Name Role Phone Mariluz Trevino MD Primary Care Provider [phone] Samy Baez PharmD Unavailable [phone] Encounter Details Date Type Department Care Team (Late Contact Info) Description 03/22/2023 Orders Only [facility] [address] [place] [phone] Mariluz Trevino MD [address] [place] [address] [phone] Type 2 diabetes mellitus with other specified complication, without long-term current use of insulin ([facility]) (Primary Dx); Acquired hypothyroidism; Dyslipidemia; Primary [...] Description 12/02/2025 9:00 AM EST Medication Management [facility] [address] [place] [address] [phone] Samy Baez, PharmD [address] [place], [place] [phone] Scheduled Orders Name Type Priority Associated Diagnoses [...] complication, without long-term current use of insulin ([facility])- Primary Acquired hypothyroidism Unspecified hypothyroidism Dyslipidemia Other and unspecified hyperlipidemia Primary hypertension Unspecified essential hypertension documented in this encounter Care Teams Commissary Assistant Relationship Specialty Start Date End Date Mariluz Trevino MD [address] [place] [address] PCP - General Family Medicine 11/09/12 Samy Baez, Eulogio [address] [place] [address] Pharmacist Internal Medicine 07/20/24 documented as of this encounter
--- OUTSIDE RECORDS SUMMARY | 2025-11-04 23:10 | XMS_ITS | Encounter Summary ---
Author Organization [employer] Address [address] [place] [address] [address] [place] [address] Care Team Providers Care Residential Carpet Installer Name Role Phone Mariluz Trevino MD Primary Care Provider [phone] Samy Baez PharmD Unavailable [phone] Encounter Details Date Type Department Care Team (Late st Contact Info) Description 01/24/2023 Orders Only [facility] MED & PEDS [address] [place], [place] [phone] Allyssa Jefferson LPN Social History Tobacco Use [...] Description 12/02/2025 9:00 AM EST Medication Management [facility] MEDICINE [address] [place] [address] Samy Baez, PharmD [address] [place] [address] documented as of this encounter Visit Diagnoses Not on filedocumented in this encounter Care Teams Residential Carpet Installer Relationship Specialty Start Date End Date Mariluz Trevino MD [address] [place] [address] PCP - General Family Medicine 11/09/12 BaezSamy PharmD [address] [place] [phone] Pharmacist Internal Medicine 07/20/24 documented as of this encounter
--- OUTSIDE RECORDS SUMMARY | 2025-11-04 23:10 | XMS_ITS | Encounter Summary ---
Author Organization [employer] Address [address] [place] [address] [address] [place] [address] Care Team Providers Care Assistant Elementary Teacher Name Role Phone Mariluz Trevino MD Primary Care Provider [phone] Samy Baez PharmD Unavailable [phone] Encounter Details Date Type Department Care Team (Late st Contact Info) Description 02/21/2023 Orders Only [facility] CHC MED & PEDS [address] [place], [place] [phone] Allyssa Jefferson LPN Social History Tobacco Use [...] Description 12/02/2025 9:00 AM EST Medication Management [facility] MEDICINE [address] [place] [address] Samy Baez, PharmD [address] [place] [address] documented as of this encounter Visit Diagnoses Not on filedocumented in this encounter Care Teams Assistant Elementary Teacher Relationship Specialty Start Date End Date Mariluz Trevino MD [address] [place] [address] PCP - General Family Medicine 11/09/12 BaezSamy PharmD [address] [place] [address] Pharmacist Internal Medicine 07/20/24 documented as of this encounter
--- OUTSIDE RECORDS SUMMARY | 2025-11-04 23:10 | XMS_ITS | Encounter Summary ---
Author Organization [employer] Address [address] [facility] 7t [place] [address] Care Team Providers Care Pricing/Signage Team Member Name Role Phone Mariluz Trevino MD Primary Care Provider [phone] Samy Baez PharmD Unavailable Reason for Referral * Consultation (Routine) - Closed Specialty Diagnoses / Procedures Referred By Contac t Referred To Contact Pharmacy Diagnoses Type 2 diabetes mellitus with other specified complication, without long-term current use of insulin (HCC) Primary hypertension Mariluz Trevino MD [address] [place] [address] Phone: tel: fax: Referral ID Status Reason Start Date Expiration Date V isits Requested Visits Authorized [id number] Closed Consult and Treat 10/09/2024 10/09/2025 6 6 Encounter Details Date Type Department Care Team (Late st Contact Info) Description 10/09/2024 Orders Only [facility] MEDICINE [address] [place], [place] [phone] Mariluz Trevino MD [address] [place], [place] [phone] Type 2 diabetes mellitus with other specified [...] 12/02/2025 9:00 AM EST Medication Management [facility] MEDICINE [address] [place] [address] Samy Baez, KenD [address] [place] [address] Scheduled Referrals Name Type Priority Associated Diagnoses Orde r Schedule Referral to Pharmacy CDTM Outpatient Referral Routine Type 2 diabetes mellitus with other specified complication, without long-term current use of insulin ([facility]) Primary hypertension Ordered: 10/09/2024 documented as of this encounter Goals Goal Patient Goal Type Associated Problems Recent Progress Patient-Stated? Author Blood Pressure < 140/90 Blood Pressure 138/90(2024 9:20 AM EST) No Samy Baez, PharmD Hemoglobin A1c < 7 Result Component 7.5( 5 9:28 AM EST) No Samy Baez PharmD documented as of this encounter Visit Diagnoses Diagnosis Type 2 diabetes mellitus with other specified complication, without long-term current use of insulin (HCC)- Primary Primary hypertension Unspecified essential hypertension documented in this encounter Additional Health Concerns Assessment Noted Time PHQ-9 Depression Total Score: 0 11/08/20 23 1:24 PM EST documented as of this encounter Care Teams Pricing/Signage Team Member Relationship Specialty Start Date End Date Mariluz Trevino MD [address] [place] [phone] PCP - General Family Medicine 11/09/12 Samy Baez PharmD [address] [place] [phone] Pharmacist Internal Medicine 07/20/24 documented as of this encounter
--- OUTSIDE RECORDS SUMMARY | 2025-11-04 23:10 | XMS_ITS | Encounter Summary ---
Author Organization [employer] Address [address] [facility] 7t [place] [address] Care Team Providers Care Nutrition Professor Name Role Phone Mariluz Trevino MD Primary Care Provider [phone] Samy Baez PharmD Unavailable [phone] Reason for Referral * Consultation (Routine) - Closed Specialty Diagnoses / Procedures Referred By Contac t Referred To Contact Pharmacy Diagnoses Type 2 diabetes mellitus with other specified complication, without long-term current use of insulin (HCC) Primary hypertension Mariluz Trevino MD [address] [place] [address] Phone: tel: fax: Referral ID Status Reason Start Date Expiration Date V isits Requested Visits Authorized [id number] Closed Consult and Treat 05/14/2024 05/14/2025 1 1 Encounter Details Date Type Department Care Team (Late st Contact Info) Description 05/14/2024 Orders Only [facility] MEDICINE [address] [place], [place] [phone] Mariluz Trevino MD [address] [place], [place] [phone] Type 2 diabetes mellitus with other specified [...] Description 12/02/2025 9:00 AM EST Medication Management [facility] MED[facility]INE [address] [place] [address] Samy Baez, PharmD [address] [place] [address] Scheduled Referrals Name Type Priority Associated Diagnoses Orde r Schedule Referral to Pharmacy CDTM Outpatient Referral Routine Type 2 diabetes mellitus with other specified complication, without long-term current use of insulin ([facility]/HCC) Primary hypertension Ordered: 05/14/2024 documented as of this encounter Visit Diagnoses Diagnosis Type 2 diabetes mellitus with other specified complication, without long-term current use of insulin ([facility])- Primary Primary hypertension Unspecified essential hypertension documented in this encounter Additional Health Concerns Assessment Noted Time PHQ-9 Depression Total Score: 0 11/08/20 23 1:24 PM EST documented as of this encounter Care Teams Nutrition Professor Relationship Specialty Start Date End Date Mariluz Trevino MD [address] [place] [address] PCP - General Family Medicine 11/09/12 Samy Baez PharmD [address] [place] [address] Pharmacist Internal Medicine 07/20/24 documented as of this encounter
--- OUTSIDE RECORDS SUMMARY | 2025-11-04 23:10 | XMS_ITS | Clinical Summary ---
Author Organization [employer] Address [address] [facility] [address] [place] [address] Care Team Providers Care Toe Stapler Name Role Phone Mariluz Trevino MD Primary Care Provider [phone] Samy Baez PharmD Unavailable [phone] Allergies No known active allergies Medications Blood Glucose Monitoring Suppl (FreeStyle Lite) w/Device kit 1 Dose in the morning. 1 kit 1 024 Active glucose blood (FREESTYLE LITE) test stripIndication s:Type 2 diabetes mellitus with other specified complication, without long-term current use of insulin (HCC) Use to check blood sugar once daily 50 each 11 025 Active FreeStyle lancetsIndicati ons:Type 2 diabetes mellitus with other specified complication, without long-term current use of insulin (HCC) 1 each by Other route Once per day. 100 each 3 025 Active acetaminophen (Tylenol Extra Strength) 500 MG tabletIndicatio ns:Chronic pain of both knees Take one or two tablets by mouth every 8 hours as needed for pain or fever. Maximum 6 tablets per day. 90 tablet 1 025 Active losartan (Cozaar) 50 MG tabletIndicatio ns:Primary hypertension Take 1 tablet (50 mg) by mouth in the morning. 90 tablet 3 025 Active aspirin (Aspirin Low Dose) 81 MG EC tabletIndicatio ns:Type 2 diabetes mellitus with other specified complication, without long-term current use of insulin (HCC) TAKE 1 TABLET BY MOUTH EVERY EVENING 90 tablet 3 025 Active metFORMIN XR (Glucophage-XR) 500 MG 24 hr tabletIndicatio ns:Type 2 diabetes mellitus with hyperglycemia, with long-term current use of insulin ([facility]) TAKE 2 TABLETS BY MOUTH TWICE DAILY IN THE MORNING AND EVENING 360 tablet 1 10/22/20 9:53 AM EST Active levothyroxine (Synthroid, Levoxyl) 125 MCG tablet TAKE 1 TABLET BY MOUTH EVERY MORNING 90 tablet 1 Active gabapentin (Neurontin) 100 MG capsuleIndicati ons:Neuropathic pain TAKE 1 CAPSULE BY MOUTH TWICE DAILY IN THE MORNING AND AT BEDTIME 60 capsule 5 10/22/20 9:53 AM EST Active cholecalciferol (Vitamin D-3) 25 MCG tablet TAKE 1 TABLET BY MOUTH EVERY MORNING 90 tablet 3 Active pioglitazone (Actos) 45 MG tabletIndicatio ns:Type 2 diabetes mellitus with other specified complication, without long-term current use of insulin ([facility]) TAKE 1 TABLET BY MOUTH EVERY MORNING 90 tablet 3 Active Mounjaro 7.5 MG/0.5ML solution auto-injectorIn dications:Type 2 diabetes mellitus with other specified complication, without long-term current use of insulin ([facility]) INJECT ONE PEN (=7.5MG) SUBCUTANEOUSLY ONCE A WEEK DIRECTED 2 mL 3 10/22/20 9:53 AM EST Active atorvastatin (Lipitor) 10 MG tablet TAKE 1 TABLET BY MOUTH AT BEDTIME 30 tablet 11 Active Diclofenac Sodium 1 % gel Apply to affected area once or twice daily as needed for pain 150 g 11 10/22/20 10:23 AM EST Active Calcium + Vitamin D3 600-5 MG-MCG tablet TAKE 1 TABLET BY MOUTH TWICE DAILY IN THE MORNING AND IN THE EVENING 180 tablet 3 Active Calcium + Vitamin D3 600-5 MG-MCG tablet TAKE 1 TABLET BY MOUTH TWICE DAILY IN THE MORNING AND IN THE EVENING 180 tablet 3 024 2024 Discontinued Active Problems Problem Noted Date Diagnosed Date Chronic pain of both knees 07/29/2025 Assessment & Plan (10/22/2025 9:45 AM EST): - 04/15/2025 bilateral knee x-rays showed minimal osteoarthrosis medial and patellofemoral compartments. - Right worse than left - Continue judicious use of NSAIDs/APAP - Consider topical medications - Referred to physical therapy Assessment & Plan (07/29/2025 5:37 PM EDT): - 04/15/2025 bilateral knee x-rays showed minimal osteoarthrosis medial and patellofemoral compartments. - Continue judicious use of NSAIDs/APAP - Consider topical medications - Referred to physical therapy Chronic right shoulder pain 07/29/2025 Assessment & Plan (10/22/2025 9:50 AM EST): - Right shoulder X-ray on 07/22/25 was normal - Likely tendinitis - Patient is unable to commit to PT due to her work schedule - continue judicious use of analgesic - add topical diclofenac - demonstrated home exercise - patient declined a referral to ortho at this time Health care maintenance 04/19/2025 Assessment & Plan [...] liver disease (MASLD) 08/19/2024 Assessment & Plan (10/22/2025 4:49 AM EST): - CT scan in Oct 2023 showed hepatic steatosis - Last liver test: 07/22/2025 - FIB4 index 0.75, cirrhosis less likely - Last US / elastography - not ordered since low FIB4 index - GI: [facility] seen for colonoscopy only - continue working on lifestyle modifications - continue surveillance study (currently periodic lab, consider when FIB4 index > 1.44 Assessment & Plan (07/29/2025 5:35 PM EDT): - CT scan in Oct 2023 showed hepatic steatosis - Last liver test: 08/13/24 - FIB4 index 0.75, cirrhosis less likely - Last US / elastography - not ordered since low FIB4 index - GI: [facility] [place] for colonoscopy only - continue working [...] ordered since low FIB4 index - GI: [facility] seen for colonoscopy only - continue working [...] ordered since low FIB4 index - GI: [facility] seen for colonoscopy only - continue working on lifestyle modifications - continue surveillance study (currently periodic lab, consider when FIB4 index > 1.44 Disorder of kidney and ureter 05/29/2018 Vitamin D deficiency 05/29/2018 Assessment & Plan (10/22/2025 4:56 AM EST): - currently vitamin D and calcium supplementation - Vitamin D 40.8, normal on 07/22/2025 Assessment & Plan (04/15/2025 4:42 PM EDT): - currently vitamin D and calcium supplementation - will check lab Assessment & Plan (08/26/2024 11:25 AM EDT): - currently vitamin D and calcium supplementation - will check lab Hydroureter 04/05/2017 Assessment & Plan (10/22/2025 4:52 AM EST): - Followed by [facility], last seen in Oct 2023 - Most recent renal US in Nov 2024 showed an enlarged R kidney essentially replaced with cysts and normal left kidney. Assessment & Plan (04/19/2025 5:25 PM EDT): - Followed by [facility], last seen in Oct 2023 - [...] cysts Non-functioning kidney 04/05/2017 Assessment & Plan (10/22/2025 4:52 AM EST): - following with [facility], last seen on 11/07/23 - last renal US in Nov 2024: Diffuse cystic replacement and enlargement of the right kidney. Left kidney appears within normal limits. - right side is replaced with cysts and non-functional - compensated by left kidney - protect left kidney - consider SGLT-2 inhibitor Assessment & Plan (04/19/2025 5:25 PM EDT): - following with [facility], last seen on 11/07/23 - last renal US in Nov 2024: Diffuse cystic replacement and enlargement of the right kidney. Left kidney appears within normal limits. - right side is replaced with cysts and non-functional - compensated by left kidney - protect left kidney - consider SGLT-2 inhibitor Assessment & Plan (05/08/2024 12:23 PM EDT): - following with [facility], last seen on 11/07/23 - right side is replaced with cysts and non-functional - compensated by left kidney - protect left kidney - consider SGLT-2 inhibitor Assessment & Plan (02/07/2024 5:44 AM EDT): - following with [facility], last seen on 11/07/23 - right side is replaced with cysts and non-functional - compensated by left kidney - protect left kidney Assessment & Plan (11/13/2023 5:54 PM EST): - following with [facility], last seen on 10/14/23 - right side is replaced with cysts and non-functional - compensated by left kidney - protect left kidney Assessment & Plan (08/25/2023 8:23 AM EDT): - right side is likely non-functional per urologist - compensated by left kidney Type 2 diabetes mellitus 04/05/2017 Assessment & Plan (10/22/2025 9:49 AM EST): - A1C 7.5% on 10/22/2025, improved from 8.1% on 07/22/25, increase from 7.4% on 04/01/2025 - Continue metformin (ER)1000 mg twice daily. - Continue Actos 45 mg daily. Plan to taper off. - Continue tirzepatide 7.5 mg weekly. Patient would like to continue current dose. - Consider SGLT-2 inhibitor, and/or increase tirzepatide and lower pioglitazone - Treatment Hx: Switched dulaglutide to semaglutide in April 2024. Switched semaglutide to tirzepatide in March 2025 - Improve adherence with medications and SMBG - Work on lifestyle modifications. DM Health Care Maintenance: - Last eye exam: 01/09/24 [facility]. No diabetes mellitus retniopathy. 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 Will request a note - Last foot exam: 04/15/25 Intermediate to high-risk. Impaired sensation. - Last microalbumin test: 07/22/2025 UACR 18.3, history of microalbuminuria, 61.8 in 2022 - Last lipid profile: 07/22/25 TRIG 196; CHOL 172; LDL 94; HDL 39 - Last dental exam: Assessment & Plan (07/29/2025 5:33 PM EDT): [...] Care Maintenance: - Last eye exam: 01/09/24 [facility]. No diabetes mellitus retniopathy. [...] Care Maintenance: - Last eye exam: 01/09/24 [facility]. No diabetes mellitus retniopathy. [...] Care Maintenance: - Last eye exam: 01/09/24 [facility]. No diabetes mellitus retniopathy. [...] Care Maintenance: - Last eye exam: 01/09/24 [facility]. No diabetes mellitus retniopathy. [...] - Completed Hypertension 10/30/2015 Assessment & Plan (10/22/2025 4:47 AM EST): -Goal BP < 130/80 per ACC/AHA guideline (Treatment threshold >= 130/80) -BP borderline, questionable medication adherence and on-going pain -Continue working on lifestyle modifications -Recommended self-monitoring BP. -Continue current medications: Losartan 50 mg daily -Microalbuminuria and non-functioning R kidney Assessment & Plan (07/21/2025 6:10 PM EDT): [...] problem arises Hypothyroidism 10/30/2015 Assessment & Plan (10/22/2025 4:49 AM EST): - Most recent thyroid function test: 07/22/2025 TSH 3.94 - Current replacement: levothyroxine 125 mcg daily - Emphasized the importance of adherence and being honest about her adherence for safety. Assessment & Plan (07/29/2025 5:35 PM EDT): [...] for safety. Dyslipidemia 04/29/2015 Assessment & Plan (10/22/2025 4:47 AM EST): - Last lipid profile: 07/22/25 TRIG 196; [...] panel in 3 mo. Assessment & Plan (07/23/2025 9:27 PM EDT): [...] Encounters Date Type Department Care Team Description 11/04/2025 Orders Only [facility] [address] [place] [phone] Mariluz Trevino MD 11/04/2025 Refill [facility] [address] [place] [phone] Mariluz Trevino MD 10/22/2025 9:15 AM EST Office Visit [facility] [address] [place] [phone] Mariluz Trevino MD Primary hypertension (Primary Dx); Dyslipidemia; Acquired hypothyroidism; Metabolic dysfunction-associated steatotic liver disease (MASLD); Disorder of kidney and ureter; Hydroureter; Non-functioning kidney; Type 2 diabetes mellitus with hypoglycemia without coma, without long-term current use of insulin (HCC); Chronic right shoulder pain; Vitamin D deficiency; Chronic pain of both knees 10/22/2025 Travel 10/21/2025 Telephone [facility] [address] [place] [phone] Mariluz Trevino MD chartprep 09/05/2025 Refill [facility] [address] [place] [address] Mariluz Trevino MD 09/03/2025 Refill [facility] [address] [place] [address] Samy Baez, PharmElzbieta Type 2 diabetes mellitus with other specified complication, without long-term current use of insulin (HCC) 08/29/2025 Orders Only [facility] [address] [place] [address] Mariluz Trevino MD Type 2 diabetes mellitus with other specified complication, without long-term current use of insulin (HCC) (Primary Dx); Primary hypertension 08/29/2025 Refill [facility] [address] [place] [address] Mariluz Trevino MD Type 2 diabetes mellitus with other specified complication, without long-term current use of insulin (HCC) 08/28/2025 Telephone [facility] [address] [place], [place] [phone] Mariluz Trevino MD 08/26/2025 Travel 08/08/2025 Refill [facility] [address] [place], [place] [phone] Mariluz Trevino MD Neuropathic pain from Last 3 Months Immunizations Immunization Administration [...] Sign Reading Time Taken Comments Blood Pressure 138/90 10/22/2025 9:20 AM EST Pulse 76 10/22/2025 9:20 AM EST Temperature 35.4 C (95.7 F) 10/22/2025 9:20 AM EST Respiratory Rate 15 10/22/2025 9:20 AM EST Oxygen Saturation 100% 07/22/2025 10:34 AM EDT Inhaled Oxygen Concentration - - Weight 81.4 kg (179 lb 6.4 oz) 10/22/2025 9:20 A M EST Height 162.6 cm (5' 4 ) 10/22/2025 9:20 AM EST Body Mass Index 30.79 10/22/2025 9:20 AM EST Plan of Treatment Upcoming Encounters Date Type Department Care Team (Late st Contact Info) Description 12/02/2025 9:00 AM EST Medication Management [facility] [address] [place] [address] Samy Baez, PharmD [address], [place] [phone] Health Maintenance Due Date Last Done Comments CT Colonography 1969 FIT DNA/Cologuard 1969 FIT 1969 FOBT 1970 Sigmoidoscopy 1969 Pap Smear 1990 HPV/Cotest 1999 Hepatitis B Vaccines (3 of 3 - 19+ 3-dose series) 10/05/2010 08/10/2010, 05/18/2009, 05/12/2009 Pneumococcal Vaccine: 50+ Years (2 of 2 - PCV) 10/30/2016 10/30/2015 RSV Patients and Patients Aged 60 years or older (1 - Risk 50-74 years 1-dose series) 2019 Zoster Vaccines (1 of 2) 2019 Dental [...] (#1) 2025 01/23/2015, 2013 Diabetes: Hemoglobin A1C 01/22/2026 025, 07/22/2025, 04/01/2025, Additional history exists SDOH Screening 04/08/2026 04/08/2025 Depression Screening 04/15/2026 04/15/2025, 04/15/20 Diabetes: Foot Exam 04/15/2026 04/15/2025, 04/15/2025, 04/15/2025, Additional history exists Disability Screening 04/15/2026 04/15/2025 Alcohol/Substance Use Screening 07/22/2026 07/22/2025 Diabetes: Urine Protein Screening 07/22/2026 07/22/2025, 08/13/2024, 08/23/2023, Additional history exists Lipid Panel 07/22/2026 07/22/2025, 10/29, 08/13/2024, Additional history exists Tobacco Screening 10/22/2026 10/22/2025 Mammogram 11/04/2027 11/04/2025, 07/31, 08/22/2023, Additional history exists Cervical Cancer Screening Discontinued HIB Vaccines Aged [...] Hemoglobin A1c < 7 Result Component 7.5( 9:28 AM EST) No Samy Baez, PharmD Help patients manage their type 2 diabetes Care Plan Help patients manage their type 2 diabetes Mariluz Wang MD Weekly blood pressure task Care Plan Weekly blood pressure task No Mariluz Trevino MD Help patients manage their type 2 diabetes Care Plan Help patients manage their type 2 diabetes No Mariluz Trevino MD Patient has chronic kidney disease Care Plan Patient has chronic kidney disease Mariluz Wang MD Weekly blood pressure task Care Plan Weekly blood pressure task Mariluz Wang MD Patient has chronic kidney disease Care Plan Patient has chronic kidney disease Mariluz Wang MD Weekly blood pressure task Care Plan Weekly blood pressure task No Amber Yeung MA Weekly blood pressure task Care Plan Weekly blood pressure task No Amber Yeung MA Patient has chronic kidney disease Care Plan Patient has chronic kidney disease No Amber Yeung MA Patient has chronic kidney disease Care Plan Patient has chronic kidney disease No Amber Yeung MA Procedures Procedure Name Priority Date/Time Associated Diagnosis Comments BI MAMMOGRAM SCREENING TOMOSYNTHESIS BILATERAL Routine 11/04/2025 2:35 PM EST POCT GLYCOSYLATED HEMOGLOBIN (HGB A1C) Routine 10/22/2025 9:28 AM EST Type 2 diabetes mellitus with hypoglycemia without coma, without long-term current use of insulin ([facility]) POCT GLUCOSE Routine 10/22/2025 9:27 AM EST Type 2 diabetes mellitus with hypoglycemia without coma, without long-term current use of insulin ([facility]) ALBUMIN, RANDOM URINE W/CREATININE Routine 07/22/2025 11:08 AM EDT Type 2 diabetes mellitus with other specified complication, without long-term current use of insulin ([facility]/HCC) LIPID PANEL WITH REFLEX TO DIRECT LDL Routine 07/22/2025 11:08 AM EDT Dyslipidemia HM DIABETES EYE EXAM Routine 01/09/2024 PROPHYLAXIS [...] Recently Relevant to Health Maintenance Results * BI Mammogram Screening Tomosynthesis Bilateral (11/04/2025 2:35 PM EST) Anatomical Region Laterality Modality Breast Bilateral Mammography 11/04/2025 2:35 PM EST Narrative 11/04/2025 8:33 PM EST [facility] [address] [place], [place] [address] Mammography Report Signed Patient: Luh Bennett MR#: [id number] : 1970 Acct:[id number] Age/Sex: 55 / F ADM Date: 11/04/25 Loc: [facility] Attending Dr: Mariluz Trevino MD Ordering Physician: Mariluz Trevino MD Results: 1Negative Date of Service: 11/04/25 Follow Up: 1 Year From [facility] Mammogram Procedure(s): MM tomosynthesis screening BI Accession Number(s): [id number] cc: Mariluz Trevino MD Reason For Exam: SCREENING EXAMINATION: MM SCREENING DIGITAL BREAST TOMOSYNTHESIS, BILATERAL CLINICAL INFORMATION: Screening. Asymptomatic. COMPARISON: Comparison made to multiple prior, most recent August 27, 2024, and most remote February 15, 2017. TECHNIQUE: Digital breast tomosynthesis is performed in mediolateral oblique and craniocaudal views along with computer-aided detection (CAD). Synthesized 2D images are generated from the tomosynthesis. FINDINGS: BREAST COMPOSITION: The breasts are heterogeneously dense, which may obscure small masses. BILATERAL BREASTS: No significant masses, suspicious calcifications or other abnormalities are seen in either breast. MM/MM tomosynthesis screening BI IMPRESSION: BILATERAL BREASTS: Negative, no mammographic evidence of malignancy. Normal interval follow-up is recommended in 12 months. ASSESSMENT: BI-RADS: Category 1: Negative RECOMMENDATION: Routine annual mammography screening. FOLLOW-UP: 1 year F/U This examination should not preclude the clinical evaluation of a suspicious palpable abnormality. This patient's information was entered into a reminder system with a target due date for their next mammogram. Electronically signed by: Michelle Puga MD 11/04/2025 08:30 PM EST Dictated By: Michelle Puga MD Signed By: <Electronically signed by Michelle Puga MD in OV> 11/04/252029 DD/ 1435 TD/TT: 11/04/25 1448 Gutter Installer: Procedure Note Donotuseinterpreter, Image - 11/04/2025 [facility] [address] [place] [address] Mammography Report Signed Patient: Luh BennettMR#: [id number] : 1970Acct:[id number] Age/Sex: 55 / FADM Date: 11/04/25 Loc: [facility] Attending Dr: Mariluz Trevino MD Ordering Physician: Mariluz Trevino MDResults: 1Negative Date of Service: 11/04/25Follow Up: 1 Year From Orig ina Mammogram Procedure(s): MM tomosynthesis screening BI Accession Number(s): [id number] cc: Mariluz Trevino MD Reason For Exam: SCREENING EXAMINATION: MM SCREENING DIGITAL BREAST TOMOSYNTHESIS, BILATERAL CLINICAL INFORMATION: Screening. Asymptomatic. COMPARISON: Comparison made to multiple prior, most recent August 27, 2024, and most remote February 15, 2017. TECHNIQUE: Digital breast tomosynthesis is performed in mediolateral oblique and craniocaudal views along with computer-aided detection (CAD). Synthesized 2D images are generated from the tomosynthesis. FINDINGS: BREAST COMPOSITION: The breasts are heterogeneously dense, which may obscure small masses. BILATERAL BREASTS: No significant masses, suspicious calcifications or other abnormalities are seen in either breast. MM/MM tomosynthesis screening BI IMPRESSION: BILATERAL BREASTS: Negative, no mammographic evidence of malignancy. Normal interval follow-up is recommended in 12 months. ASSESSMENT: BI-RADS: Category 1: Negative RECOMMENDATION: Routine annual mammography screening. FOLLOW-UP: 1 year F/U This examination should not preclude the clinical evaluation of a suspicious palpable abnormality. This patient's information was entered into a reminder system with a target due date for their next mammogram. Electronically signed by: Michelle Puga MD 11/04/2025 08:30 PM EST Dictated By: Michelle Puga MD Signed By: <Electronically signed by Michelle Puga MD in OV> 11/04/252029 DD/ 1435 TD/TT: 11/04/25 1448 Gutter Installer: Mariluz Trevino MD IMG BI PROCEDURES Edited Result - Final * (ABNORMAL) POCT glycosylated hemoglobin (Hgb A1c) (10/22/2025 9:28 AM EST) Hemoglobin A1C 7.5(A) 4.0 - 5.7 % QC Media Lot # [id number] Lot# Expiration Date Blood Capillary blood specimen / Unknown 10/22/2025 9:28 AM EST Mariluz Trevino MD POINT OF CARE TEST ENTER/EDIT OR DERABLES Final Result * POCT glucose manually resulted (10/22/2025 9:27 AM EST) Glucose Blood, POC 180 60 - 200 mg/dL QC Media Lot # [id number] Lot# Expiration Date Blood Capillary blood specimen / Unknown 10/22/2025 9:27 AM EST Mariluz Trevino MD POINT OF CARE TEST ENTER/EDIT OR DERABLES Final Result * (ABNORMAL) Lipid Panel with Reflex to Direct LDL (07/22/2025 11:08 AM EDT) Triglycerides 196(H) <150 mg/dL [facility] Comment:Desirable Triglyceri de: less than 150 mg/dLBorderline High Triglyceride 150-199 mg/dLHigh Triglyceride: 200-499 mg/dLVery High Triglyceride: greater than or equal to 5OO mg/dL Cholesterol 172 <200 mg/dL [facility] Comment:Desirable Cholestero l: less than 200 mg/dLBorderline High Cholesterol: 200-239 mg/dLHigh Cholesterol: greater than 239 mg/dL LDL Cholesterol Calculated 94 <100 mg/dL [facility] Comment:Desirable LDL: less than 100 mg/dLNear Optimal/Above Optimal LDL: 110- 129 mg/dLBorderline High LDL: 130-159 mg/dLHigh LDL: 160-189 mg/dLVery High LDL: greater than or equal to 190 mg/dL HDL Cholesterol 39(L) >40 mg/dL [facility] Comment:Desirable HDL: great er than 40 mg/dL Note: This HDL assay may give artificially low results in patients with liver disease. Blood 07/22/2025 11:0 8 AM EDT 07/22/2025 1:28 PM EDT us Mariluz Trevino MD LAB BLOOD ORDERABLES Final Resul t Performing Organization Address [facility] de Phone Number [facility] [address] [place] [phone] * Albumin, Random Urine W/Creatinine (07/22/2025 11:08 AM EDT) Creatinine, Urine 76.35 mg/dL [facility] Microalbumin Urine 14.0 mg/L [facility] Microalbum Creatinine Ratio Ur 18.3 <30 ug/mg cr [facility] Comment:Albumin/Creatinine R atio Reference Ranges: Normal: < 30 ug/mg creatinine Microalbuminuria: 30 - 300 ug/mg creatinineClinical Albuminuria: > 300 ug/mg creatinine Urine 07/22/2025 11:0 8 AM EDT 07/22/2025 12:58 PM EDT us Mariluz Trevino MD LAB URINE ORDERABLES Final Resul t Performing Organization Address [facility] Co de Phone Number [facility] [address] [place] [address] [phone] * Diabetes Eye Exam (01/09/2024) Eye Exam Normal Normal, BIRADS 0 , BIRADS 1 , BIRADS 2, BIRADS 3 , BIRADS 4+ Historical Provider HEALTH MAINTENANCE Final Result * Colonoscopy (06/05/2019) Colonoscopy Normal Normal 06/05/2019 Historical Provider HEALTH MAINTENANCE Final Result from Last 3 Months or Most Recently Relevant to Health Maintenance Additional Health Concerns Active Problems Noted Date Diagnosed Date Help patients manage their type 2 diabetes 10/21 Weekly blood pressure task 10/21/2025 Help patients manage their type 2 diabetes 10/21 Patient has chronic kidney disease 10/21/2025 Weekly blood pressure task 10/21/2025 Patient has chronic kidney disease 10/21/2025 Weekly blood pressure task 10/21/2025 Weekly blood pressure task 10/21/2025 Patient has chronic kidney disease 10/21/2025 Patient has chronic kidney disease 10/21/2025 Insurance [facility] 3 Care Teams Toe Stapler Relationship Specialty Start Date End Date Mariluz Trevino MD [address] [place] [address] PCP - General Family Medicine 11/09/12 Samy Baez, PharmD [address] [place] [phone] Pharmacist Internal Medicine 07/20/24
--- OUTSIDE RECORDS SUMMARY | 2025-11-04 23:11 | XMS_ITS | Encounter Summary ---
Author Organization [employer] Address [address] [facility] 7t [place] [address] Care Team Providers Care Dressmaker Garment Fitter Name Role Phone Mariluz Trevino MD Primary Care Provider [phone] Samy Baez PharmD Unavailable [phone] Reason for Visit * Reason Comments Med Refill Encounter Details Date Type Department Care Team ([facility] st Contact Info) Description 11/04/2025 Refill [facility] [address] [place], [place] [phone] Mariluz Trevino MD [address] [place], [place] [phone] Social History Tobacco Use Types Packs/Day Years [...] Description 12/02/2025 9:00 AM EST Medication Management [facility] [address] [place] [address] Samy Baez PharmD [address] [place] [address] documented as of this encounter Goals Goal Patient Goal Type Associated Problems Recent Progress Patient-Stated? Author Blood Pressure < 140/90 Blood Pressure 138/90(2024 9:20 AM EST) No Samy Baez PharmD Hemoglobin A1c < 7 Result Component 7.5( 9:28 AM EST) No Samy Baez PharmD Help patients manage their type 2 diabetes Care Plan Help patients manage their type 2 diabetes No Mariluz Trevino MD Weekly blood pressure task Care Plan Weekly blood pressure task No Mariluz Trevino MD Help patients manage their type 2 diabetes Care Plan Help patients manage their type 2 diabetes No Mariluz Trevino MD Patient has chronic kidney disease Care Plan Patient has chronic kidney disease No Mariluz Trevino MD Weekly blood pressure task Care Plan Weekly blood pressure task No Mariluz Trevino MD Patient has chronic kidney disease Care Plan Patient has chronic kidney disease No Mariluz Trevino MD Weekly blood pressure task Care Plan Weekly blood pressure task No Amber Yeung MA Weekly blood pressure task Care Plan Weekly blood pressure task No Amber Yeung [place] Patient has chronic kidney disease Care Plan Patient has chronic kidney disease Amber Holly [place] Patient has chronic kidney disease Care Plan Patient has chronic kidney disease No Amber Yeung MA documented as of this encounter Visit Diagnoses Not on filedocumented in this encounter Additional Health Concerns Active Problems Noted Date [...] 10/21/2025 Patient has chronic kidney disease 10/21/2025 Assessment Noted Time PHQ-9 Depression Total Score: 0 04/15/20 25 9:36 AM EDT documented as of this encounter Care Teams Dressmaker Garment Fitter Relationship Specialty Start Date End Date Mariluz Trevino MD [address] [place] [address] PCP - General Family Medicine 11/09/12 Samy Baez, Eulogio [address] [place] [address] Pharmacist Internal Medicine 07/20/24 documented as of this encounter
--- OUTSIDE RECORDS SUMMARY | 2025-11-04 23:11 | XMS_ITS | Encounter Summary ---
Author Organization [employer] Address 75 [facility] 7t [place] [address] Care Team Providers Care Securities Compliance Examiner Name Role Phone Mariluz Trevino MD Primary Care Provider [phone] Samy Baez PharmD Unavailable [phone] Reason for Referral * Consultation (Routine) - Authorized Specialty Diagnoses / Procedures Referred By Contac t Referred To Contact Pharmacy Diagnoses Type 2 diabetes mellitus with other specified complication, without long-term current use of insulin (HCC) Primary hypertension Mariluz Trevino MD [address] [place] [address] Phone: tel: fax: Referral ID Status Reason Start Date Expiration Date Visits Requested Visits Authorized [id number] Authorized Consult and Treat 08/29/2025 08/29/2026 6 6 Encounter Details Date Type Department Care Team (Late st Contact Info) Description 08/29/[address] [facility] [address] [place] [phone] Mariluz Trevino MD [address] [place], [place] [phone] Type 2 diabetes mellitus with other specified complication, without long-term current use of insulin (HCC) (Primary Dx); Primary hypertension Social History Tobacco Use Types Packs/Day Years Used Date Smoking Tobacco: Never Passive Smoke Exposure: Never Smokeless Tobacco: Never Depression Answer Date Recorded Patient Health Questionnaire-9 Score 0 04/15/2025 Patient Health Questionnaire-9 Score 0 04/15/2025 Last PHQ-9: Questionnaire Data Not on file 0 04/15/2025 Housing Stability Answer Date Recorded What is your housing situation today? I have caio simsm 04/08/[address] you li [...] Description 12/02/2025 9:00 AM EST Medication Management [facility] [address] [place] [address] Samy Baez, PharmD [address] [place] [address] Scheduled Referrals Name Type Priority Associated Diagnoses Orde r Schedule Referral to Pharmacy CDTM Outpatient Referral Routine Type 2 diabetes mellitus with other specified complication, without long-term current use of insulin ([facility]) Primary hypertension Ordered: 08/29/2025 documented as of this encounter Goals Goal [...] documented as of this encounter Care Teams Securities Compliance Examiner Relationship Specialty Start Date End Date Mariluz Trevino MD [address] [place] [address] PCP - General Family Medicine 11/09/12 Samy Baez PharmD [address] [place] [address] Pharmacist Internal Medicine 07/20/24 documented as of this encounter
--- OUTSIDE RECORDS SUMMARY | 2025-11-04 23:11 | XMS_ITS | Encounter Summary ---
Author Organization [employer] Address 75 [facility] 7t [place] [address] Care Team Providers Care Porter Bath Name Role Phone Mariluz Trevino MD Primary Care Provider [phone] Samy Baez PharmD Unavailable [phone] Reason for Visit * Reason Comments Med Refill Encounter Details Date Type Department Care Team ([facility] st Contact Info) Description 11/07/2023 Refill [facility] [address] [place], [place] [phone] Mamta Ramires MD [address] [place] [address] Type 2 diabetes mellitus with hyperglycemia, with long-term current use of insulin ([facility]) Social History Tobacco Use Types Packs/Day Years [...] Description 12/02/2025 9:00 AM EST Medication Management [facility] [address] [place] [address] Saym Baez, PharmD [address] [place] [address] documented as of this encounter Visit Diagnoses Diagnosis Type 2 diabetes mellitus with hyperglycemia, with long-term current use of insulin (HCC) documented in this encounter Care Teams Porter Bath Relationship Specialty Start Date End Date Mariluz Trevino MD [address] [place] [id number] PCP - General Family Medicine 11/09/12 Samy Baez, PharmD [address] [place] [phone] Pharmacist Internal Medicine 07/20/24 documented as of this encounter
--- OUTSIDE RECORDS SUMMARY | 2025-11-04 23:11 | XMS_ITS | Encounter Summary ---
Author Organization [employer] Address [address] [facility] 7t [place] [address] Care Team Providers Care President & Ceo Name Role Phone Mariluz Trevino MD Primary Care Provider [phone] Samy Baez PharmD Unavailable [phone] Encounter Details Date Type Department Care Team (Late st Contact Info) Description 05/10/2024 Abstract [facility] [address] [place], [place] [phone] Mariluz Trevino MD [address] [place], [place] [phone] Social History Tobacco Use Types Packs/Day Years [...] Description 12/02/2025 9:00 AM EST Medication Management [facility] [address] [place], [place] [phone] Samy Baez, Eulogio [address] [place] [address] documented as of this encounter Procedures Procedure [...] documented as of this encounter Care Teams President & Ceo Relationship Specialty Start Date End Date Mariluz Trevino MD [address] [place] [address] [phone] PCP - General Family Medicine 11/09/12 Samy Baez, PharmD [address] [place] [address] [phone] Pharmacist Internal Medicine 07/20/24 documented as of this encounter
--- OUTSIDE RECORDS SUMMARY | 2025-11-04 23:11 | XMS_ITS | Encounter Summary ---
Author Organization [employer] Address [address] [place] [address] 7t [place] [address] Care Team Providers Care Retail Team Leader Name Role Phone Mariluz Trevino MD Primary Care Provider [phone] Samy Baez PharmD Unavailable [phone] Reason for Visit * Reason Comments Med Refill Encounter Details Date Type Department Care Team (Late st Contact Info) Description 06/27/2023 Refill [facility] [address] [place], [place] [phone] Mariluz Trevino MD [address] [place], [place] [phone] Type 2 diabetes mellitus with other specified complication, without long-term current use of insulin ([facility]/HCC); Hypertriglyceridemia Social History Tobacco Use Types Packs/Day [...] Description 12/02/2025 9:00 AM EST Medication Management [facility] [address] [place], [place] [phone] Samy Baez, PharmD [address] [place], [place] [phone] documented as of this encounter Visit Diagnoses Diagnosis Type 2 diabetes mellitus with other specified complication, without long-term current use of insulin ([facility]) Hypertriglyceridemia Pure hyperglyceridemia documented in this encounter Care Teams Retail Team Leader Relationship Specialty Start Date End Date Mariluz Trevino MD [address] [place], [place] [phone] PCP - General Family Medicine 11/09/12 Samy Baez, Eulogio [address] [place] [address] Pharmacist Internal Medicine 07/20/24 documented as of this encounter
--- OUTSIDE RECORDS SUMMARY | 2025-11-04 23:11 | XMS_ITS | Encounter Summary ---
Author Organization [employer] Address 75 [facility] 7t [place] [address] Care Team Providers Care Mold Tooling Technician Name Role Phone Mariluz Trevino MD Primary Care Provider [phone] Samy Baez PharmD Unavailable [phone] Encounter Details Date Type Department Care Team (Late st Contact Info) Description 11/04/2025 Orders Only [facility] [address] [place], [place] [phone] Mariluz Trevino MD [address] [place], [place] [phone] Social History Tobacco Use Types Packs/Day Years [...] Description 12/02/2025 9:00 AM EST Medication Management [facility] [address] [place] [address] Samy Baez PharmD [address] [place] [address] documented as of this encounter Goals Goal [...] manage their type 2 diabetes No Mariluz Trevion MD Patient has chronic kidney disease Care [...] Plan Patient has chronic kidney disease No Eliezer Yeungley, [place] Patient has chronic kidney disease Care Plan Patient has chronic kidney disease No Amber Yeung [place] documented as of this encounter Procedures Procedure Name Priority Date/Time Associated Diagnosis Comments BI MAMMOGRAM SCREENING TOMOSYNTHESIS BILATERAL Routine 11/04/2025 2:35 PM EST documented in this encounter Results * BI Mammogram Screening Tomosynthesis Bilateral (11/04/2025 2:35 PM EST) Anatomical Region Laterality Modality Breast Bilateral Mammography 11/04/2025 2:35 PM EST Narrative 11/04/2025 8:33 PM EST [facility] [address] [place] [address] Mammography Report Signed Patient: Luh Bennett MR#: [id number] : 1970 Acct:[id number] Age/Sex: 55 / F ADM Date: 11/04/25 Loc: [facility] Attending Dr: Mariluz Trevino MD Ordering Physician: Mariluz Trevino MD Results: 1Negative Date of Service: 11/04/25 Follow Up: 1 Year From Orig inal Mammogram Procedure(s): MM tomosynthesis screening BI Accession Number(s): [id number] cc: Mariluz Trevino MD Reason For Exam: [...] OV> 11/04/252029 DD/ 1435 TD/TT: 11/04/25 1448 Business Associate: Procedure Note Donotuseinterpreter, Image - [facility] [address] [place], [place] [address] Mammography Report Signed Patient: Luh BennettMR#: [id number] : 1970Acct:[id number] Age/Sex: 55 / FADM Date: 11/04/25 Loc: [facility] Attending Dr: Mariluz Trevino MD Ordering Physician: Mariluz Trevino MDResults: 1Negative Date of Service: 11/04/25Follow Up: 1 Year From Orig ina Mammogram Procedure(s): MM tomosynthesis screening BI Accession Number(s): [id number] cc: Mariluz Trevino MD Reason For Exam: [...] by: Michelle Puga MD 11/04/2025 08:30 PM [facility] Dictated By: Michelle Puga MD Signed By: <Electronically signed by Michelle Puga MD in OV> 11/04/252029 DD/ 1435 TD/TT: 11/04/25 1448 Business Associate: Mariluz Trevino MD IMG BI PROCEDURES Edited Result - Final documented in this encounter Visit Diagnoses Not [...] documented as of this encounter Care Teams Mold Tooling Technician Relationship Specialty Start Date End Date Mariluz Trevino MD [address] [place] [address] PCP - General Family Medicine 11/09/12 Samy Baez, Eulogio [address] [place] [address] Pharmacist Internal Medicine 07/20/24 documented as of this encounter
--- OUTSIDE RECORDS SUMMARY | 2025-11-04 23:11 | XMS_ITS | Encounter Summary ---
Author Organization [employer] Address 75 [facility] 7t [place] [address] Care Team Providers Care Scratch Brusher Name Role Phone Mariluz Trevino MD Primary Care Provider [phone] Samy Baez PharmD Unavailable [phone] Reason for Visit * Reason Onset Date Comments Appointment Request 02/06/2025 Encounter Details Date Type Department Care Team ([facility] st Contact Info) Description 02/06/2025 Telephone [facility] [address] [place], [place] [phone] Mariluz Trevino MD [address] [place], [place] [phone] Appointment Request Social History Tobacco Use Types [...] 9:00 AM EST Medication Management [facility] [address] [place] [address] Samy Baez PharmD [address] [place] [address] documented as of this encounter Goals Goal Patient Goal Type Associated Problems Recent Progress Patient-Stated? Author Blood Pressure < 140/90 Blood Pressure 138/90(2024 9:20 AM EST) No Samy Baez, PharmElzbieta Hemoglobin A1c < 7 Result Component 7.5( 9:28 AM EST) No Samy Baez PharmD documented as of this encounter Visit Diagnoses Not on filedocumented in this encounter Additional Health Concerns Assessment Noted Time PHQ-9 Depression Total Score: 0 11/08/20 23 1:24 PM EST documented as of this encounter Care Teams Scratch Brusher Relationship Specialty Start Date End Date Mariluz Trevino MD [address] [place] [address] PCP - General Family Medicine 11/09/12 Samy Baez, PharmD [address] [place] [phone] Pharmacist Internal Medicine 07/20/24 documented as of this encounter
== END 2025-11-04 14:16 | disposition home or self-care (01) ==
LOC: HO.MAMMO 14:15
PROVIDERS: PCP Family Medicine; Visit Provider Family Medicine
DX: Z12.31 Encounter for screening mammogram for malignant neoplasm of breast (principal)
CPT/HCPCS: 77063; 77067

== ENCOUNTER → 2025-11-04 14:30 | Outpatient (BNV) | payer OTHER, SELFPAY | PROVIDERS: PCP Family Medicine; Visit Provider Radiology Body Imaging | DX: Z12.31 Encounter for screening mammogram for malignant neoplasm of breast (principal) | CPT/HCPCS: 77063; 77067 ==

== ENCOUNTER 2025-11-05 11:50 | Day surgery (SDC) | payer OTHER, SELFPAY ==
--- NOTE | 2025-11-01 12:58 | P.CONAN_ITS ---
Documented by User: Kayla Regalado NP 11/01/25 12:58 HPI - Anesthesia Eval Consult details Narrative: 55yo F for Colonoscopy Anesthesia Pre-Procedure Meds Is the patient on any of the following meds?: GLP1/DPP4 PMFSH Active Problems Active Problems: All Active Problems Non-functioning kidney (Acute) Right renal mass (Acute) Past Medical History Medical History Dialysis patient Dyslipidemia Type 2 diabetes mellitus Hypothyroidism Non-functioning kidney Hypertension Left upper quadrant pain Surgical History Surgical History H/O hysterectomy for benign disease H/O section H/O colonoscopy Social History Social History Alcohol intake: current Alcohol intake frequency: holidays/special occasions only Patient Tobacco Use Status: Never used Tobacco Use of substances other than those prescribed or required for medical reasons: No Are you DNR?: No Advance Directives: No Advance Directives Information Provided: Yes Patient : No : No Meds Allergies Allergy/AdvReac Type Severity Reaction Status Date / Time No Known Allergies (No Known Allergy Verified 11/07/23 19:07 Allergies*) Home Medications ?Medication ?Instructions ?Recorded ?Confirmed ?Last Taken ?Type calcium 600 mg (as tab PO 10/03/23 Unknown His tory carbonate)-vitamin D3 5 mcg (200 unit) tablet gabapentin 100 mg capsule mg PO 10/03/23 Unknown Hist ory levothyroxine 125 mcg tablet 125 mcg PO DAILY 10/03/23 Unknown History losartan 25 mg tablet 25 mg PO DAILY 10/03/23 Unk nown History metformin 500 mg tablet,extended 1,000 mg PO BID 10/03 Unknown History release 24 hr omega-3 300 mg-dha 120 mg-epa 180 cap PO 10/03/23 Unk nown History mg-fish oil 1,000 mg capsule pioglitazone 45 mg tablet 45 mg PO DAILY 10/03/23 Unk nown History atorvastatin 10 mg tablet 10 mg PO BEDTIME 08/19/25 U nknown History tirzepatide 7.5 mg/0.5 mL mg subcut QWEEK 08/19/25 History subcutaneous pen injector (Mounjaro) Assessment and Plan Assessment Anesthesia Assessment: Chart Reviewed Documented by User: Yoni Little MD 11/05/25 13:52 [facility] Past Medical History Medical History Dialysis patient Dyslipidemia Type 2 diabetes mellitus Hypothyroidism Non-functioning kidney Hypertension Left upper quadrant pain Family History Family history of problems with anesthesia: No Surgical History Surgical History H/O hysterectomy for benign disease H/O section H/O colonoscopy History of Problems with Anesthesia: No Social History Social History Alcohol intake: current Alcohol intake frequency: holidays/special occasions only Patient Tobacco Use Status: Never used Tobacco Use of substances other than those prescribed or required for medical reasons: No Are you DNR?: No Advance Directives: No Advance Directives Information Provided: Yes Patient : No : No Meds Allergies Allergy/AdvReac Type Severity Reaction Status Date / Time No Known Allergies (No Known Allergy Verified 11/07/23 19:07 Allergies*) Home Medications ?Medication ?Instructions ?Recorded ?Confirmed ?Last Taken ?Type calcium 600 mg (as tab PO 10/03/23 Unknown His tory carbonate)-vitamin D3 5 mcg (200 unit) tablet gabapentin 100 mg capsule mg PO 10/03/23 Unknown Hist ory levothyroxine 125 mcg tablet 125 mcg PO DAILY 10/03/23 Unknown History losartan 25 mg tablet 25 mg PO DAILY 10/03/23 Unk nown History metformin 500 mg tablet,extended 1,000 mg PO BID 10/03 Unknown History release 24 hr omega-3 300 mg-dha 120 mg-epa 180 cap PO 10/03/23 Unk nown History mg-fish oil 1,000 mg capsule pioglitazone 45 mg tablet 45 mg PO DAILY 10/03/23 Unk nown History atorvastatin 10 mg tablet 10 mg PO BEDTIME 08/19/25 U nknown History tirzepatide 7.5 mg/0.5 mL mg subcut QWEEK 08/19/25 History subcutaneous pen injector (Idalia) Exam Exam Date and Time: 11/05/25 Airway Mallampati Class: II TM Dist: >3cm Neck ROM: Full Loose/Missing/Broken Teeth: No Heart: rrr Lungs: ctab vesicular Assessment and Plan Assessment Anesthesia Assessment: Anesthesia Plan Discussed Final Anesthetic Review Family History of Problems with Anesthesia: No History of Problems with Anesthesia: No NPO: Yes ASA Class: III Final Preanesthetic Review: No Changes in Pt Med Stat, Meds/Allgs Chart Reviewed, Consent Obtained/Reviewed and Anes Risks/Benef Reviewed Patient Risk: Low Procedure Risk: Low Anesthetic Plan Anesthetic Plan: MAC: Disposition: Standard PACU
[2025-11-05 13:42] VITALS: BMI 30.7
[2025-11-05 13:44] VITALS: BP 141/83; PULSE 67; RESP 16; TEMP 36.7; O2SAT 100
--- NOTE | 2025-11-05 13:47 | MHC.SHP ---
Pre-Procedural Eval Section A - 24 Hr Update-Section A only Date of Service: 11/05/25 Section B - Complete if H&P > 30 days Chief Complaint: screening Details of Present Illness: Dyslipidemia Type 2 diabetes mellitus Hypothyroidism Non-functioning kidney Hypertension Left upper quadrant pain Present Medications: see Short Stay Collaborative assessment Allergies: Allergies Allergy/AdvReac Type Severity Reaction Status Date / Time No Known Allergies (No Known Allergy Verified 11/07/23 19:07 Allergies*) Review of Systems Review of Systems Comment: Ten point ROS negative Exam Exam Comment: Gen appear: No acute distress HEENT: no icterus Chest: No overt resp distress Abd: soft, nontender, nondistended Psych: Stable affect, answering questions appropriately Neuro: A/Ox3 noted to move all extremities spontaneously Ext: no peripheral edema Plan Diagnosis/Plan: Unchanged I have reviewed the history and physical and performed a pertinent physical examination on my patient. No changes have occurred unless specified. Time Spent With Patient Time: Total time managing care of this patient today ____ minutes.
[2025-11-05 13:52] LABS: Glucose, Whole Blood 136 mg/dL (60-115)
--- NOTE | 2025-11-05 14:31 | P.OPN-COLO_ITS ---
Colonoscopy Operative Note Operative Note Date of Service: 11/05/25 Narrative: Procedure: Colonoscopy Indication: Screening Endoscopist: Patricia Boothe MD Anesthesia Provider: Dr Triston Jacobo Anesthesia type: MAC Instrument: Olympus [id number]-H190L Consent: Indication, risks vs benefits, and alternatives were discussed with the patient with the help of a seismic interpreter who gave written informed consent to proceed. EKG, pulse, pulse oximetry and blood pressure were monitored throughout the procedure. Please see anesthesia flowsheet. Procedure: The patient was brought to the procedure room and placed in the left lateral decubitus position. IV medications were administered by the anesthesia provider in attendance. A digital rectal exam was performed which was normal. A distal attachment cap was affixed to the tip of the colonoscope which was then inserted through the anus and advanced through the colon to the cecum at 75 cm,and terminal ileum. Appendiceal orifice and ileocecal valve were identified. Mucosa was carefully examined under high definition white light as the instrument was slowly withdrawn in a retrograde panoramic fashion. Retroflexion was performed in rectum. The procedure was not difficult. There were no immediate obvious complications. The quality of the prep was BBPS: 2+1+2 = inadequate Withdrawal time 14 minutes. Limitations: Poor prep. Findings: Mucosa: Significant liquid, opaque stool in the transverse colon precluding visualization for polyps. Remaining mucosa was normal to the extent examined. Protruding lesions: * Medium internal hemorrhoids without stigmata of recent bleeding. Excavated lesions: * Few diverticula of sigmoid colon. Impression: 1. Poor prep 2. Diverticulosis 3. Internal hemorrhoids Recommendations: - repeat colonoscopy within a year for poor prep
[2025-11-05 14:33] VITALS: BP 105/65; PULSE 67; RESP 10; TEMP 36.1; O2SAT 99
[2025-11-05 14:48] VITALS: BP 121/76; PULSE 68; RESP 16; TEMP 36.2; O2SAT 100
== END 2025-11-05 15:38 | disposition home or self-care (01) ==
PROVIDERS: PCP Family Medicine; Visit Provider Internal Medicine
PROC: 0DJD8ZZ Inspection of Lower Intestinal Tract, Via Natural or Artificial Opening Endoscopic (ICD-10-PCS; CPT 45378; principal; 2025-11-05 14:00)
DX: Z12.11 Encounter for screening for malignant neoplasm of colon (principal); E11.9 Type 2 diabetes mellitus without complications; K57.30 Diverticulosis of large intestine without perforation or abscess without bleeding; K64.8 Other hemorrhoids; Z91.199 Patient's noncompliance with other medical treatment and regimen due to unspecified reason
CPT/HCPCS: 45378; 82947; J2003

== ENCOUNTER → 2025-11-05 11:50 | Outpatient (BNV) | payer OTHER, SELFPAY | PROVIDERS: PCP Family Medicine; Visit Provider Internal Medicine | DX: Z12.11 Encounter for screening for malignant neoplasm of colon (principal) | CPT/HCPCS: 45378 ==